=== PATIENT | female | born 1985 | race Two or more races ===

== ENCOUNTER → 2020-03-01 08:49 | Outpatient (BNVA) | payer MEDICAID, SELFPAY | PROVIDERS: PCP Internal Medicine; Visit Provider Nurse Practitioner | DX: Z76.89 Persons encountering health services in other specified circumstances (principal) ==

== ENCOUNTER → 2020-06-19 13:08 | Outpatient (BNVA) | payer MEDICAID, SELFPAY | PROVIDERS: PCP Internal Medicine; Visit Provider Nurse Practitioner ==

== ENCOUNTER 2020-08-27 12:19 | Emergency (ER) | payer MEDICAID, SELFPAY ==
--- NOTE | ~2020-08-27 | XR_ITS ---
EXAMINATION: XR HAND, RIGHT CLINICAL INFORMATION: Right hand injury COMPARISON: None TECHNIQUE: PA, lateral, and oblique views of the right hand. FINDINGS: Bone alignment is normal. No fracture or dislocation is seen. Joint spaces are normal. Soft tissues are normal. XR/XR hand RT 2V IMPRESSION: No fracture or dislocation seen.
[2020-08-27 12:34] VITALS: BP 125/74; PULSE 86; RESP 17; TEMP 35.9; O2SAT 98; BMI 38.6
--- NOTE | 2020-08-27 12:59 | ED_ITS ---
HPI - Extremity Problem General Chief complaint: Extremity Injury, Upper <SINCERE Irene Last Filed: 08/27/20 20:00> Stated complaint: right hand pain <SINCERE Irene Last Filed: 08/27/20 20:00> Time Seen by Provider: 08/27/20 12:58 <SINCERE Irene Last Filed: 08/27/20 20:00> Source: patient and educational interpreter <SINCERE Irene Last Filed: 08/27/20 20:00> Mode of arrival: ambulatory <SINCERE Irene Last Filed: 08/27/20 20:00> Limitations: language barrier <SINCERE Irene Last Filed: 08/27/20 20:00> History of Present Illness HPI Narrative: 34-year-old female here with right hand pain after a injury 1 week ago. Patient tells me she lost her balance falling causing a flexion injury to the right hand. Since then she has had persistent pain in the right hand and wrist. She is right-hand dominant. No numbness, tingling, coldness to the ham. No fevers, chills or redness <SINCERE Irene Last Filed: 08/27/20 20:00> MD Complaint: extremity pain and extremity swelling <SINCERE Irene Last Filed: 08/27/20 20:00> Related Data Home medications: Previous Rx's Medication Instructions Recorded levofloxacin 500 mg tablet 500 mg PO DAILY 14 Days #14 tab 03/01/20 metronidazole 500 mg tablet 500 mg PO TID 14 Days #42 tab 03/01/20 dicyclomine 20 mg tablet 20 mg PO QID 30 Days #120 tab 05/30/20 <SINCERE Irene Last Filed: 08/27/20 20:00> Allergies/Adverse reactions: Allergies Allergy/AdvReac Type Severity Reaction Status Date / Time SEAFOOD Allergy Unknown Rash Uncoded 03/01/20 08:51 <SINCERE Ierne Last Filed: 08/27/20 20:00> Review of Systems Review of Systems: Yes all other systems are reviewed and are negative <Salma Goldman NP - Last Filed: 08/27/20 20:00> Constitutional: Constitutional: Reports no additional constitutional complaints, Denies body ache(s), Denies chills, Denies fever(s), Denies headache(s) and Denies weakness <Salma Goldman NP - Last Filed: 08/27/20 20:00> Eyes: Eyes: Reports no additional eye complaints and Denies change in vision <Salma Goldman NP - Last Filed: 08/27/20 20:00> ENT: Reports system reviewed and no additional complaints, except as documented, Denies dizziness, Denies headache(s), Denies nasal congestion, Denies nasal discharge and Denies neck pain <Salma Goldman NP - Last Filed: 08/27/20 20:00> Cardiovascular: Cardiovascular: Reports no additional cardiovascular complaints, Denies chest pain, Denies leg edema and Denies dyspnea <Salma Goldman NP - Last Filed: 08/27/20 20:00> Respiratory: Respiratory: Reports no additional respiratory complaints, Denies cough and Denies dyspnea <Salma Goldman NP - Last Filed: 08/27/20 20:00> Gastrointestinal: Gastrointestinal: Reports no additional gastrointestinal complaints, Denies abdominal pain, Denies diarrhea, Denies nausea and Denies vomiting <Salma Goldman NP - Last Filed: 08/27/20 20:00> Genitourinary: Genitourinary: Reports no additional female genitourinary complaints and Denies urinary incontinence <Salma Goldman NP - Last Filed: 08/27/20 20:00> Musculoskeletal: Musculoskeletal: Reports no additional musculoskeletal complaints, Denies back pain, Reports arthralgias, Denies joint swelling, Reports limited range of motion, Denies neck pain, Denies numbness and Denies tingling <Salma Goldman NP - Last Filed: 08/27/20 20:00> Integumentary/Breasts: Skin/Breast: Reports system reviewed and no additional complaints, except as docu and Denies rash <Salma Goldman NP - Last Filed: 08/27/20 20:00> Neurologic: Reports system reviewed and no additional complaints, except as documented, Denies Abnormal speech present, Denies dizziness, Denies heada noelle(s), Denies numbness, Denies tingling and Denies weakness <Salma Goldman NP - Last Filed: 08/27/20 20:00> [facility] Past Medical History Attestation statement: The following information was validated with the patient. <Salma Goldman NP - Last Filed: 08/27/20 20:00> Source: old records reviewed and nursing notes reviewed <Salma Goldman NP - Last Filed: 08/27/20 20:00> Surgical History: Surgical History Hx of section <Salma Goldman NP - Last Filed: 08/27/20 20:00> Family History Family History: Family History Father No problems noted. Mother Absolute anemia <Salma Goldman NP - Last Filed: 08/27/20 20:00> Social History Social History: Social History Household Members: Spouse Alcohol intake: current Alcohol intake frequency: does not drink <Salma Goldman NP - Last Filed: 08/27/20 20:00> Physical Exam Vital Signs: Vital Signs: Last Vital Signs Temp 96.6 F L 08/27/20 12:34 Pulse 86 08/27/20 12:34 Resp 17 08/27/20 12:34 BP 125/74 08/27/20 12:34 Pulse Ox 98 08/27/20 12:34 Body Mass Index 38.6 <Salma Goldman NP - Last Filed: 08/27/20 20:00> Vital Signs: Last Vital Signs Temp 96.6 F L 08/27/20 12:34 Pulse 86 08/27/20 12:34 Resp 17 08/27/20 12:34 BP 125/74 08/27/20 12:34 Pulse Ox 98 08/27/20 12:34 Body Mass Index 38.6 <Markie Meidna MD - Last Filed: 10/04/20 14:58> Const: General: cooperative, healthy appearing, comfortable and no acute distress <Salma Goldman NP - Last Filed: 08/27/20 20:00> Orientation/consciousness: patient oriented x3 <Salma Goldman NP - Last Filed: 08/27/20 20:00> Limitations: no limitations <Salma Goldman NP - Last Filed: 08/27/20 20:00> HENMT: Head: Yes normal to inspection <Salma Goldman NP - Last Filed: 08/27/20 20:00> Ears: hearing grossly normal bilaterally <Salma Goldman NP - Last Filed: 08/27/20 20:00> General nose exam: Normal external nose present <SINCERE Irene Last Filed: 08/27/20 20:00> Face and sinus: Yes normal facial exam <Salma Goldman NP - Last Filed: 08/27/20 20:00> Mouth: Normal oral and palatal mucosa present <Salma Goldman NP - Last Filed: 08/27/20 20:00> Throat: Yes posterior oropharynx normal <Salma Goldman NP - Last Filed: 08/27/20 20:00> Eyes: General: appearance normal, both eyes and all related structures <Salma Goldman NP - Last Filed: 08/27/20 20:00> Pupils: Equal, round and reactive pupils present <Salma Goldman NP - Last Filed: 08/27/20 20:00> Neck: Neck: Yes normal visual inspection <Salma Goldman NP - Last Filed: 08/27/20 20:00> Chest: Chest palpation & inspection: normal inspection of the chest <Salma Goldman NP - Last Filed: 08/27/20 20:00> Resp: Effort & Inspection: normal respiratory effort <SINCERE Irene Last Filed: 08/27/20 20:00> Auscultation: clear to auscultation bilaterally <SINCERE Irene Last Filed: 08/27/20 20:00> Cardio: Rate: regular rate <Salma Goldman NP - Last Filed: 08/27/20 20:00> Rhythm: regular rhythm <Salma Goldman NP - Last Filed: 08/27/20 20:00> Peripheral pulses: Peripheral pulses 2+ throughout <Salma Goldman NP - Last Filed: 08/27/20 20:00> GI: Inspection: Yes normal to inspection <Salma Goldman NP - Last Filed: 08/27/20 20:00> Palpation (GI): Soft to palpation and nontender <Salma Goldman NP - Last Filed: 08/27/20 20:00> Auscultation: normal bowel sounds <Salma Goldman NP - Last Filed: 08/27/20 20:00> Back/Spine/Pelvis: Thoracic/Lumbar Spine: thoracic and lumbar spine normal to inspection <Salma Goldman NP - Last Filed: 08/27/20 20:00> Skin: General skin exam: no rashes or lesions noted <Salma Goldman NP - Last Filed: 08/27/20 20:00> Neuro: General: patient oriented x3, no focal motor deficits and normal sensation to monofilament <Salma Goldman NP - Last Filed: 08/27/20 20:00> Cranial nerves: Yes Equal, round and reactive pupils present <Salma Goldman NP - Last Filed: 08/27/20 20:00> Cognition (Neuro): normal cognition <Salma Goldman NP - Last Filed: 08/27/20 20:00> Speech: No Abnormal speech present <Salma Goldman NP - Last Filed: 08/27/20 20:00> Gait exam (Neuro): Normal gait present <Salma Goldman NP - Last Filed: 08/27/20 20:00> Motor exam (neuro): 5/5 motor strength present throughout <Salma Goldman NP - Last Filed: 08/27/20 20:00> Extrem: Other: Pain over the distal dorsal aspect of the right hand at the proximal 1st and 2nd digit. There is snuffbox tenderness. No obvious deformity. Neurovascular intact distally <Salma Goldman NP - Last Filed: 08/27/20 20:00> General: Yes normal to inspection <Salma Goldman NP - Last Filed: 08/27/20 20:00> Course Course Course Narrative: 34-year-old female here with right hand and wrist pain status post injury. Will need x-rays 1400-x-ray show no bony abnormality. The patient is 7 days out from her injury so I would expect if she had a scaphoid fracture this would show up on her x-ray at this point. Will place on wrist splint. Recommended RICE. Reviewed worrisome signs and symptoms of when to return to the emergency department. Comfortable discharge home. <Salma Goldman NP - Last Filed: 08/27/20 20:00> I have reviewed the chart <Markie Medina MD - Last Filed: 10/04/20 14:58> Procedures Procedure Narrative Procedure Narrative: wrist velcro splint <Salma Goldman NP - Last Filed: 08/27/20 20:00> MDM - Extremity (Nontraumatic) MDM Narrative Medical decision making narrative: Sprain versus strain versus fracture <Salma Goldman NP - Last Filed: 08/27/20 20:00> Medical Records Attestation: I reviewed the patient's medical records. <Salma Goldman NP - Last Filed: 08/27/20 20:00> Lab Data Attestation: I reviewed the patient's lab results. <Salma Goldman NP - Last Filed: 08/27/20 20:00> Imaging Data hand right x-ray: Attestation: I personally reviewed and interpreted this imaging study as follows: <Salma Goldman NP - Last Filed: 08/27/20 20:00> Radiologist's impression: EXAMINATION: XR HAND, RIGHT CLINICAL INFORMATION: Right hand injury COMPARISON: None TECHNIQUE: PA, lateral, and oblique views of the right hand. FINDINGS: Bone alignment is normal. No fracture or dislocation is seen. Joint spaces are normal. Soft tissues are normal. XR/XR hand RT 2V IMPRESSION: No fracture or dislocation seen. <Salma Goldman NP - Last Filed: 08/27/20 20:00> Discharge Plan Discharge Clinical Impression: Sprain and strain of wrist <Salma Goldman NP - Last Filed: 08/27/20 20:00> Patient Disposition: Home, Self-Care <Salma Goldman NP - Last Filed: 08/27/20 20:00> Instructions: Wrist Sprain (ED) <Salma Goldman NP - Last Filed: 08/27/20 20:00> Additional Instructions: Use the splint for comfort Follow-up with her primary care doctor in 5-7 days if you have persistent pain Ice, elevation, limit use of the hand <Salma Goldman NP - Last Filed: 08/27/20 20:00> Prescriptions: No Action dicyclomine 20 mg tablet 20 mg PO QID 30 Days Qty: 120 RF: 1 levofloxacin 500 mg tablet 500 mg PO DAILY 14 Days Qty: 14 RF: 0 metronidazole [Flagyl] 500 mg tablet 500 mg PO TID 14 Days Qty: 42 RF: 0 <Salma Goldman NP - Last Filed: 08/27/20 20:00> Referrals: [facility] [Primary Care Provider] - 2 days <Salma Goldman NP - Last Filed: 08/27/20 20:00> Interventions: ED Discharge Assessment Last Done: 08/27/20 14:17 <Salma Goldman NP - Last Filed: 08/27/20 20:00> Discharge Date/Time: 08/27/20 14:17 <Salma Goldman NP - Last Filed: 08/27/20 20:00> Print Language: Uzbek <Salma Goldman NP - Last Filed: 08/27/20 20:00>
== END 2020-08-27 14:17 | disposition home or self-care (01) ==
PROVIDERS: Emergency Provider Emergency Medicine
DX: S63.501A Unspecified sprain of right wrist, initial encounter (principal); S66.912A Strain of unspecified muscle, fascia and tendon at wrist and hand level, left hand, initial encounter; W19.XXXA Unspecified fall, initial encounter; Y93.9 Activity, unspecified; Y92.9 Unspecified place or not applicable; Y99.9 Unspecified external cause status
CPT/HCPCS: 29125; 73120; 99284

== ENCOUNTER 2020-10-19 14:52 | Outpatient (REF) | payer MEDICAID, SELFPAY ==
[2020-10-19 17:17] LABS: MANUAL DIFF FLAG NO
[2020-10-19 17:19] LABS: Basophils Percent Auto 0.1 % (0-2); Eosinophils Absolute Auto 0.3 X10*3/uL (0.0-0.4); Eosinophils Percent Auto 2.9 % (0-4); Hematocrit 33.6 % (37-47); Hemoglobin 10.1 g/dl (12.0-16.0); Imm Gran Abs Auto 0.04 X10*3/uL (0.00-0.03); Imm Gran Pct Auto 0.5 % (0.0-0.4); Lymphocytes Percent Auto 22.2 % (20-40); Mean Corpuscular HGB Conc 30.1 g/dl (31.0-35.0); Mean Platelet Volume 10.7 fL (9.4-12.3); Monocytes Absolute Auto 0.7 X10*3/uL (0.1-1.2); Monocytes Percent Auto 7.9 % (2-11); Neutrophils Absolute Auto 5.9 X10*3/uL (2.0-8.3); Neutrophils Percent Auto 66.4 % (45-73); Platelet Count 314 X10*3/uL (160-400); Red Cell Distribution Width 18.8 % (11.0-16.0); White Blood Count 8.9 X10*3/uL (4.8-10.8)
[2020-10-19 17:41] LABS: Anion Gap 11 (12-20); C Reactive Protein 1.05 mg/dL (< or = 0.50); Carbon Dioxide 29 mmol/L (22-29); Chloride 103 mmol/L (96-108); Potassium 3.6 mmol/L (3.3-5.1); Sodium 139 mmol/L (135-145)
== END 2020-10-19 14:53 | disposition home or self-care (01) ==
LOC: HO.XRAY 14:52
PROVIDERS: Visit Provider Nurse Practitioner
DX: K64.9 Unspecified hemorrhoids (principal); K52.9 Noninfective gastroenteritis and colitis, unspecified; R31.9 Hematuria, unspecified; R82.998 Other abnormal findings in urine; M54.9 Dorsalgia, unspecified
CPT/HCPCS: 36415; 80051; 85025; 86140; 99212

== ENCOUNTER → 2021-09-25 10:43 | Outpatient (BNVA) | payer MEDICAID, SELFPAY | PROVIDERS: PCP Internal Medicine; Visit Provider Obstetrics & Gynecology | DX: Z01.419 Encounter for gynecological examination (general) (routine) without abnormal findings (principal) | CPT/HCPCS: 99202 ==

== ENCOUNTER 2021-10-06 13:53 | Emergency (ER) | payer MEDICAID, SELFPAY ==
[2021-10-06 14:23] VITALS: BP 118/58; BP 128/83; PULSE 86; PULSE 96; RESP 18; TEMP 36.2; O2SAT 97; O2SAT 98; BMI 41.5
[2021-10-06 15:38] VITALS: BP 138/60; PULSE 61; RESP 16; TEMP 36.8; O2SAT 98
--- NOTE | 2021-10-06 15:38 | ED.PSYCH ---
HPI - Psych General Chief Complaint: Psychiatric Symptoms Stated Complaint: SI Time Seen by Provider: 10/06/21 15:32 Source: patient Mode of arrival: ambulatory Limitations: no limitations History of Present Illness HPI Narrative: 35-year-old female with pmh of anixety and depresson presents to ED for anxiety attack. Patient states she had a panic attack today due to argument with family and mother. Patient states that family issues. Patient states she became so overwhelmed with emotion and anger she started having anxiety attack came to the ED. states her mom and herself have a bad history and relationship. Patient denies any suicidal or homicidal ideation. Patient denies any auditory visual hallucinations. presently patient asymptomatic. Patient does not have any physical complaints. patient denies any chest pain, shortness of breath, pleurisy, leg swelling, calf pain, coughing up blood, recent long travel, recent surgery, history or blood clots, or control pills Related Data Home Medications Medication Instructions Recorded Confirmed albuterol sulfate 90 mcg/actuation 1 inh inhalation Q4-6H PRN 10/19/20 breath activated powder inhaler,sensor amitriptyline 10 mg tablet 10 mg PO BEDTIME 09/25/21 ferrous sulfate 324 mg (65 mg 324 mg PO BID 09/25/21 iron) tablet,delayed release lorazepam 0.5 mg tablet 0.5 mg PO DAILY anxiety 09/25/21 quetiapine 100 mg tablet 100 - 200 mg PO BEDTIME 09/25/21 venlafaxine 75 mg capsule,extended 75 mg PO QAM 09/25/21 release 24 hr Previous Rx's Medication Instructions Recorded dicyclomine 20 mg tablet 20 mg PO QID 30 days #120 tabs 05/30/20 hydrocortisone 2.5 % topical cream 1 appl MO BID PRN hemorrhoids #30 10/19/20 with perineal applicator grams (Proctosol HC) Allergies Allergy/AdvReac Type Severity Reaction Status Date / Time SEAFOOD Allergy Unknown Rash Uncoded 10/06/21 14:22 Review of Systems Review of Systems: anxiety, panic attack. Yes all other systems are reviewed and are negative PMFSH Past Medical History Surgical History Hx of section Family History Family History Father No problems noted. Mother Absolute anemia Social History Social History Household Members: Spouse and Children Housing: Apartment Alcohol intake: current Alcohol intake frequency: does not drink Patient Tobacco Use Status: Never used Tobacco Advance Directives: No Advance Directives Information Provided: Yes Sexual orientation: Straight/Heterosexual Gender identity: Female Physical Exam Vital Signs: Vital Signs: Last Vital Signs Temp 98.2 F 10/06/21 15:38 Pulse 61 10/06/21 15:38 Resp 16 10/06/21 15:38 BP 138/60 10/06/21 15:38 Pulse Ox 98 10/06/21 15:38 O2 Del Method 10/06/21 15:38 BMI result Body Mass Index 41.5 Const: General: cooperative, healthy appearing, comfortable, no acute distress, well developed, alert and awake Orientation/consciousness: patient oriented x3 HEENT: Head: Yes normal to inspection, Yes No palpable skull fracture present, Yes normocephalic, Yes atraumatic and No abrasion Eyes: General: appearance normal, both eyes and all related structures Neck: Neck: Yes normal visual inspection, Yes full ROM, Yes no lymphadenopathy, Yes no meningeal signs, Yes trachea midline, Yes supple, No anterior neck swelling and No tender Chest: Chest palpation & inspection: normal inspection of the chest and normal palpation of entire chest wall Resp: Effort & Inspection: normal respiratory effort and able to speak in complete sentences Auscultation: clear to auscultation bilaterally Cardio: Jugular venous distension: no JVD Heart sounds: S1 normal heart sound present and S2 normal heart sound present GI: Inspection: Yes normal to inspection and No abdominal wall ecchymosis Palpation (GI): Soft to palpation, not firm, nontender, no guarding and not rigid : General: No CVA tenderness and Yes no CVA tenderness Back/Spine/Pelvis: Back: no CVA tenderness, No CVA tenderness and No back tenderness Skin: General skin exam: no rashes or lesions noted and elasticity normal Neuro: General: patient oriented x3, gait normal, no meningeal signs and CN's II-XI intact bilaterally Cranial nerves: Yes CN's II-XII intact bilaterally Extrem: General: Yes normal to inspection and Yes full ROM Psych: Appearance: grossly normal, well kempt and not disheveled Course Course Course Narrative: patient presently is not suicidal or homicidal. do not believe patient needs psych in patient will contact [facility]. Reevaluation(s) Reevaluation #1: care team consulted Aliya evaluated patient and agree with assessment the patient can be discharged. Patient states tomorrow she will follow-up with her therapist and psychiatrist. Patient is not suicidal/homicidal or having auditory/visual hallucinations. Time: 16:52 MDM - Psych MDM Narrative Medical decision making narrative: anxiety Discharge Plan Discharge Clinical Impression: Anxiety Patient Disposition: Home, Self-Care Instructions: Anxiety (ED) Prescriptions: No Action dicyclomine 20 mg tablet 20 mg PO QID 30 Days Qty: 120 1RF albuterol sulfate 90 mcg/actuation aero powdr breath act w/sensor 1 inh inhalation Q4-6H PRN hydrocortisone [Proctosol HC] 2.5 % cream with perineal applicator 1 appl MO BID PRN (Reason: hemorrhoids) Qty: 30 6RF amitriptyline 10 mg tablet 10 mg PO BEDTIME lorazepam 0.5 mg tablet 0.5 mg PO DAILY quetiapine 100 mg tablet 100 - 200 mg PO BEDTIME venlafaxine 75 mg capsule,extended release 24hr 75 mg PO QAM ferrous sulfate 324 mg (65 mg iron) tablet,delayed release (DR/EC) 324 mg PO BID Stand Alone Forms: Work/School Release Print Language: Kiswahili
--- NOTE | 2021-10-06 15:42 | PC.NURSE ---
patient a&ox3, with cyber software engineer this nurse and provider at bedside, pt denies si/hi, per provider pt does not need a change director as she is of no harm to herself or anybody else.
--- NOTE | 2021-10-06 16:14 | MHC.CARE ---
CARE team consult requested to assess pt's level of risk for harm to self or others. Pt arrived by ambulance after having a panic attack s/p a verbal altercation with family at her home. Per report- the pt called EMS due to how emotional she was feeling at that time. In conversation with her nurse and ED provider she has denied SI/HI/AVH, reported that she has outpatient providers, and intends to contact her providers in the morning to discuss her worsening anxiety and depression. This gag writer reviewed pt's medical record and visit history. Pt is not previously known to the hospital's behavioral health or psychiatry departments and has had no historical visits for complaints related to mental health or substance use disorders. Pt is currently calm and cooperative, alert and oriented, and does not appear to be in any distress at this time. She does not require any further evaluation at this time and is requesting to return home.
== END 2021-10-06 17:11 | disposition home or self-care (01) ==
PROVIDERS: Emergency Provider Emergency Medicine
DX: F33.1 Major depressive disorder, recurrent, moderate (principal); F41.1 Generalized anxiety disorder; F43.0 Acute stress reaction; Z79.899 Other long term (current) drug therapy
CPT/HCPCS: 99284

== ENCOUNTER 2022-01-13 08:54 | Outpatient (REF) | payer MEDICAID, SELFPAY ==
--- NOTE | 2022-01-13 | PFT_ITS ---
FINDINGS: Forced vital capacity 91%, FEV1 96%, [id number]% 100% and MVV 89%. Post bronchodilator therapy, there is no significant change. Total lung capacity 88%. Residual volume 71%. Diffusion capacity 95% CONCLUSION: Normal pulmonary function test. No evidence of obstructive or restrictive pulmonary disorder. MD BRIAN Delaney/EVON / [id number]
== END 2022-01-13 08:55 | disposition home or self-care (01) ==
LOC: HO.RESP 08:54
PROVIDERS: PCP Internal Medicine; Visit Provider Internal Medicine
DX: R06.02 Shortness of breath (principal)
CPT/HCPCS: 94060; 94727; 94729

== ENCOUNTER 2022-02-02 12:12 | Emergency (ER) | payer MEDICAID, SELFPAY ==
--- NOTE | ~2022-02-02 | CT_ITS ---
EXAMINATION: CT ABDOMEN AND PELVIS WITH CONTRAST CLINICAL INFORMATION: Suprapubic and left lower quadrant tenderness, rectal bleeding COMPARISON: None TECHNIQUE: Multidetector volumetric images were obtained from the superior aspect of the liver through the pubic symphysis following administration 85 mL of Omnipaque 350 intravenous contrast. Sagittal and coronal reformatted images were obtained on the technologist's workstation. Oral contrast: No This CT examination was performed using dose optimization techniques as appropriate, variously including the following: *Automated exposure control *Adjustment of mA and/or kV according to patient size (this includes techniques or standardized protocols for targeted exams where dose is matched to indication/reason for exam; i.e. extremities or head) *Use of iterative reconstruction technique DLP: 755 mGy-cm FINDINGS: LUNG BASES: The visualized lung bases are unremarkable. LIVER, GALLBLADDER, AND BILIARY TREE: The liver is normal in size, shape, and attenuation. No focal hepatic lesion or biliary ductal dilatation is present. The gallbladder is unremarkable with no evidence of radiopaque gallstones, gallbladder wall thickening, or obvious pericholecystic inflammatory changes. PANCREAS: Unremarkable. SPLEEN: Unremarkable. ADRENAL GLANDS: Unremarkable. KIDNEYS AND URETERS: The kidneys are normal in size, shape, and attenuation. No hydronephrosis, hydroureter, or calculi seen. No perinephric stranding. BLADDER: Unremarkable. GASTROINTESTINAL TRACT: There is circumferential thickening of sigmoid colon and rectum consistent with a distal colitis. Appendix not clearly seen. There is no diverticulitis. Mesentery is unremarkable. Small bowel loops are nondilated. ABDOMINAL WALL: There is moderate size 2.5 cm fat-containing umbilical hernia. There is subcutaneous 1.3 cm lymph node adjacent to the lower abdominal wall scar, most likely scar for section on the right LYMPH NODES: Small inguinal lymph nodes seen bilaterally VASCULAR: Unremarkable. PELVIC VISCERA: Uterus is irregular with possible uterine fibroids and most likely scar following section. Right ovary enlarged with 3.3 x 2.6 cm cyst. Left adnexa is unremarkable. OSSEOUS STRUCTURES: Unremarkable. CT/CT abdomen pelvis w IV con IMPRESSION: 1. Distal colitis. 2. Right ovarian cyst. 3. Fat-containing umbilical hernia. 4. Subcutaneous lymph node adjacent to the scar Fleischner guidelines were followed.
[2022-02-02 12:15] VITALS: BP 141/83; PULSE 97; RESP 18; TEMP 36.7; O2SAT 96; BMI 33.3
[2022-02-02 12:26] LABS: Hematocrit 35.2 % (37.0-47.0); Hemoglobin 10.8 g/dl (12.0-16.0); Mean Corpuscular HGB Conc 30.7 g/dl (31.0-35.0); Mean Corpuscular Hemoglobin 22.3 pg (27.0-33.0); Mean Corpuscular Volume 72.6 fL (80.0-98.0); Mean Platelet Volume 11.1 fL (9.4-12.3); Platelet Count 272 X10*3/uL (160-400); Red Blood Count 4.85 X10*6/uL (4.20-5.50); Red Cell Distribution Width 16.2 % (11.0-16.0); White Blood Count 8.2 X10*3/uL (4.8-10.8)
[2022-02-02 12:50] LABS: Alanine Aminotransferase 10 U/L (0-31); Albumin Level 4.1 g/dL (3.5-5.0); Alkaline Phosphatase 91 U/L (39-117); Anion Gap 16 (12-20); Aspartate Amino Transferase 9 U/L (5-31); Bilirubin Direct < 0.2 mg/dL (0.0-0.5); Bilirubin Total 0.2 mg/dL (0.0-1.0); Blood Urea Nitrogen 10 mg/dL (9-16); Calcium 9.5 mg/dL (8.4-10.2); Carbon Dioxide 24 mmol/L (22-29); Chloride 102 mmol/L (96-108); Creatinine Clr Calc Pharmacy 130.4; Estimated Glomerular Filt Rate > 60; Glucose Random 71 mg/dL (60-115); Lipase 6 U/L (8-78); Potassium 3.9 mmol/L (3.3-5.1); Sodium 138 mmol/L (135-145); Total Protein 7.9 g/dL (6.5-8.0)
--- NOTE | 2022-02-02 14:46 | ED.ABDPAIN ---
HPI - Abdominal Pain General Chief Complaint: Abdominal Pain Stated Complaint: abd pain blood in stool Time Seen by Provider: 02/02/22 14:41 Source: patient Mode of arrival: ambulatory Limitations: no limitations and language barrier (Marshallese-speaking medical insurance biller utilized) History of Present Illness HPI narrative: Patient is a 36-year-old female who presents emergency department for evaluation of lower abdominal pain and rectal bleeding. She states that for 4 days she has been experiencing nausea without vomiting, midline and left lower quadrant abdominal pain. She was seen by her doctor recently for constipation, advised to increase daily fiber intake, and she began noticing bright red blood with bowel movement. Denies rectal bleeding outside of periods of straining for bowel movement. Reports a history of hemorrhoids but has not had any issues with them in quite some time. States she has been followed by GI in the past, but states she never followed up to have a colonoscopy performed as she was previously advised. She denies fevers, chills, chest pain, shortness of breath, dizziness, lightheadedness, dysuria, urinary frequency/urgency/hesitancy, possibility of , pelvic pain, vaginal discharge. Related Data Home Medications Medication Instructions Recorded Confirmed albuterol sulfate 90 mcg/actuation 1 inh inhalation Q4-6H PRN 10/19/20 breath activated powder inhaler,sensor amitriptyline 10 mg tablet 10 mg PO BEDTIME 09/25/21 ferrous sulfate 324 mg (65 mg 324 mg PO BID 09/25/21 iron) tablet,delayed release lorazepam 0.5 mg tablet 0.5 mg PO DAILY anxiety 09/25/21 quetiapine 100 mg tablet 100 - 200 mg PO BEDTIME 09/25/21 venlafaxine 75 mg capsule,extended 75 mg PO QAM 09/25/21 release 24 hr Previous Rx's Medication Instructions Recorded dicyclomine 20 mg tablet 20 mg PO QID 30 days #120 tabs 05/30/20 hydrocortisone 2.5 % topical cream 1 appl [place] BID PRN hemorrhoids #30 10/19/20 with perineal applicator grams (Proctosol HC) ciprofloxacin HCl 500 mg tablet 500 mg PO BID #20 tabs 02/02/22 metronidazole 500 mg tablet 500 mg PO BID #20 tabs 02/02/22 Allergies Allergy/AdvReac Type Severity Reaction Status Date / Time SEAFOOD Allergy Unknown Rash Uncoded 10/06/21 14:22 Review of Systems Review of Systems Constitutional : No Weight loss, No Fever, No Chills ENT/Mouth :? No sore throat, No Rhinorrhea Eyes: No Swelling, No Redness Cardiovascular : No Chest Pain, No SOB, No Edema Respiratory : No Cough, No Sputum, No Wheezing Gastrointestinal : Positive Nausea, no Vomiting, no Diarrhea, positive abdominal pain, positive Hematochezia, No Melena Genitourinary : No Dysuria, No Urinary Frequency, No Hematuria, No Urgency? Musculoskeletal : No joint pain, No Myalgias, No Joint Swelling Skin : No Skin Lesions, No rash Neuro : No Weakness, No Numbness, No Dizziness, No Headache Psych : No Anxiety/Panic, No Depression Yes all other systems are reviewed and are negative [facility] Past Medical History Attestation statement: The following information was validated with the patient. Source: old records reviewed Surgical History Hx of section Family History Family History Father No problems noted. Mother Absolute anemia Social History Social History Household Members: Spouse and Children Housing: Apartment Alcohol intake: current Alcohol intake frequency: holidays/special occasions only Patient Tobacco Use Status: Never used Tobacco Smoked in Last 30 Days: No Advance Directives: No Advance Directives Information Provided: Yes Sexual orientation: Straight/Heterosexual Gender identity: Female Physical Exam ED Vital Signs: Vital Signs - 24 hr 02/02/22 12:15 02/02/22 15:15 Temperature 98.1 F 98.7 F Pulse Rate 97 69 Respiratory Rate 18 18 Blood Pressure 141/83 H 111/64 Pulse Oximetry 96 98 Oxygen Delivery Method Room Air Room Air BMI result Body Mass Index 33.3 Appearance: Alert.?Oriented to person, place and time. No acute distress.?Normal affect. Eyes: Pupils equal, round and reactive to light.? ENT: Pharynx normal.?? Neck: Normal inspection.? Neck supple.?? CVS: Heart sounds normal. Normal heart rate and rhythm.? Pulses normal.?? Respiratory: No respiratory distress.? Lung sounds clear to auscultation bilaterally?? Abdomen: Soft with suprapubic and left lower quadrant tenderness upon palpation. Normoactive bowel sounds. No pulsatile mass. Negative Rovsing sign, negative obturator's sign, negative psoas sign, no rebound tenderness.?? Rectal: Performed with ED sleep technician, rory Falcon; no fissures, no hemorrhoids, no lesions or rashes. No hematochezia, no melena. Skin: Skin warm and dry.? Normal skin color.? Normal skin turgor.?? Extremities: No lower extremity edema.? Neuro: Moves all extremities spontaneously. Sensation intact bilaterally. No focal neuro deficits. Ambulates with normal steady gait. Course Course Course Narrative: Patient is a 36-year-old female with a past medical history of colitis, rectal bleeding, hemorrhoids previously followed by GI but has not been evaluated over the past year who presents to the emergency department today for abdominal pain and hematochezia. She is overall well-appearing. Vital signs stable. No apparent distress. Rectal examination without hematochezia, no melena, no hemorrhoids or fissures upon examination. Abdominal exam notable for suprapubic and left lower quadrant tenderness upon palpation. Will obtain CBC to evaluate for leukocytosis/ anemia, CMP and lipase to evaluate for abnormal electrolytes /abnormal renal function/ abnormal hepatic/biliary function, CT the abdomen and pelvis to evaluate for colitis, diverticulitis, obstruction and will obtain urine / Urinalysis. Patient received 1 L normal saline IV, ondansetron 4 mg IV for nausea, ketorolac 30 mg IV for pain. Reevaluation(s) Reevaluation #1: CBC reveals a microcytic anemia consistent with baseline, CMP is unremarkable. Urine test is negative. Urinalysis with microscopic hematuria, no evidence of urinary tract infection. Occult stool is positive. CT reveals circumferential thickening of the sigmoid colon and rectum consistent with a distal colitis, no diverticulitis. Discussed these findings with patient, Given she is able to tolerate oral intake, will trial course of oral ciprofloxacin and metronidazole, for 10 days, discussed bland diet, outpatient follow-up with Gastroenterology. This is likely the cause for occult stool or hematochezia. Patient verbalized understanding. Reviewed worsening signs and symptoms to return back to the emergency department for. All questions were answered. Patient discharged home in stable condition. Medications Administered Discontinued Medications Generic Name Dose Route Start Last Admin Trade Name Freq PRN Reason Stop Dose Admin Sodium Chloride 1,000 mls @ 999 mls/hr 02/02/22 15:15 02/02/22 15:35 Ns IV 02/02/22 16:15 999 mls/hr .Q1H1M SHAYNE Administration Iohexol 100 ml 02/02/22 15:50 02/02/22 15:52 Iohexol 350 Mg/Ml 100 Ml Infus..Btl IV 02/02/22 15:51 85 ml ONCE ONE Administration Ketorolac Tromethamine 30 mg 02/02/22 15:14 02/02/22 15:35 Ketorolac Tromethamine 30 Mg/Ml Vial IVPUSH 02/02/22 15:15 30 mg ONCE ONE Administration Ondansetron HCl 4 mg 02/02/22 15:14 02/02/22 15:35 Ondansetron Hcl 4 Mg/2 Ml Vial IVPUSH 02/02/22 15:15 4 mg ONCE ONE Administration MDM - Abdominal Pain Medical Records Attestation: I reviewed the patient's medical records. Lab Data Attestation: I reviewed the patient's lab results. Result diagrams: 02/02/22 12:21 02/02/22 12:21 Labs: Lab Results 02/02/22 02/02/22 02/02/22 Range/Units 12:21 12:21 15:12 WBC 8.2 (4.8-10.8) X10*3/uL RBC 4.85 (4.20-5.50) X10*6/uL Hgb 10.8 L (12.0-16.0) g/dl Hct 35.2 L (37.0-47.0) % MCV 72.6 L (80.0-98.0) fL MCH 22.3 L (27.0-33.0) pg MCHC 30.7 L (31.0-35.0) g/dl RDW 16.2 H (11.0-16.0) % Plt Count 272 (160-400) X10*3/uL MPV 11.1 (9.4-12.3) fL Absolute Nucleated RBC 0.000 (0.0-0.012) X10*3/uL Nucleated RBC % (auto) 0.0 (0.0-0.2) /100WBC Sodium 138 (135-145) mmol/L Potassium 3.9 (3.3-5.1) mmol/L Chloride 102 (96-108) mmol/L Carbon Dioxide 24 (22-29) mmol/L Anion Gap 16 (12-20) BUN 10 (9-16) mg/dL Creatinine 0.67 (0.5-1.4) mg/dL Estim Creat Clear Calc 130.4 Estimated GFR > 60 Random Glucose 71 (60-115) mg/dL Calcium 9.5 (8.4-10.2) mg/dL Total Bilirubin 0.2 (0.0-1.0) mg/dL Direct Bilirubin < 0.2 (0.0-0.5) mg/dL AST 9 (5-31) U/L ALT 10 (0-31) U/L Alkaline Phosphatase 91 (39-117) U/L Total Protein 7.9 (6.5-8.0) g/dL Albumin 4.1 (3.5-5.0) g/dL Lipase 6 L (8-78) U/L Urine Color Urine Appearance Urine pH (5.0-9.0) Ur Specific [place] (1.005-1.025) Urine Protein (Neg-Trace) mg/dL Urine Glucose (UA) (Negative) mg/dL Urine Ketones (Negative) mg/dL Urine Blood (Negative) Urine Nitrite (Negative) Ur Leukocyte Esterase (Negative) Urine RBC (0-2) /HPF Urine WBC (0-5) /HPF Ur Squamous Epith Cells (0-2) /HPF Urine Bacteria (None Seen) Hyaline Casts (0-2) /LPF Urine Test NEGATIVE (NEGATIVE) Stool Occult Blood (NEGATIVE) 02/02/22 02/02/22 Range/Units 15:12 15:13 WBC (4.8-10.8) X10*3/uL RBC (4.20-5.50) X10*6/uL Hgb (12.0-16.0) g/dl Hct (37.0-47.0) % MCV (80.0-98.0) fL MCH (27.0-33.0) pg MCHC (31.0-35.0) g/dl RDW (11.0-16.0) % Plt Count (160-400) X10*3/uL MPV (9.4-12.3) fL Absolute Nucleated RBC (0.0-0.012) X10*3/uL Nucleated RBC % (auto) (0.0-0.2) /100WBC Sodium (135-145) mmol/L Potassium (3.3-5.1) mmol/L Chloride (96-108) mmol/L Carbon Dioxide (22-29) mmol/L Anion Gap (12-20) BUN (9-16) mg/dL Creatinine (0.5-1.4) mg/dL Estim Creat Clear Calc Estimated GFR Random Glucose (60-115) mg/dL Calcium (8.4-10.2) mg/dL Total Bilirubin (0.0-1.0) mg/dL Direct Bilirubin (0.0-0.5) mg/dL AST (5-31) U/L ALT (0-31) U/L Alkaline Phosphatase (39-117) U/L Total Protein (6.5-8.0) g/dL Albumin (3.5-5.0) g/dL Lipase (8-78) U/L Urine Color Yellow Urine Appearance Clear Urine pH 6.0 (5.0-9.0) Ur Specific [place] 1.025 (1.005-1.025) Urine Protein Negative (Neg-Trace) mg/dL Urine Glucose (UA) Negative (Negative) mg/dL Urine Ketones Negative (Negative) mg/dL Urine Blood Small (1+) H (Negative) Urine Nitrite Negative (Negative) Ur Leukocyte Esterase Negative (Negative) Urine RBC 3-5 H (0-2) /HPF Urine WBC 0-5 (0-5) /HPF Ur Squamous Epith Cells 3-5 (0-2) /HPF Urine Bacteria None Seen (None Seen) Hyaline Casts 0-2 (0-2) /LPF Urine Test (NEGATIVE) Stool Occult Blood POSITIVE (NEGATIVE) Imaging Data CT scan - abdomen: Radiologist's impression: CT/CT abdomen pelvis w IV con IMPRESSION: 1.? Distal colitis. 2.? Right ovarian cyst. 3.? Fat-containing umbilical hernia. 4. Subcutaneous lymph node adjacent to the scar Fleischner guidelines were followed. Discharge Plan Discharge Clinical Impression: Colitis Patient Disposition: Home, Self-Care Instructions: Colitis (ED) Additional Instructions: As we discussed, your CT scan reveals colitis, which you have had in the past as well, this is likely the reason that you are also noticing rectal bleeding. You have been given to antibiotics, prescriptions were sent to your pharmacy please complete this entire course. Consider a bland diet including crackers, bananas, rice, soup, toast, boiled vegetables with slow progression to plain chicken or turkey, avoid any dairy products or foods high in fat or grease as these may make your symptoms worse. Please contact your primary care provider to arrange for follow-up within the next 3 days, additionally you should follow-up with Gastroenterology, as it was recommended in the past that you have a colonoscopy performed. Return to emergency department with any new or worsening symptoms or concerns. Lorenzo comentamos, daniel tomograf?a computarizada revela colitis, que tambi?n pereira tenido en el pasado, esta es probablemente la mitchell?n por la que tambi?n est? notando sangrado rectal. Le pepe dado antibi?ticos, las recetas se enviaron a daniel farmacia, complete todo audelia curso. Considere eloy dieta blanda que incluya galletas saladas, pl?tanos, arroz, sopa, tostadas, verduras hervidas con progresi?n lenta a cecily o pavo, evite cualquier producto l?cteo o alimentos con alto contenido de grasa o grasa, ya que pueden empeorar alexis s?ntomas. Comun?quese con daniel proveedor de atenci?n primaria para programar un seguimiento dentro de los pr?ximos 3 d?as; adem?s, debe realizar un seguimiento con Gastroenterolog?a, ya que en el pasado se recomend? que se realizara eloy colonoscopia. Regrese al departamento de emergencias con cualquier s?ntoma o inquietud nueva o que empeore. Prescriptions: New ciprofloxacin HCl 500 mg tablet 500 mg PO BID Qty: 20 0RF metronidazole 500 mg tablet 500 mg PO BID Qty: 20 0RF No Action dicyclomine 20 mg tablet 20 mg PO QID 30 Days Qty: 120 1RF albuterol sulfate 90 mcg/actuation aero powdr breath act w/sensor 1 inh inhalation Q4-6H PRN hydrocortisone [Proctosol HC] 2.5 % cream with perineal applicator 1 appl [place] BID PRN (Reason: hemorrhoids) Qty: 30 6RF amitriptyline 10 mg tablet 10 mg PO BEDTIME lorazepam 0.5 mg tablet 0.5 mg PO DAILY quetiapine 100 mg tablet 100 - 200 mg PO BEDTIME venlafaxine 75 mg capsule,extended release 24hr 75 mg PO QAM ferrous sulfate 324 mg (65 mg iron) tablet,delayed release (DR/EC) 324 mg PO BID Referrals: Malika Underwood ANP-C [Nurse Practitioner] - Radha Cherry MD [Primary Care Provider] - Print Language: Marshallese
[2022-02-02 15:15] VITALS: BP 111/64; PULSE 69; RESP 18; TEMP 37.1; O2SAT 98
[2022-02-02 15:25] LABS: Appearance Urine Clear; Color Urine Yellow; Glucose Urine UA Negative (Negative); Leukocyte Esterase Urine Negative (Negative); Nitrite Urine Negative (Negative); Specific Gravity - Urine 1.025 (1.005-1.025); UMIC TRIGGER UACC YES; Urine Blood Small (1+) (Negative); Urine Ketones Negative (Negative); Urine Protein Negative (Neg-Trace)
[2022-02-02 15:25] LABS: OBS Int Ctl Valid YES; OBS1 POSITIVE (NEGATIVE)
[2022-02-02 15:27] LABS: UPreg QC Valid YES; Urine Pregnancy NEGATIVE (NEGATIVE)
[2022-02-02] MEDS: ondansetron HCL 4 MG/2 ML VIAL IVPUSH (15:35)
[2022-02-02] MEDS: Ketorolac Tromethamine 30 MG/ML VIAL IVPUSH (15:35)
[2022-02-02] MEDS: 0.9 % Sodium Chloride 1,000 ML 999 ML IV (15:35)
[2022-02-02 15:39] LABS: Bacteria Urine None Seen (None Seen); Hyaline Casts Urine 0-2 /LPF (0-2); WBC Urine 0-5 /HPF (0-5)
--- NOTE | 2022-02-02 15:44 | PC.NURSE ---
patient a/ox4 . janpreethila . heart rate regular at 68 beats per minute . breathing even and unlabored . lungs clear throughout . abdomen soft . positive bowel sounds throughout .rebound tenderness noted throughout lower abdomen pelvic region , patient reports pain level 10 out of 10 . skin pink warm and dry . Iv place in right A.C . Medicated with toradal ,zofran and Iv fluids started as ordered . Patient transported to [facility] for images . patient aware of plan of care .
[2022-02-02] MEDS: iohexoL 350 MG/ML 100 ML INFUS..BTL IV (15:52)
[2022-02-02 16:00] VITALS: BP 118/68; PULSE 74; RESP 16; TEMP 36.9; O2SAT 98
== END 2022-02-02 17:29 | disposition home or self-care (01) ==
PROVIDERS: Nurse Practitioner Family; Emergency Provider Emergency Medicine; PCP Internal Medicine
DX: K52.9 Noninfective gastroenteritis and colitis, unspecified (principal); R10.32 Left lower quadrant pain; Z79.899 Other long term (current) drug therapy
CPT/HCPCS: 36415; 74177; 80048; 80076; 81001; 81025; 82272; 83690; 85027; 96374; 96375; 99284; J1885; J2405; Q9967

== ENCOUNTER → 2022-02-25 13:28 | Outpatient (BNVA) | payer MEDICAID, SELFPAY | PROVIDERS: PCP Internal Medicine; Visit Provider Nurse Practitioner | DX: K57.32 Diverticulitis of large intestine without perforation or abscess without bleeding (principal) | CPT/HCPCS: 99212 ==

== ENCOUNTER 2022-04-11 10:46 | Outpatient (REF) | payer MEDICAID, SELFPAY ==
--- NOTE | ~2022-04-11 | US_ITS ---
EXAMINATION: US PELVIS CLINICAL INFORMATION: Pelvic and perineal pain. COMPARISON: None. TECHNIQUE: Ultrasound of the pelvis is performed using both transabdominal and transvaginal transducers along with Doppler. Transvaginal imaging is performed due to inadequate visualization transabdominally. FINDINGS: UTERUS: The uterus is anteverted and measures 10.8 x 3.5 x 4.5 cm for a volume of 89 mL. The double wall endometrial thickness is 0.6 mm. The uterus is smooth in contour and has normal myometrial echogenicity. 2 uterine fibroids are present on the right one closer to the fundus measuring 1.5 x 1.3 x 1.4 cm and one in the lower uterine segment measuring 1.2 x 0.9 x 1.0 cm. ADNEXA: Both ovaries are visualized. There is normal color flow to the adnexa. There is no ovarian torsion. There is no pelvic ascites or fluid collection. Right ovary measures 6.2 x 4.4 x 6.0 cm for a volume of 86 mL which includes a 4.8 x 3.8 x 3.7 cm simple ovarian cyst. Left ovary measures 2.5 x 1.4 x 3.3 cm for a volume of 6.1 mL. No free fluid present in the cul-de-sac. US/US pelvic complete IMPRESSION: 1. Two small uterine fibroids. 2. Benign simple right ovarian cyst needs no further follow up.
== END 2022-04-11 10:47 | disposition home or self-care (01) ==
LOC: HO.US 10:46
PROVIDERS: PCP Internal Medicine; Visit Provider Internal Medicine
DX: R10.2 Pelvic and perineal pain (principal)
CPT/HCPCS: 76856

== ENCOUNTER 2022-04-23 10:41 | Outpatient (REF) | payer MEDICAID, SELFPAY ==
[2022-04-23 13:38] LABS: Alanine Aminotransferase 8 U/L (0-31); Albumin Level 4.2 g/dL (3.5-5.0); Alkaline Phosphatase 98 U/L (39-117); Anion Gap 13 (12-20); Aspartate Amino Transferase 8 U/L (5-31); Bilirubin Total 0.2 mg/dL (0.0-1.0); Blood Urea Nitrogen 6 mg/dL (9-16); Calcium 9.5 mg/dL (8.4-10.2); Carbon Dioxide 27 mmol/L (22-29); Chloride 103 mmol/L (96-108); Estimated Glomerular Filt Rate > 60; Glucose Random 96 mg/dL (60-115); Potassium 3.8 mmol/L (3.3-5.1); Sodium 139 mmol/L (135-145)
== END 2022-04-23 10:42 | disposition home or self-care (01) ==
LOC: HO.LAB 10:41
PROVIDERS: PCP Internal Medicine; Visit Provider Nurse Practitioner
DX: R19.7 Diarrhea, unspecified (principal); K62.5 Hemorrhage of anus and rectum; K57.32 Diverticulitis of large intestine without perforation or abscess without bleeding; K64.9 Unspecified hemorrhoids
CPT/HCPCS: 36415; 80053; 86003; 86140; 99212

== ENCOUNTER 2022-12-17 14:50 | Emergency (ER) | payer MEDICAID, SELFPAY ==
--- NOTE | ~2022-12-17 | XR_ITS ---
EXAMINATION: XR CHEST CLINICAL INFORMATION: Cough. COMPARISON: 09/06/2016. TECHNIQUE: 2 views of the chest were obtained. FINDINGS: The cardiomediastinal silhouette is within normal limits and stable. There is no focal lung consolidation or pleural effusion. The bony structures and soft tissues are unremarkable. XR/XR chest 2V IMPRESSION: No active cardiopulmonary disease.
--- NOTE | 2022-12-17 15:08 | ED_ITS ---
HPI - General Adult General Chief complaint: General Medical Stated complaint: Sore Throat Time Seen by Provider: 12/17/22 15:52 Source: patient Mode of arrival: ambulatory Limitations: no limitations History of Present Illness HPI narrative: Patient is a 37 year old assigned female at with a history of colitis presenting to the emergency department today with a sore throat and cough. Patient states that over the last 2 weeks she has had a cough and a sore throat. Patient denies any dizziness, lightheadedness, abdominal pain, nausea, vomiting, fever, chills, blurry vision, double vision, loss of vision, chest pain, difficulty breathing, shortness of breath, back pain, night sweats, pain with urination, increased urinary frequency, increased urinary urgency, blood in her urine or stool, syncope or a near syncopal episode, recent trauma or falls, bowel incontinence, bladder incontinence, bowel retention, bladder retention, or any other complaints at this time. Onset (ago): week(s) (2) Severity: mild Severity scale (1-10): 3 Relieving factors: none Exacerbating factors: none Associated symptoms: cough Treatments prior to arrival: none Related Data Home Medications Medication Instructions Recorded Confirmed albuterol sulfate 90 mcg/actuation 1 inh inhalation Q4-6H PRN 10/19/20 breath activated powder inhaler,sensor amitriptyline 10 mg tablet 10 mg PO BEDTIME 09/25/21 ferrous sulfate 324 mg (65 mg 324 mg PO BID 09/25/21 iron) tablet,delayed release lorazepam 0.5 mg tablet 0.5 mg PO DAILY anxiety 09/25/21 quetiapine 100 mg tablet 100 - 200 mg PO BEDTIME 09/25/21 fluticasone propionate 110 1 puff inhalation BID 04/23/22 mcg/actuation HFA aerosol inhaler (Flovent HFA) omeprazole 20 mg capsule,delayed 20 mg PO DAILY 04/23/22 release risperidone 0.25 mg tablet 0.25 mg PO DAILY 04/23/22 sumatriptan succinate 50 mg tablet 0 mg PO 04/23/22 venlafaxine 150 mg 150 mg PO QAM 04/23/22 capsule,extended release 24 hr Previous Rx's Medication Instructions Recorded hydrocortisone 2.5 % topical cream 1 appl DC BID PRN hemorrhoids #30 10/19/20 with perineal applicator grams (Proctosol HC) peg 3350-electrolytes 236 240 ml PO Q10M 1 day #4,000 mL 02/25/22 gram-22.74 gram-6.74 gram-5.86 gram solution (Golytely) peg 3350-electrolytes 236 240 ml PO Q10M 1 day #4,000 mL 04/23/22 gram-22.74 gram-6.74 gram-5.86 gram solution (Golytely) dicyclomine 20 mg tablet 20 mg PO QID 30 days #120 tabs 06/09/22 Allergies Allergy/AdvReac Type Severity Reaction Status Date / Time SEAFOOD Allergy Unknown Rash Uncoded 12/17/22 15:09 Review of Systems Constitutional: Constitutional: Reports no additional constitutional complaints, Denies chills, Denies fever(s) and Denies night sweats Eyes: Eyes: Reports no additional eye complaints, Denies blurry vision, Denies change in vision, Denies diplopia, Denies eye discharge, Denies loss of vision and Denies eye pain ENT: Denies dizziness and Reports sore throat Cardiovascular: Cardiovascular: Reports no additional cardiovascular complaints, Denies chest pain, Denies lightheadedness, Denies Loss of Consciousness and Denies dyspnea Respiratory: Respiratory: Reports no additional respiratory complaints, Reports cough and Denies dyspnea Gastrointestinal: Gastrointestinal: Reports no additional gastrointestinal complaints, Denies abdominal pain, Denies melena, Denies hematochezia, Denies change in bowel habits and Denies change in stool character Genitourinary: Genitourinary: Denies hematuria, Denies urinary frequency, Denies dysuria, Denies urinary incontinence, Denies urinary hesitancy and Denies urinary urgency Musculoskeletal: Musculoskeletal: Reports no additional musculoskeletal complaints, Denies numbness and Denies tingling Neurologic: Denies dizziness, Denies loss of vision, Denies numbness and Denies tingling Psychiatric: Psychiatric: Reports no additional psychiatric complaints Endocrine: Endocrine: Reports no additional endocrine complaints Hematologic/Lymphatic: Hematologic/Lymphatic: Reports no additional hematologic/lymphatic complaints Allergic/Immunologic: Allergic/Immunologic: Reports no additional allergic/immunologic complaints PMFSH Past Medical History Attestation statement: The following information was validated with the patient. Source: old records reviewed and nursing notes reviewed Surgical History Hx of section Family History Family History Father No problems noted. Mother Absolute anemia Social History Social History Household Members: Spouse and Children Housing: Apartment Alcohol intake: current Alcohol intake frequency: holidays/special occasions only Patient Tobacco Use Status: Never used Tobacco Advance Directives: No Advance Directives Information Provided: No Sexual orientation: Straight/Heterosexual Gender identity: Female Physical Exam ED Vital Signs: Vital Signs - 24 hr 12/17/22 15:09 Temperature 97.8 F Pulse Rate 98 Respiratory Rate 16 Blood Pressure 124/85 Pulse Oximetry 96 Oxygen Delivery Method Room Air BMI result Body Mass Index 41.6 Const General: cooperative, no acute distress, alert and awake Nutritional Appearance: well nourished Orientation/consciousness: patient oriented x3 Limitations: no limitations HENMT Head: Yes normal to inspection and Yes atraumatic Ears: hearing grossly normal bilaterally and external ears normal General nose exam: Normal external nose present, no nasal discharge noted and no epistaxis Face and sinus: Yes normal facial exam, No abrasion and No laceration Mouth: Normal oral and palatal mucosa present, no drooling and no muffled voice Eyes General: appearance normal, both eyes and all related structures Periorbital: periorbital findings normal Eyelids: Yes eyelids normal Conjunctivae: conjunctivae normal Pupils: Equal, round and reactive pupils present EOM: EOMs intact bilaterally Neck Neck: Yes normal visual inspection, Yes full ROM and Yes no lymphadenopathy Chest Chest palpation & inspection: normal inspection of the chest Resp Effort & Inspection: normal respiratory effort and able to speak in complete sentences Auscultation: clear to auscultation bilaterally GI Inspection: Yes normal to inspection Neuro General: patient oriented x3 and moves all extremities Cranial nerves: Yes Equal, round and reactive pupils present Cognition (Neuro): normal cognition Motor exam (neuro): 5/5 motor strength present throughout Sensory Exam: Normal double simultaneous stimulation for sensation Coordination: [id number] test normal Extrem General: Yes normal to inspection, Yes full ROM and Yes capillary refill normal Psych Appearance: grossly normal Mental Status: mental status grossly normal Affect: normal affect Attitude: cooperative Thought process: Normal thought process present Thought content: Normal thought content present Insight: Good insight present (Psych) Course Course Course Narrative: RME:?37 yo F presents with sore throat and cough x2 weeks. Able to swallow with discomfort. Fever at home, now resolved. No N/V or abd pain. Muffled voice. Lungs CTA b/l. Erythema to posterior pharynx. B/l tonsillar erythema and exudates. Uvula midline. Speaking in complete sentences. Controlling secretions. flu/covid/rsv/ strep and CXR ordered. Full HPI, ROS and PE to be performed by the primary ED provider. Medications Administered Discontinued Medications Generic Name Dose Route Start Last Admin Trade Name Frecris PRN Reason Stop Dose Admin Dexamethasone Sodium Phosphate 10 mg 12/17/22 17:08 12/17/22 17:28 Dexamethasone Sod Phosphate 10 Mg/Ml Vial PO 12/17/22 17:09 10 mg ONCE ONE Administration Medical Decision Making Medical Decision Making [facility] Narrative: Patient is a 37 year old assigned female at with a history of colitis presenting to the emergency department today with a sore throat and a cough. Patient's physical exam was unremarkable. Patient's RSV/Influenza/COVID and strep swabs were negative. Patient's chest x-ray showed no acute process. I explained my physical exam findings as well as all test results to the patient. I answered all questions asked by the patient. Patient received PO Decadron which she stated helped her symptoms significantly. I stressed the importance of the patient taking her medication as prescribed. I stressed the importance of the patient following up with her primary care provider. I stressed the importance of the patient returning to the emergency department immediately if her symptoms were to worsen or if she were to develop any dizziness, shortness of breath, difficulty breathing, chest pain, blurry vision, loss of vision, nausea, vomiting, abdominal pain, fever, chills, back pain, or any other complaints. Patient verbalized agreement and understanding with this treatment plan and discharge. Differential Diagnosis Differential Diagnoses: The differential diagnosis associated with the presentation includes Strep pharyngitis COVID-19 Influenza RSV Pharyngitis URI Lab Data [facility] Lab Attestation statement: I reviewed the patient's lab results. My interpretation of these studies and their corresponding values is that they are grossly normal. Labs: Lab Results 12/17/22 Range/Units 15:57 Influenza Type A (PCR) NEGATIVE (Negative) Influenza Type B (PCR) NEGATIVE (Negative) RSV RNA Qual (PCR) NEGATIVE (Negative) SARS-CoV-2 RNA (RT-PCR) NEGATIVE (Negative) S. pyogenes GrpA SHE Negative (Negative) Independent Interpretation I performed an independent interpretation of an: Plain X-Ray Interpretation: My interpretation is in agreement with the radiologist's impression of this imaging study. EXAMINATION: XR CHEST CLINICAL INFORMATION: Cough. COMPARISON: 09/06/2016. TECHNIQUE: 2 views of the chest were obtained. FINDINGS: The cardiomediastinal silhouette is within normal limits and stable. There is no focal lung consolidation or pleural effusion. The bony structures and soft tissues are unremarkable. XR/XR chest 2V IMPRESSION: No active cardiopulmonary disease. Dictated By: Vasiliy Estrada Signed By: Electronically signed by Vasiliy Estrada 12/17/22 1346 Radiology Impression Discussion of test interpretation with radiology: I have reviewed the radiologist's reading. Discharge Plan Discharge Clinical Impression: Pharyngitis Patient Disposition: Home, Self-Care Instructions: Pharyngitis (ED) Additional Instructions: Follow up with your primary care provider. Return to the emergency department immediately if your symptoms worsen or if you develop any dizziness, shortness of breath, difficulty breathing, chest pain, blurry vision, loss of vision, nausea, vomiting, abdominal pain, fever, chills, back pain, or any other complaints. Prescriptions: No Action dicyclomine 20 mg tablet 20 mg PO QID 30 Days Qty: 120 3RF albuterol sulfate 90 mcg/actuation aero powdr breath act w/sensor 1 inh inhalation Q4-6H PRN hydrocortisone [Proctosol HC] 2.5 % cream with perineal applicator 1 appl DC BID PRN (Reason: hemorrhoids) Qty: 30 6RF peg 3350-electrolytes [Golytely] 236-22.74-6.74 -5.86 gram recon soln 240 ml PO Q10M 1 Days Qty: 4000 0RF Rx Instructions: until fecal effluent is clear; do not exceed a total volume of 2,000 mL risperidone 0.25 mg tablet 0.25 mg PO DAILY sumatriptan succinate 50 mg tablet 0 mg PO omeprazole 20 mg capsule,delayed release(DR/EC) 20 mg PO DAILY fluticasone propionate [Flovent HFA] 110 mcg/actuation HFA aerosol inhaler 1 puff inhalation BID venlafaxine 150 mg capsule,extended release 24hr 150 mg PO QAM peg 3350-electrolytes [Golytely] 236-22.74-6.74 -5.86 gram recon soln 240 ml PO Q10M 1 Days Qty: 4000 0RF Rx Instructions: until fecal effluent is clear; do not exceed a total volume of 2,000 mL amitriptyline 10 mg tablet 10 mg PO BEDTIME lorazepam 0.5 mg tablet 0.5 mg PO DAILY quetiapine 100 mg tablet 100 - 200 mg PO BEDTIME ferrous sulfate 324 mg (65 mg iron) tablet,delayed release (DR/EC) 324 mg PO BID Referrals: Radha Cherry MD [Primary Care Provider] - Stand Alone Forms: Work/School Release Interventions: ED Discharge Assessment Last Done: 12/17/22 17:31 Discharge Date/Time: 12/17/22 17:31 Print Language: Persian
[2022-12-17 15:09] VITALS: BP 124/85; PULSE 98; RESP 16; TEMP 36.6; O2SAT 96; BMI 41.6
[2022-12-17 16:27] LABS: IDNOW Serial# 08D9AD1C; Strep A Nucleic Acid Negative (Negative)
[2022-12-17 16:53] LABS: Influenza A PCR NEGATIVE (Negative); Influenza B PCR NEGATIVE (Negative); Resp Syncy Virus RNA Qual PCR NEGATIVE (Negative); SARS COV2 PCR INHOUSE NEGATIVE (Negative)
[2022-12-17] MEDS: dexAMETHasone sod phosphate 10 MG/ML VIAL PO (17:28)
== END 2022-12-17 17:31 | disposition home or self-care (01) ==
PROVIDERS: Physician Assistant Medical; Emergency Provider Emergency Medicine; PCP Internal Medicine
DX: J02.8 Acute pharyngitis due to other specified organisms (principal); R05.9 Cough, unspecified; Z20.822 Contact with and (suspected) exposure to COVID-19; Z20.828 Contact with and (suspected) exposure to other viral communicable diseases
CPT/HCPCS: 0241U; 71046; 87651; 99282; 99283; J1100

== ENCOUNTER 2024-07-07 09:40 | Emergency (ER) | payer MEDICAID, SELFPAY ==
--- NOTE | ~2024-07-07 | XR_ITS ---
EXAMINATION: XR LUMBOSACRAL SPINE CLINICAL INFORMATION: FALL COMPARISON: None available. TECHNIQUE: Three views of the lumbosacral spine. FINDINGS: There is no cortical disruption or malalignment. No lytic or blastic lesions. XR/XR lumbar spine 2-3V IMPRESSION: No acute fracture or listhesis. Negative exam. Electronically signed by: Anjum Peng MD 07/07/2024 10:20 AM EDT
[2024-07-07 09:59] VITALS: BP 125/69; PULSE 78; RESP 16; TEMP 36.2; O2SAT 98; BMI 43.1
--- NOTE | 2024-07-07 10:43 | ED_ITS ---
HPI - General Adult General Chief complaint: Back Pain/Injury Stated complaint: back and wrist pain Time Seen by Provider: 07/07/24 10:39 Source: patient, RN notes reviewed and old records reviewed Mode of arrival: ambulatory Limitations: no limitations History of Present Illness ED Provider: Greyson HPI narrative: Patient is a 38-year-old female presenting to the emergency department with complaint of left lower back pain as well as right hand pain after accidentally falling out of bed 2 days ago. Patient reports that she recently got a new bed which is smaller than her previous bed. She denies head strike or loss of consciousness. Denies radiation of pain to lower extremities. Denies any new weakness, numbness, tingling to extremities. Denies saddle anesthesia or bowel or bladder incontinence. Has use Tylenol and ibuprofen with little relief. MD complaint: back pain Onset (ago): day(s) Related Data Home Medications ?Medication ?Instructions ?Recorded ?Confirmed albuterol sulfate 90 mcg/actuation 1 inh inhalation Q4-6H PRN 10/19/20 breath activated powder inhaler,sensor amitriptyline 10 mg tablet 10 mg PO BEDTIME 09/25/21 ferrous sulfate 324 mg (65 mg 324 mg PO BID 09/25/21 iron) tablet,delayed release lorazepam 0.5 mg tablet 0.5 mg PO DAILY anxiety 09/25/21 quetiapine 100 mg tablet 100 - 200 mg PO BEDTIME 09/25/21 fluticasone propionate 110 1 puff inhalation BID 04/23/22 mcg/actuation HFA aerosol inhaler (Flovent HFA) omeprazole 20 mg capsule,delayed 20 mg PO DAILY 04/23/22 release risperidone 0.25 mg tablet 0.25 mg PO DAILY 04/23/22 sumatriptan succinate 50 mg tablet 0 mg PO 04/23/22 venlafaxine 150 mg 150 mg PO QAM 04/23/22 capsule,extended release 24 hr Previous Rx's ?Medication ?Instructions ?Recorded hydrocortisone 2.5 % topical cream 1 appl DC BID PRN hemorrhoids #30 10/19/20 with perineal applicator grams (Proctosol HC) peg 3350-electrolytes 236 240 ml PO Q10M 1 day #4,000 mL 02/25/22 gram-22.74 gram-6.74 gram-5.86 gram solution (Golytely) peg 3350-electrolytes 236 240 ml PO Q10M 1 day #4,000 mL 04/23/22 gram-22.74 gram-6.74 gram-5.86 gram solution (Golytely) dicyclomine 20 mg tablet 20 mg PO QID 30 days #120 tabs 06/09/22 cyclobenzaprine 10 mg tablet 10 mg PO TID PRN muscle spasm #14 07/07/24 tabs lidocaine 5 % topical patch 1 patch topical DAILY #15 ea 07/07/24 naproxen 500 mg tablet 500 mg PO BID #30 tabs 07/07/24 Allergies Allergy/AdvReac Type Severity Reaction Status Date / Time SEAFOOD Allergy Unknown Rash Uncoded 07/07/24 10:00 Review of Systems Review of Systems: As per hPI Yes all other systems are reviewed and are negative Constitutional: Constitutional: Reports as per HPI PMFSH Past Medical History Surgical History Hx of section Family History Family History Father No problems noted. Mother Absolute anemia Social History Social History Household Members: Spouse and Children Housing: Apartment Alcohol intake: current Alcohol intake frequency: holidays/special occasions only Patient Tobacco Use Status: Never used Tobacco Sexual orientation: Straight/Heterosexual Gender identity: Female Physical Exam ED Vital Signs: Vital Signs - 24 hr 07/07/24 09:59 Temperature 97.2 F Pulse Rate 78 Respiratory Rate 16 Blood Pressure 125/69 Pulse Oximetry 98 Oxygen Delivery Method Room Air BMI result Body Mass Index 43.1 Vital signs have been reviewed and appear to be correct. Blood pressure normal. Heart rate normal. Respiratory rate normal. Temperature normal. Oxygen saturation normal. Const General: cooperative and no acute distress Orientation/consciousness: oriented to person, oriented to place, oriented to time and patient oriented x3 Limitations: no limitations HENMT Head: Yes normocephalic and Yes atraumatic Ears: external ears normal General nose exam: Normal external nose present Face and sinus: Yes face symmetric Mouth: oropharynx normal and moist mucous membranes Throat: Yes uvula midline Eyes Pupils: Equal, round and reactive pupils present Neck Neck: Yes normal visual inspection and Yes supple Resp Effort & Inspection: normal respiratory effort and able to speak in complete sentences Auscultation: clear to auscultation bilaterally Cardio Rate: regular rate Rhythm: regular rhythm Heart sounds: S1 normal heart sound present and S2 normal heart sound present GI Palpation (GI): Soft to palpation and nontender Auscultation: normoactive bowel sounds General: Yes no CVA tenderness Back/Spine/Pelvis Back: no CVA tenderness Thoracic/Lumbar Spine: thoracic and lumbar spine normal to inspection, thoraco- lumbar ROM normal, straight leg raise negative bilaterally, paraspinal muscle tenderness on the left in the lower lumbar, No thoracic spinal tenderness and No lumbar spinal tenderness Sacroiliac joints: on the left tender to palpation Skin General skin exam: elasticity normal and turgor normal Neuro General: oriented to person, oriented to place, oriented to time, patient oriented x3, gait normal, tone normal, moves all extremities, Normal light touch and pain sensation, no focal motor deficits, CN's II-XI intact bilaterally and deep tendon reflexes 2+ bilaterally Cranial nerves: Yes Equal, round and reactive pupils present Cognition (Neuro): normal cognition Motor exam (neuro): 5/5 motor strength present throughout, Normal motor muscle tone present throughout and Motor abnormalities not present Extrem General: Yes full ROM, Yes no pedal edema and Yes no calf tenderness Right upper extremity: wrist Details: normal to inspection, normal ROM and radial pulse present; no tenderness and no swelling and Extremity exam: right hand Details: normal to inspection, normal capillary refill, neuromotor exam normal, neurosensory exam normal, vascular exam Details: radial pulse present and normal capillary refill and normal ROM of fingers; no tenderness and no ecchymosis Psych Mental Status: mental status grossly normal Affect: normal affect Thought process: Normal thought process present Medical Decision Making Medical Decision Making MDM Narrative: Patient is a 38-year-old female presenting to the emergency department with complaint of left lower back pain as well as right hand pain after accidentally falling out of bed 2 days ago. On exam patient is awake, A+Ox3, VS WNL, afebrile, normal neurological exam without focal deficits, physical exam findings as above. Given reported symptoms and physical exam findings, initial differential includes but is not limited to right hand contusion, strain, lumbar strain, degenerative disc disease, disc herniation, spinal stenosis, spondylosis. Less likely vertebral fracture. Do not suspect malignancy/mass, SEA, cauda equina/cord compression. X-ray notable for no acute fracture or subluxation. My interpretation is in agreement with the radiologist's interpretation. No bony tenderness to right hand or wrist, full range of motion, neurovascularly intact, do not suspect fracture. Will discharge patient home with naproxen, lidocaine patches, Flexeril. Discussed with patient that if symptoms do not improve she may need to follow up with PCP for physical therapy referral. Return precautions discussed at bedside. Patient verbalized understanding of and agreement with plan. Differential Diagnosis Differential Diagnoses: The differential diagnosis associated with the presentation includes As per [facility] Admission/Observation Consideration of admission/observation: Escalation of care including admission/observation considered Patient would have been admitted to the hospital had their work up had any findings where hospital admission was appropriate and their clinical presentation warranted hospital admission. Independent Interpretation I performed an independent interpretation of an: Plain X-Ray Interpretation: No acute fracture or subluxation to lumbar spine Radiology Impression Discussion of test interpretation with radiology: I have reviewed the radiologist's reading. Radiologist Impression: XR LUMBOSACRAL SPINE CLINICAL INFORMATION: FALL COMPARISON: None available. TECHNIQUE: Three views of the lumbosacral spine. FINDINGS: There is no cortical disruption or malalignment. No lytic or blastic lesions. XR/XR lumbar spine 2-3V IMPRESSION: No acute fracture or listhesis. Negative exam. External Record Review External record reviewed: Inpatient record, Office record and Outpatient record Prescription Management I considered prescription management with: Pain Medication and Other Discharge Plan Discharge Clinical Impression: Low back pain Patient Disposition: Home, Self-Care Instructions: Acute Low Back Pain (ED) Additional Instructions: You were evaluated in the emergency department today for back pain. Your evaluation did not show signs of medical conditions requiring emergent intervention at this time. You have been prescribed a muscle relaxer called Flexeril (cyclobenzaprine) which you may take every 8 hours as needed for spasms. Do not drive, drink alcohol, or operate heavy machinery while taking this as it can cause drowsiness. You have been prescribed 5% topical lidocaine patches which you can wear for up to 12 hours in a 24 hour period. Do not apply heat directly over the patches. You have been prescribed naproxen for pain and to decrease inflammation. Take all medications as prescribed. Please schedule an appointment for follow-up with your primary care physician this week for further evaluation of your symptoms. Return to the emergency department if you experience worsening back pain, difficulty walking, fevers, numbness, tingling, incontinence, groin numbness or tingling, or any other concerning symptoms. Prescriptions: New naproxen 500 mg tablet 500 mg PO BID Qty: 30 0RF cyclobenzaprine 10 mg tablet 10 mg PO TID PRN (Reason: muscle spasm) Qty: 14 0RF lidocaine 5 % adhesive patch,medicated 1 patch topical DAILY Qty: 15 0RF Rx Instructions: leave on most painful area for up to 12 hrs No Action dicyclomine 20 mg tablet 20 mg PO QID 30 Days Qty: 120 3RF albuterol sulfate 90 mcg/actuation aero powdr breath act w/sensor 1 inh inhalation Q4-6H PRN hydrocortisone [Proctosol HC] 2.5 % cream with perineal applicator 1 appl DC BID PRN (Reason: hemorrhoids) Qty: 30 6RF peg 3350-electrolytes [Golytely] 236-22.74-6.74 -5.86 gram recon soln 240 ml PO Q10M 1 Days Qty: 4000 0RF Rx Instructions: until fecal effluent is clear; do not exceed a total volume of 2,000 mL risperidone 0.25 mg tablet 0.25 mg PO DAILY sumatriptan succinate 50 mg tablet 0 mg PO omeprazole 20 mg capsule,delayed release(DR/EC) 20 mg PO DAILY fluticasone propionate [Flovent HFA] 110 mcg/actuation HFA aerosol inhaler 1 puff inhalation BID venlafaxine 150 mg capsule,extended release 24hr 150 mg PO QAM peg 3350-electrolytes [Golytely] 236-22.74-6.74 -5.86 gram recon soln 240 ml PO Q10M 1 Days Qty: 4000 0RF Rx Instructions: until fecal effluent is clear; do not exceed a total volume of 2,000 mL amitriptyline 10 mg tablet 10 mg PO BEDTIME lorazepam 0.5 mg tablet 0.5 mg PO DAILY quetiapine 100 mg tablet 100 - 200 mg PO BEDTIME ferrous sulfate 324 mg (65 mg iron) tablet,delayed release (DR/EC) 324 mg PO BID Stand Alone Forms: Work/School Release Print Language: Kuwaiti
--- OUTSIDE RECORDS SUMMARY | 2024-07-07 13:07 | XMS_ITS | Encounter Summary ---
Author Organization [facility] Address [address] [place] [address] 7[address] [place] [address] Care Team Providers Care Seam Stay Stitcher Name Role Phone Radha Cherry MD Primary Care Provider + Encounter Details Date Type Department Care Team (Late st Contact Info) Description 07/07/2024 Orders Only [facility] External Provider, [facility] Social History Tobacco Use Types Packs/Day Years Used Date Smoking Tobacco: Never Smokeless Tobacco: Never Alcohol Use Standard Drinks/Week Comments Never 0 (1 standard drink = 0.6 oz pur e alcohol) Comments Unknown Sex and Gender Information Value Date Recorded Sex Assigned at Female 01/20/2022 10:20 AM EDT Legal Sex Female 10:20 AM EDT Gender Identity Female 01/20/2022 10:20 AM EDT Sexual Orientation Choose not to disclose 2021 10:20 AM EDT documented as of this encounter Plan of Treatment Not on file documented as of this encounter Procedures Procedure Name Priority Date/Time Associated Diagnosis Comments XR LUMBAR SPINE 2-3 VIEWS Routine 07/07/2024 10:00 AM EDT documented in this encounter Results * XR Lumbar Spine 2-3 Views (07/07/2024 10:00 AM EDT) Anatomical Region Laterality Modality Spine, L-spine Radiographic Court ging 07/07/2024 10:0 0 AM EDT Narrative 07/07/2024 10:23 AM EDT ? [facility] ?[address] ?[place] [address] ?XRay Report ? Signed ? Patient: Blank,Peri ?MR#: [id number] ?? 030 ? : 1985 ?Acct:[id number] ? Age/Sex: 38 / F ?ADM Date: 07/07/24 ? Loc: HO.ED ? Attending Dr: ? Ordering Physician: Generic ED Physician ?? Date of Service: 07/07/24 ?? Procedure(s): XR lumbar spine 2-3V ?? Accession Number(s): [id number] ? cc: Radha Cherry MD; Generic ED Physician ? EXAMINATION: ?? XR LUMBOSACRAL SPINE ? CLINICAL INFORMATION: ?? FALL ? COMPARISON: ?? None available. ? TECHNIQUE: ?? Three views of the lumbosacral spine. ? FINDINGS: ?? There is no cortical disruption or malalignment. ?? No lytic or blastic lesions. ? XR/XR lumbar spine 2-3V ?? IMPRESSION: ?? No acute fracture or listhesis. Negative exam. ? Electronically signed by: ??Anjum Peng MD ??07/07/2024 10:20 AM ?? EDT RP ? Dictated By: ?Anjum Tinsley MD ? Signed By: ?<Electronically signed by Anjum Chao MD in OV> ? 07/07/24 1020 ? DD/ 1000 ? TD/TT: 07/07/24 1010 ? Medical Cash Poster: ? Procedure Note Rigo Woodall - 07/07/[address] [address] XRay Report Signed Patient: Peri BlankMR#: [id number] 030 : 1985Acct:[id number] Age/Sex: 38 / FADM Date: 07/07/24 Loc: HO.ED Attending Dr: Ordering Physician: Generic ED Physician Date of Service: 07/07/24 Procedure(s): XR lumbar spine 2-3V Accession Number(s): [id number] cc: Radha Cherry MD; Generic ED Physician EXAMINATION: XR LUMBOSACRAL SPINE CLINICAL INFORMATION: FALL COMPARISON: None available. TECHNIQUE: Three views of the lumbosacral spine. FINDINGS: There is no cortical disruption or malalignment. No lytic or blastic lesions. XR/XR lumbar spine 2-3V IMPRESSION: No acute fracture or listhesis. Negative exam. Electronically signed by: Anjum Peng MD 07/07/2024 10:20 AM EDT RP Dictated By: Anjum Tinsley MD Signed By: <Electronically signed by Anjum Chao MDin OV> 07/07/24 1020 DD/ 1000 TD/TT: 07/07/24 1010 Medical Cash Poster: [facility] External Provider IMG XR PROCEDURES Final Result documented in this encounter Visit Diagnoses Not on filedocumented in this encounter Care Teams Seam Stay Stitcher Relationship Specialty Start Date End Date Radha Cherry MD [address] [place] [id number] PCP - General Family Medicine 07/23/18 documented as of this encounter
--- OUTSIDE RECORDS SUMMARY | 2024-07-07 13:07 | XMS_ITS | Clinical Summary ---
Author Organization [employer] Address [address] [facility] 7t [place] [address] Care Team Providers Care Veterinary Microbiologist Name Role Phone Radha Cherry MD Primary Care Provider + Allergies Active Allergy Reactions Criticality Noted Date Comments Fish Allergy 02/11/2022 Medications amitriptyline (Elavil) 10 MG tablet Take 1 tablet by mouth in the morning. 2 Active aspirin-acetamin ophen-caffeine (Excedrin Migraine) 250-250-65 MG tablet Take 1 tablet by mouth. 2 Active fluconazole (Diflucan) 150 MG tablet Take 1 tablet by mouth in the morning. 2 Active hydrocortisone 2.5 % cream Apply topically every 12 (twelve) hours. 0 Active hydrOXYzine HCl (Atarax) 25 MG tablet Take 1 tablet by mouth in the morning, at noon, and at bedtime. Active LORazepam (Ativan) 0.5 MG tablet Take 1 tablet by mouth at bedtime. Active naproxen (Naprosyn) 500 MG tablet Take 1 tablet by mouth every 12 (twelve) hours. 9 Active omeprazole (PriLOSEC) [address] capsule Take 1 capsule by mouth in the morning. 2 Active QUEtiapine (SEROquel) 100 MG tablet take 1-2 tablet by oral route qhs Active triamcinolone (Kenalog) 0.5 % cream Apply topically at bed time. 0 Active SUMAtriptan (Imitrex) 50 MG tabletIndication s:Chronic migraine without aura without status migrainosus, not intractable TAKE 1 TABLET BY MOUTH NEEDED for migraine. MAY REPEAT AFTER 2 HOUR NEEDED . not to exceed 200mg IN 24 HOUR 10 tablet 5 3 Active ferrous sulfate 325 (65 Fe) MG EC tabletIndication s:Iron deficiency anemia due to chronic blood loss TAKE 1 TABLET BY MOUTH ONCE DAILY WITH BREAKFAST 90 tablet 3 Active albuterol (Ventolin HFA) 108 (90 Base) MCG/ACT inhalerIndicatio ns:Uncomplicated asthma, unspecified asthma severity, unspecified whether persistent INHALE TWO PUFFS BY MOUTH EVERY 4 TO 6 HOURS NEEDED 18 g 3 3 Active Mometasone Furoate (Asmanex HFA) 100 MCG/ACT aerosol INHALE 1 PUFF BY MOUTH two (2) times a day 13 g 3 3 Active Active Problems Problem Noted Date Diagnosed Date Intramural leiomyoma of uterus 06/06/2022 Assessment & Plan (06/06/2022 1:59 PM EDT): Start ibuprofen 600mg BID the day prior to menstrual bleeding x4-5 days and FU with me in 4 month Continue to FU with MANAGER GOVERNMENT. Colitis 02/11/2022 Dysuria 02/11/2022 Incontinence of feces with fecal urgency 022 Cyst of ovary 07/13/2018 Rectal hemorrhage 07/13/2018 Gastroesophageal reflux disease without esophagi tis 02/02/2017 Iron deficiency anemia 02/02/2017 Assessment & Plan (06/06/2022 1:58 PM EDT): secondary to uterine fibroids start using iron supplementation once per day as opposed to PRN increase fluid intake during menstruation FU with me in 3-4 months Nausea 02/02/2017 Vitamin D deficiency 02/02/2017 Anemia 01/20/2017 Asthma 01/20/2017 Eczema of external auditory canal 01/20/2017 Mood disorder 01/20/2017 Pain in female pelvis 01/20/2017 Encounters Date Type Department Care Team Description 07/07/2024 Orders Only [facility] External Provider, [facility] 06/22/2024 Population Health Risk Score [facility] ([facility]) Department [address] [place] [id number] Provider, Population Health Generic 06/16/2024 Telephone [facility] [address] [place] [address] Radha Cherry MD No Show 06/07/2024 Patient Outreach [facility] [address] [place] [address] Radha Cherry MD Pre-visit Planning ((Unable to reach for PVP screening and or LVM)) from Last 3 Months Immunizations Name Administration Dates Next Due Influenza injectable quadriv alent IIV4 with preservative 12/17/2015 Influenza injectable quadrivalent preservative f ree 01/06/2022 Moderna Covid-19 Vaccine 12+ 08/27/2020,07/27/19 21 Pfizer Covid-19 Vaccine 12+ Bivalent 01/06/2022 Social History Tobacco Use Types Packs/Day Years Used Date Smoking Tobacco: Never Smokeless Tobacco: Never Tobacco Cessation:Counseling Given: Not Answered Alcohol Use Standard Drinks/Week Comments Never 0 (1 standard drink = 0.6 oz pur e alcohol) Comments Unknown Sex and Gender Information Value Date Recorded Sex Assigned at Female 01/20/2022 10:20 AM EDT Legal Sex Female 10:20 AM EDT Gender Identity Female 01/20/2022 10:20 AM EDT Sexual Orientation Choose not to disclose 2021 10:20 AM EDT Last Filed Vital Signs Vital Sign Reading Time Taken Comments Blood Pressure 110/78 03/05/2022 11:21 AM EST Pulse 78 03/05/2022 11:21 AM EST Temperature 36.2 ??C (97.2 ??F) 03/05/2022 11:[address] Respiratory Rate 16 03/05/2022 11:21 AM EST Oxygen Saturation - - Inhaled Oxygen Concentration - - Weight 95 kg (209 lb 6.4 oz) 03/05/2022 11:21 AM EST Height 151.8 cm (4' 11.75 ) 01/20/2022 10:22 AM EDT Body Mass Index 41.24 01/20/2022 10:22 AM EDT Plan of Treatment Health Maintenance Due Date Last Done Comments Depression Screening 1986 HIV Screening 1986 SDOH Screening 1986 Alcohol/Substance Use Screening 1998 Family Planning (PISQ) 2001 Hepatitis C Screening 2004 Hepatitis B Vaccines (1 of 3 - 19+ 3-dose series) 2005 Pneumococcal Vaccine: Pediatrics (0 to 5 Years) and At-Risk Patients (6 to 49) Years) (1 of 2 - PCV) 2005 Tobacco Screening 03/05/2023 03/05/2022 COVID-19 Vaccine (4 - 2023-2 5 season) 2023 01/06/2022, 08/27/2020, 07/26/2020 Influenza Vaccine (#1) 2023 , 12/17/2015 DTaP/Tdap/Td Vaccines (3 - T d or Tdap) 06/15/2024 06/15/2014, 06/08/2008 Cervical Cancer Screening 03/11/2025 HPV/Cotest 03/11/2025 Pap Smear 03/11/2025 03/11/2022, 03/05/2022 Zoster Vaccines (1 of 2) 2036 RSV Patients and Patients Aged 60 years or older (1 - 1-dose 75+ series) 2061 HIB Vaccines Aged Out No longer eligi ble based on patient's age to complete this topic HPV Vaccines Aged Out No longer eligi ble based on patient's age to complete this topic Hepatitis A Vaccines Aged Out No long er eligible based on patient's age to complete this topic IPV Vaccines Aged Out No longer eligi ble based on patient's age to complete this topic Meningococcal Vaccine Aged Out No olga mikala eligible based on patient's age to complete this topic RSV under 20 months Aged Out No longe r eligible based on patient's age to complete this topic Rotavirus Vaccines Aged Out No longer eligible based on patient's age to complete this topic Procedures Procedure Name Priority Date/Time Associated Diagnosis Comments XR LUMBAR SPINE 2-3 VIEWS Routine 07/07/2024 10:00 AM EDT PAP SMEAR Routine 03/11/2022 12:00 AM EST from Last 3 Months or Most Recently Relevant to Health Maintenance Results * XR Lumbar Spine 2-3 Views (07/07/2024 10:00 AM EDT) Anatomical Region Laterality Modality Spine, L-spine Radiographic Court ging 07/07/2024 10:0 0 AM EDT Narrative 07/07/2024 10:23 AM EDT ? [facility] ?[address] ?[place] [address] ?XRay Report ? Signed ? Patient: Blank,Peri ?MR#: [id number] ?? 030 ? : 1985 ?Acct:[id number] ? Age/Sex: 38 / F ?ADM Date: 07/07/24 ? Loc: HO.ED ? Attending Dr: ? Ordering Physician: Generic ED Physician ?? Date of Service: 07/07/24 ?? Procedure(s): XR lumbar spine 2-3V ?? Accession Number(s): [id number] ? cc: Radha Cherry MD; Generic ED [...] DD/ 1000 ? TD/TT: 07/07/24 1010 ? Assistant Media Planner: ? Procedure Note Rigo Woodall - 07/07/[address] [address] XRay Report Signed Patient: Peri BlankMR#: [id number] 030 : 1985Acct:[id number] Age/Sex: 38 / FADM Date: 07/07/24 Loc: HO.ED Attending Dr: Ordering Physician: Robyn ED Physician Date of Service: 07/07/24 Procedure(s): XR lumbar spine 2-3V Accession Number(s): [id number] cc: Radha Cherry MD; [facility] ED Physician EXAMINATION: XR LUMBOSACRAL SPINE CLINICAL [...] 07/07/24 1020 DD/ 1000 TD/TT: 07/07/24 1010 Assistant Media Planner: [facility] External Provider IMG XR PROCEDURES Final Result * Pap Smear (03/11/2022 12:00 AM EST) Swab Radha Cherry MD LAB CYTOLOGY ORDERABLES Final Result [facility] [address], [place] [address] from Last 3 Months or Most Recently Relevant to Health Maintenance Insurance [facility] C3 Care Teams Veterinary Microbiologist Relationship Specialty Start Date End Date Radha Cherry MD [address] [place] [phone] PCP - General Family Medicine 07/23/18
--- OUTSIDE RECORDS SUMMARY | 2024-07-07 13:07 | XMS_ITS | Clinical Summary ---
Author Organization [facility] Address [address] [place] [address] Care Team Providers Care Solderer Production Line Name Role Phone Unavailable Primary Care Provider Unavailabl e Source Comments PLEASE NOTE, if this patient is a minor, it may be UNLAWFUL to discuss sensitive information that is contained in these records (such as FAMILY PLANNING, MENTAL HEALTH or SUBSTANCE ABUSE) with the minor patient's parent or other person without the patient's specific authorization.[facility] Encounters Date Type Department Care Team Description 05/20/2024 1:00 PM EST Office Visit [facility] [address] [place] [address] Jairon Manzano RDH Caries of enamel (incipient) (Primary Dx); Caries from Last 3 Months Social History Tobacco Use Types Packs/Day Years Used Date Smoking Tobacco: Never Assessed Comments Unknown Sex and Gender Information Value Date Recorded Sex Assigned at Not on file Legal Sex Female 11:36 AM PDT Gender Identity Not on file Sexual Orientation Not on file Plan of Treatment Upcoming Encounters Date Type Department Care Team (Late st Contact Info) Description 08/01/2024 3:00 PM EDT Office Visit [facility] [address] [place] [address] John Reyes DDS [address] [place] [address] Health Maintenance Due Date Last Done Comments Anxiety Screening 1986 HPV Screening 1986 Hepatitis C Screening 1986 Pap + HPV 1986 Tobacco Screening 1986 HIV Screening 2001 Relationship Safety Screening/Counseling 2001 Hypertension Screening (#1) 2004 Imm-Hepatitis B (1 of 3 - 19 + 3-dose series) 2005 Cervical Cancer Screening 10/30/2007 Pap Smear 10/30/2007 Dco-LAHDS-33 ( season) 2023 01/06/2022, 08/27/2020, 07/26/2020 Imm-Influenza (#1) 2023 01/06/2022, 12/17/2015 Alcohol and Drug Screen 03/23/2024 Depression Annual Screen 03/23/2024 Imm-DTaP/Tdap/Td (3 - Td or Tdap) 06/15/2024 015, 06/08/2008 Dental BW 05/22/2025 05/20/2024 Dental Examination 05/22/2025 05/20/2024 Dental Perio Charting 05/22/2025 05/20/2024 Dental Prophy 05/22/2025 05/20/2024 Diabetes Screening 08/24/2026 08/25/2023 Dental FMX/Pano 05/22/2029 05/20/2024 Cervical Ablation/Cold-Knife Conization Discontinued Cervical Cryotherapy Discontinued Colposcopy Discontinued Endometrial Biopsy Discontinued Excision/Leep Discontinued HPV Genotyping Discontinued Vaginal Pap Discontinued Vulvoscopy Discontinued Procedures Procedure Name Priority Date/Time Associated Diagnosis Comments DENTAL CASE MANAGEMENT - MOTIVATIONAL INTV Routine 05/20/2024 1:00 PM EST Caries of enamel (incipient) Caries PROPHYLAXIS - ADULT Routine 05/20/2024 1 :00 PM EST Caries of enamel (incipient) Caries INTRAORAL - COMP SERIES OF RADIOGRAPHIC IMAGES Routine 05/20/2024 1:00 PM EST Caries of enamel (incipient) Caries COMP ORAL EVALUATION - NEW/ESTABLISHED PATIENT Routine 05/20/2024 1:00 PM EST Caries of enamel (incipient) Caries CARIES RISK ASSESSMENT & DOC FINDING HIGH RISK Routine 05/20/2024 1:00 PM EST Caries of enamel (incipient) Caries NUTRITIONAL COUNSELING CONTROL OF DENTAL DISEASE Routine 05/20/2024 1:00 PM EST Caries of enamel (incipient) Caries ORAL HYGIENE INSTRUCTIONS Routine 2024 1:00 PM EST Caries of enamel (incipient) Caries ORAL CANCER SCREENING Routine 05/20/2024 1:00 PM EST Caries of enamel (incipient) Caries CASE PRESENTATION SUBS DTL & EXTENSIVE TX PLN Routine 05/20/2024 1:00 PM EST Caries of enamel (incipient) Caries 30,31 MANDIBULAR PARTIAL DENTURE - RESIN BASE Routine 05/20/2024 12:00 AM EST 3,4,5,7,8,9,12,13,14,15 MAXILLARY PARTIAL DENTURE - RESIN BASE Routine 05/20/2024 12:00 AM EST 29 B COMPOSITE - WISDOM (NON BILLABLE) Routine 05/20/2024 12:00 AM EST 28 B COMPOSITE - WISDOM (NON BILLABLE) Routine 05/20/2024 12:00 AM EST 6 F COMPOSITE - WISDOM (NON BILLABLE) Routine 05/20/2024 12:00 AM EST 2 MOL AMALGAM - WISDOM (NON BILLABLE) Routine 05/20/2024 12:00 AM EST 19 CROWN - PORCELAIN FUSED PREDOMINANTLY BASE METAL Routine 05/20/2024 12:00 AM EST 10 CROWN - PORCELAIN FUSED PREDOMINANTLY BASE METAL Routine 05/20/2024 12:00 AM EST 19 ROOT CANAL - WISDOM (NO BILLABLE) Routine 05/20/2024 12:00 AM EST 10 ROOT CANAL - WISDOM (NO BILLABLE) Routine 05/20/2024 12:00 AM EST from Last 3 Months Insurance [place]
--- OUTSIDE RECORDS SUMMARY | 2024-07-07 13:07 | XMS_ITS | Clinical Summary ---
Author Organization [facility] Address [address] [place] [address] Care Team Providers Care Laboratory Helper Name Role Phone Unavailable Primary Care Provider Unavailabl e Allergies Active Allergy Reactions Criticality Noted Date Comments Fish Allergy Unknown/Patient and Family Unable to Define Medium 02/11/2022 Medications * This document contains information received from the source organization and may not represent a complete record from that organization. ferrous sulfate 325 (65 FE) MG EC tablet Take 1 tablet (325 mg total) by mouth every morning with breakfast. 08/29/2022 Active albuterol (PROVENTIL HFA; VENTOLIN HFA) 108 (90 Base) MCG/ACT inhaler Inhale 2 puffs Every 4 (four) to 6 (six) hours as needed. 03/09/2023 Active nicotine (NICODERM CQ) 14 MG/24HR patchIndication s:Mood disorder Place 1 patch on the skin daily. 14 patch 09/01/2023 Active sertraline (ZOLOFT) 100 MG tabletIndicatio ns:Mood disorder Take 1 tablet (100 mg total) by mouth daily. 30 tablet 09/01/2023 Active traZODone (DESYREL) 50 MG tabletIndicatio ns:Mood disorder Take 1 tablet (50 mg total) by mouth nightly as needed for sleep (insomnia). 30 tablet 08/31/2023 Active Active Problems Problem Noted Date Diagnosed Date Alteration in patient safety due to identified s uicide risk 08/26/2023 Overview (08/26/2023): Leena Safety Plan Creation Date: 08/26/23 ?? Step 1: Warning signs: Warning Signs aislar?? dormir?? mucho Mi coraz??n se acelerar??, me enojar?? o comenzar?? a estar muy ansiosa. ?? Step 2: Internal coping strategies - Things I can do to take my mind off my problems without contacting another person: Strategies Escuchar m??bebe Jose Rafael algo que me erin re??r o juega con mi tel??fono. Caminar por el parque o la comunidad local ?? Step 3: People and social settings that provide distraction: Name Contact Information P??ngase en contacto con mi terapeuta asignada Llamar a mis amigos o familiares ?? Places Ir a mi restaurante favorito Ir a unPlaya local o un parque local ?? Step 4: People whom I can ask for help during a crisis: Name Contact Information Sandeep Lei (Novio) Alleman ([place] crisis respite) [phone] [facility] Peer Support Line ?? Step 5: Professionals or agencies I can contact during a crisis: Clinician/Agency Name Phone Emergency Contact L??ania directa de crisis 211 L??ania directa de suicidio 988 Ar de emergencias local ?? Suicide Prevention Lifeline Phone: Call or Text 988 Crisis Text Line: Text HOME to 662674 ?? Step 6: Making the environment safer (plan for lethal means safety): Did not identify any lethal methods ?? Optional: What is most important to me and worth living for?: Necesito vivir para m?? y para mi alf. ?? Leena Safety Plan. Mitra Falcon and Reg Bey. Used with permission of the authors. Alcohol intoxication 08/25/2023 Intramural leiomyoma of uterus 06/06/2022 0 08/26/2023 Overview (08/26/2023): Last Assessment & Plan: Start ibuprofen 600mg BID the day prior to menstrual bleeding x4-5 days and FU with me in 4 month Continue to FU with ELECTRIC DRILL OPERATOR. Iron deficiency anemia 02/02/2017 Overview (08/26/2023): Last Assessment & Plan: secondary to uterine fibroids start using iron supplementation once per day as opposed to PRN increase fluid intake during menstruation FU with me in 3-4 months Mood disorder 01/20/2017 08/26/2023 Social History Tobacco Use Types Packs/Day Years Used Date Smoking Tobacco: Never Assessed AUDIT-C Answer Date Recorded Q1: How often do you have a drink containing alc ohol? 2-4 times a month 08/25/2023 Q2: How many drinks containi ng alcohol do you have on a typical day when you are drinking? 5 or 6 08/25/2023 Q3: How often do you have si x or more drinks on one occasion? Never 08/25/2023 PHQ-2 Answer Date Recorded PHQ-2 Total Score 0 08/31/2023 Comments Unknown Sex and Gender Information Value Date Recorded Sex Assigned at Female 08/25/2023 12:30 AM EDT Legal Sex Female 12:14 AM EDT Gender Identity Female 08/25/2023 12:30 AM EDT Sexual Orientation Heterosexual (straight) 08/24 12:30 AM EDT Last Filed Vital Signs Vital Sign Reading Time Taken Comments Blood Pressure 101/65 08/31/2023 6:00 AM EDT Pulse 70 08/31/2023 6:00 AM EDT Temperature 36.4 ??C (97.6 ??F) 08/31/2023 6:00 AM ED T Respiratory Rate 16 08/31/2023 6:00 AM EDT Oxygen Saturation 97% 08/31/2023 6:00 AM EDT Inhaled Oxygen Concentration - - Weight 83.4 kg (183 lb 14.4 oz) 08/25/2023 6:22 PM EDT Height 154.9 cm (5' 1 ) 08/25/2023 6:22 PM EDT Body Mass Index 34.75 08/25/2023 6:22 PM EDT Plan of Treatment Health Maintenance Due Date Last Done Comments Hepatitis C Virus Screening 1986 HIV Screening 10/30/1999 DTaP/Tdap/Td Vaccines (1 - Tdap) 2005 Hepatitis B Vaccines (1 of 3 - 19+ 3-dose series) 2005 Pap Smear (Ages 21-65) 10/30/2007 Influenza Vaccine 10/22/2023 01/06/2022, 12/17/2015 COVID-19 Vaccine (2023-2 5 season) 2023 01/06/2022, 08/27/2020, 07/26/2020 HPV Vaccines Aged Out No longer eligi ble based on patient's age to complete this topic Pneumococcal Vaccine: Pediatric (0-5 Years) and At-Risk Patients (6 to 49 Years) Aged Out No longer eligible b ased on patient's age to complete this topic Insurance [facility] Advance Directives * Full Code (Latest Code Status on File) Date Activated Date Inactivated Comments 08/25/2023 6:48 PM
[2024-07-07 13:15] VITALS: BP 125/69; PULSE 78; RESP 16; TEMP 36.2; O2SAT 98
== END 2024-07-07 11:15 | disposition home or self-care (01) ==
PROVIDERS: Emergency Provider Emergency Medicine; PCP Internal Medicine
DX: M54.50 Low back pain, unspecified (principal)
CPT/HCPCS: 72100; 99282; 99283

== ENCOUNTER → 2024-07-07 10:00 | Outpatient (BNV) | payer MEDICAID, SELFPAY | PROVIDERS: Emergency Provider Emergency Medicine; PCP Internal Medicine; Visit Provider Radiology Diagnostic Radiology | DX: M54.50 Low back pain, unspecified (principal); W19.XXXA Unspecified fall, initial encounter | CPT/HCPCS: 72100 ==

== ENCOUNTER 2024-07-08 12:36 | Outpatient (REF) | payer MEDICAID, SELFPAY ==
--- OUTSIDE RECORDS SUMMARY | 2024-07-08 14:06 | XMS_ITS ---
Author Name [facility] Organization Unknown Results Test Name/Text Value Interpretation Date Range Source Benzodiaz Ur Ql Scn>200 ng/mL Normal [id number] - [facility] Amphetamines Ur Ql Normal [id number] - [facility] Opiates Ur Ql Scn>300 ng/mL Normal [id number] - [facility] PCP Ur Ql Scn>25 ng/mL Normal [id number] - [facility] BZE Ur Ql Normal [id number] - [facility] Cannabinoids Ur Ql Scn>50 ng/mL Normal [id number] - [facility] fentaNYL+Norfentanyl Ur Ql Scn Normal [id number] - [facility] Folate SerPl-mCnc 17.7ng/mL Normal [id number] 7.2 - [facility] HDLc SerPl 2.6Ratio Normal [id number] 0 - 5 [facility] LDLc SerPl Calc-mCnc 89mg/dL Normal [id number] - 130 [facility] HDLc SerPl-mCnc 67mg/dL Normal [id number] 39 - H [facility] Trigl SerPl-mCnc 93mg/dL Normal [id number] - 150 [facility] Cholest SerPl-mCnc 175mg/dL Normal [id number] - 200 [facility] Vit B12 SerPl-mCnc 301pg/mL Normal [id number] 243 - 89 4 [facility] Globulin Ser Calc-mCnc 3.3g/dL Normal [id number] 1.5 - 3.9 [facility] ALT SerPl-cCnc 13U/L Normal [id number] 10 - 50 HH CCT AST SerPl-cCnc 18U/L Normal [id number] 10 - 50 HH CCT GFR/BSA.pred SerPlBld PUP-CHK-OsLDoz 90 Normal [id number] 59 - [facility] Albumin SerPl-mCnc 4.1g/dL Normal [id number] 3.5 - 5 [facility] Albumin/Glob SerPl 1.2Ratio Normal 1 - 3 [facility] Creat SerPl-mCnc 0.5mg/dL Normal 0.4 - 1.1 [facility] Bilirub SerPl-mCnc 0.2mg/dL Normal 0.2 - 1 [facility] Anion Gap Bld-sCnc 11 Normal 7 - 17 [facility] Sodium SerPl-sCnc 134mmol/L Below low normal 13 6 - 145 [facility] Potassium SerPl-sCnc 3.3mmol/L Below low normal 3.4 - 5.3 [facility] Chloride SerPl-sCnc 99mmol/L Normal 98 - 10 7 [facility] Glucose SerPl-mCnc 136mg/dL Above high normal 65 - 99 [facility] Prot SerPl-mCnc 7.4g/dL Normal 6.3 - 8.3 H [facility] BUN/Creat SerPl 12Ratio Normal 10 - 25 H [facility]CT Calcium SerPl-mCnc 9mg/dL Normal 8.7 - 10 .5 [facility] CO2 SerPl-sCnc 24mmol/L Normal 22 - 33 HH CCT BUN SerPl-mCnc 6mg/dL Below low normal 8 - 2 1 [facility] ALP SerPl-cCnc 80U/L Normal 32 - 122 HH CCT TSH SerPl DL<=0.005 mIU/L-aCnc 2.15mIU/L Normal 0.27 - 4.2 [facility] Est. average glucose Bld gHb Est-mCnc 103mg/dL Normal [facility] Hgb A1c MFr Bld 5.2% Normal - 5.7 H [facility] Imm Granulocytes/leuk NFr Bld Auto 0.3% Normal [facility] Lymphocytes/leuk NFr Bld Auto 22.5% Normal [facility] PMV Bld Auto 10.8fL Normal [id number] 7.5 - 12.[address] Monocytes num Bld Auto 0.57Thou/uL Normal [id number] 0. 2 - 1.5 [facility] Hct VFr Bld Auto 34.4% Below low normal [id number] 35 - 47 [facility] Neutrophils num Bld Auto 5.3Thou/uL Normal [id number] 2 - 7.5 [facility] Neutrophils/leuk NFr Bld Auto 68.1% Normal [id number] [facility] Basophils/leuk NFr Bld Auto 0.3% Normal [id number] [facility] Basophils num Bld Auto 0.02Thou/uL Normal [id number] 0 - 0.2 [facility] Monocytes/leuk NFr Bld Auto 7.3% Normal [id number] [facility] Eosinophil num Bld Auto 0.12Thou/uL Normal [id number] 0 - 0.7 [facility] MCH RBC Qn Auto 23.3pg Below low normal [id number] 26 - 34 [facility] Eosinophil/leuk NFr Bld Auto 1.5% Normal [id number] [facility] Imm Granulocytes num Bld Auto 0.02Thou/uL Normal [id number] 0 - 0.1 [facility] RDW RBC Auto-Rto 17.2% Above high normal [id number] 11 .5 - 14.5 [facility] Platelet num Bld Auto 273Thou/uL Normal [id number] 150 - 450 [facility] MCHC RBC Auto-mCnc 30.5g/dL Normal [id number] 30 - 36 [facility] MCV RBC Auto 76fL Below low normal [id number] 80 - 10 0 [facility] WBC num Bld Auto 7.8Thou/uL Normal [id number] 4 - 11 [facility] RBC num Bld Auto 4.5Mil/uL Normal [id number] 4 - 5.4 [facility] Hgb Bld-mCnc 10.5g/dL Below low normal [id number] 11.7 - 15.7 [facility] Lymphocytes num Bld Auto 1.75Thou/uL Normal [id number] 1.5 - 4.5 [facility] Encounters Encounter Type Encounter Reason Primary Diagnosis Location Date Observation Bipolar disorder, unspecified Bipolar disorder, unspecified [employer] 08/25/2023 Care Team Organization Name Specialty Phone Email Start Date End Da molina [employer] 08/25/2023 06/08/2024 [employer] 08/25/2023
--- OUTSIDE RECORDS SUMMARY | 2024-07-08 14:06 | XMS_ITS | Clinical Summary ---
Author Organization [facility] Address [address] [place] [address] Care Team Providers Care Security Police Name Role Phone Unavailable Primary Care Provider [...] crisis: Name Contact Information Sandeep Lei (Novio) Donald ([facility] crisis respite) [phone] [facility] Peer Support Line ?? Step 5: Professionals or agencies I can contact during a crisis: Clinician/Agency Name Phone Emergency Contact L??ania directa de crisis 211 L??ania directa de suicidio 988 Ar de emergencias local ?? Suicide Prevention Lifeline Phone: Call or Text 988 Crisis Text Line: Text HOME to [phone] ?? Step 6: Making the environment safer [...] in 4 month Continue to FU with INSURANCE POLICY CLERK. Iron deficiency anemia 02/02/2017 Overview (08/26/2023): Last [...] patient's age to complete this topic Insurance [facility] Advance Directives * Full Code (Latest Code Status on File) Date Activated Date Inactivated Comments 08/25/2023 6:48 PM
--- OUTSIDE RECORDS SUMMARY | 2024-07-08 14:06 | XMS_ITS | Clinical Summary ---
Author Organization [facility] Address [address] [place] [address] Care Team Providers Care Foiling Machine Adjuster Name Role Phone Unavailable Primary Care Provider [...] Description 05/20/2024 1:00 PM EST Office Visit [facility] [address] [place] [address] Jairon Manzano RDH Caries of enamel (incipient) [...] Description 08/01/2024 3:00 PM EDT Office Visit [facility] [address] [place] [address] John Reyes DDS [address] [place] [address] Health Maintenance Due Date Last Done Comments Anxiety Screening 1986 HPV Screening 1986 Hepatitis C Screening 1986 Pap + HPV 1986 Tobacco Screening 1986 HIV Screening 2001 Relationship Safety Screening/Counseling 2001 Hypertension Screening (#1) 2004 Imm-Hepatitis B (1 of 3 - 19 + 3-dose series) 2005 Cervical Cancer Screening 10/30/2007 Pap Smear 10/30/2007 [id number] ( season) 2023 01/06/2022, 08/27/2020, 07/26/2020 Imm-Influenza [...] AM EST from Last 3 Months Insurance [place] MED[place] DENT[place]
--- OUTSIDE RECORDS SUMMARY | 2024-07-08 14:06 | XMS_ITS | Clinical Summary ---
Author Organization [employer] Address [address] [place] [address] Care Team Providers Care Animal Trapper Name Role Phone Radha Cherry MD Primary [...] in 4 month Continue to FU with MEDICAL SURGICAL TECH. Colitis 02/11/2022 Dysuria 02/11/2022 Incontinence of feces [...] Department Care Team Description 07/07/2024 Orders Only [facility] External Provider, [facility] 06/22/2024 Population Health Risk Score Community Care [facility] Department [address] [place] [id number] Provider, Population Health Generic 06/16/2024 Telephone [facility] [address] [place] [address] Radha Cherry MD No Show 06/07/2024 Patient Outreach [facility] [address] [place] [address] Radha Cherry MD Pre-visit Planning ((Unable to [...] EDT Narrative 07/07/2024 10:23 AM EDT ? [facility] ?[address] ?[place] [address] ?XRay Report ? Signed ? Patient: Blank,Peri ?MR#: [id number] ?? 030 ? : 1985 ?Acct:[id number] ? Age/Sex: 38 / F ?ADM Date: 07/07/24 ? Loc: HO.ED ? Attending Dr: ? Ordering Physician: Generic ED Physician ?? Date of Service: 07/07/24 ?? Procedure(s): XR lumbar spine 2-3V ?? Accession Number(s): [id number] ? cc: Radha Cherry MD; Generic ED [...] DD/ 1000 ? TD/TT: 07/07/24 1010 ? Railroad Car Loader: ? Procedure Note Rigo Woodall - 07/07/[address] [address] XRay Report Signed Patient: Peri BlankMR#: [id number] 030 : 1985Acct:[id number] Age/Sex: 38 / FADM Date: 07/07/24 Loc: HO.ED Attending Dr: Ordering Physician: Robyn ED Physician Date of Service: 07/07/24 Procedure(s): XR lumbar spine 2-3V Accession Number(s): [id number] cc: Radha Cherry MD; [facility] ED Physician EXAMINATION: XR LUMBOSACRAL SPINE CLINICAL [...] 07/07/24 1020 DD/ 1000 TD/TT: 07/07/24 1010 Railroad Car Loader: [facility] External Provider IMG XR PROCEDURES Final Result * Pap Smear (03/11/2022 12:00 AM EST) Swab Radha Cherry MD LAB CYTOLOGY ORDERABLES Final Result [facility] [address], [place] [address] from Last 3 Months or Most Recently Relevant to Health Maintenance Insurance [facility] C[facility] Care Teams Animal Trapper Relationship Specialty Start Date End Date Radha Cherry MD [address] [place] [id number] PCP - General Family Medicine 07/23/18
--- OUTSIDE RECORDS SUMMARY | 2024-07-08 14:06 | XMS_ITS | Encounter Summary ---
Author Organization [facility] Address [address] [place] [address] [address] [place] [address] Care Team Providers Care Clerk Operator Name Role Phone Radha Cherry MD Primary Care Provider + Encounter Details Date Type Department Care Team (Late st Contact Info) Description 07/07/2024 Orders Only [facility] External Provider, [facility] Social History Tobacco Use Types Packs/Day [...] EDT Narrative 07/07/2024 10:23 AM EDT ? [facility] ?[address] ?[place] [address] ?XRay Report ? Signed ? Patient: Blank,Peri ?MR#: [id number] ?? 030 ? : 1985 ?Acct:[id number] ? Age/Sex: 38 / F ?ADM Date: 07/07/24 ? Loc: HO.ED ? Attending Dr: ? Ordering Physician: Generic ED Physician ?? Date of Service: 07/07/24 ?? Procedure(s): XR lumbar spine 2-3V ?? Accession Number(s): [id number] ? cc: Radha Cherry MD; Generic ED [...] DD/ 1000 ? TD/TT: 07/07/24 1010 ? Mobile Marketing Specialist: ? Procedure Note Rigo Woodall - 07/07/[address] [address] XRay Report Signed Patient: Peri BlankMR#: [id number] 030 : 1985Acct:[id number] Age/Sex: 38 / FADM Date: 07/07/24 Loc: HO.ED Attending Dr: Ordering Physician: Generic ED Physician Date of Service: 07/07/24 Procedure(s): XR lumbar spine 2-3V Accession Number(s): [id number] cc: Radha Cherry MD; Generic ED Physician [...] 07/07/24 1020 DD/ 1000 TD/TT: 07/07/24 1010 Mobile Marketing Specialist: [facility] External Provider IMG XR PROCEDURES Final Result documented in this encounter Visit Diagnoses Not on filedocumented in this encounter Care Teams Clerk Operator Relationship Specialty Start Date End Date Radha Cherry MD [address] [place] [id number] PCP - General Family Medicine 07/23/18 documented as of this encounter
[2024-07-08 14:44] LABS: Alanine Aminotransferase 13 U/L (0-31); Albumin Level 4.1 g/dL (3.5-5.0); Anion Gap 12 (12-20); Aspartate Amino Transferase 17 U/L (5-31); Bilirubin Total 0.2 mg/dL (0.0-1.0); Blood Urea Nitrogen 3 mg/dL (9-16); Calcium 9.7 mg/dL (8.4-10.2); Carbon Dioxide 24 mmol/L (22-29); Chloride 104 mmol/L (96-108); Estimated Glomerular Filt Rate > 60; Glucose Random 98 mg/dL (60-115); Potassium 3.4 mmol/L (3.3-5.1); Sodium 137 mmol/L (135-145); Total Protein 7.8 g/dL (6.5-8.0)
[2024-07-08 19:12] LABS: Alkaline Phosphatase 78 U/L (39-117)
== END 2024-07-08 12:37 | disposition home or self-care (01) ==
LOC: HO.LAB 12:36
PROVIDERS: PCP Internal Medicine; Visit Provider Nurse Practitioner
DX: R19.7 Diarrhea, unspecified (principal); R79.82 Elevated C-reactive protein (CRP); R10.9 Unspecified abdominal pain; K21.9 Gastro-esophageal reflux disease without esophagitis
CPT/HCPCS: 36415; 80053; 86140; 99212

== ENCOUNTER 2024-07-08 12:36 | Outpatient (AMB) | payer MEDICAID, SELFPAY ==
--- NOTE | 2024-07-08 12:50 | A.OFFVIS_ITS ---
Vital Signs 07/08/24 12:52 Height 5 ft 1 in Weight 207 lb 3.752 oz BMI 39.2 BP 128/75 Blood Pressure Location Lt brachial Position Sitting Pulse 93 Intake Visit Reasons: Diverticulitis Intake Note: Peri presents in the office as a new patient for diverticulitis. CC: She states that she has some pains in her stomach and when she eats she has to go right to the bathroom with diarrhea. States they are very watery stools. Allergies SEAFOOD Allergy (Unknown, Uncoded 07/08/24 12:52) Rash HPI HPI Diverticulitis: Details: Assessment & Plan (1) Diverticulitis large intestine: Code(s): K57.32 - Diverticulitis of large intestine without perforation or abscess without bleeding Plan: KENYAN #Susan Live She is tearful when I enter the room, she says she is depressed r/t breaking up with her long term care social worker partner and he took out children with him. Apparently, he has custody. She says that she has good legal support and a therapist but still very difficult to deal with such rejection. She denies any suicidal or homicidal ideation. Her TICS pain has largely resolved but with some continues cramping that is well effected by bentyl. She has chronic lifelong diarrhea, this is worse when eating red meat. She had an elevated CRP in the past, I will repeat this and get rast, fecal calprotectin, and a pancreatic elastase. Obviously were going to try to rule out food allergies, malabsorption syndrome and inflammatory bowel disease. She has low abd cramping worse at night/suprapbic low abd. She has bentyl. We discussed getting a colonoscopy since she has had so many episodes of diverticulitis and she is agreeable. This may also be helpful in diagnosing her chronic diarrhea. There are no prior problems with anesthesia or sedation. She denies any cardiac or respiratory problems. There are no infectious disease problems. There is no known family history of colon cancer or polyps. ROV 4 weeks. (2) Diarrhea: Code(s): R19.7 - Diarrhea, unspecified (3) Hemorrhoids: Code(s): K64.9 - Unspecified hemorrhoids (4) Rectal bleeding: Code(s): K62.5 - Hemorrhage of anus and rectum (5) Diarrhea: Code(s): R19.7 - Diarrhea, unspecified Orders: Orders Comprehensive Met. Panel Today K62.5 - Hemorrhage of anus and rectum, R19.7 - Diarrhea, unspecified C Reactive Protein Today K62.5 - Hemorrhage of anus and rectum, R19.7 - Diarrhea, unspecified Calprotectin, Fecal Today R19.7 - Diarrhea, unspecified Pancreatic Elastase-1 Today R19.7 - Diarrhea, unspecified Rast Allergen Today R19.7 - Diarrhea, unspecified Medications: New peg 3350-electrolytes 236-22.74-6.74 -5.86 gram (Golytely) until fecal effluent is clear; do not exceed a total volume of 2,000 mL 240 mL PO Q10M 1 day 4,000 mL 0RF Z12.11 - Encounter for screening for malignant neoplasm of colon LABS: Laboratory Tests 04/23/22 12:48 Estimated GFR > 60 Total Bilirubin 0.2 AST 8 ALT 8 Alkaline Phosphatase 98 C-Reactive Protein 1.60 H RAST panel shows a significant shrimp allergy Pancreatic a last taste was not obtained COLONOSCOPY This is not been scheduled no order in computer BIOPSY TODAY'S VISIT KENYAN #[id number], Anjum THIS PATIENT WAS LAST seen 04/23/2022 She says she is having suprapubic cramping. It happens after eating almost always after eating. She has frequent diarrhea. THis is basically the same as when I last saw her. I review the labs we did at that time, and I guidance counselor her about her shrimp allergy. Since she never did the stool julieta, and she had the elevated CRP I will re order this. She admits that she did not come in because her anxiety/panic/depression had a severe flair. She was doing better in the past on her bentyl, so we will restart this along with her omeprazole 20mg qd. ROV next avail [facility] Surgical History Hx of section Family History Father No problems noted. Mother Absolute anemia Social History Household Members: Spouse and Children Housing: Apartment Alcohol intake: current Alcohol intake frequency: holidays/special occasions only Patient Tobacco Use Status: Never used Tobacco Sexual orientation: Straight/Heterosexual Gender identity: Female Female Reproductive History Menstrual Age of Menarche: 11 Review of Systems Const Denies fatigue, Denies fever(s), Denies night sweats, Denies poor appetite and Denies weight loss ENT Reports Normal hearing present, Denies dental pain, Denies dysphagia, Denies hearing loss, Denies mouth pain, Denies odynophagia, Denies throat swelling, Denies tongue swelling and Reports other (Dentition adequate) Card Reports no additional complaints Resp Reports no additional complaints GI Details: Reports abdominal pain, Denies melena, Denies bloating, Denies hematochezia, Denies constipation, Reports GI cramping, Denies dysphagia, Denies excessive flatus, Denies early satiety, Reports heartburn, Reports diarrhea, Denies nausea, Denies odynophagia, Denies vomiting and Denies hematemesis Skin/Breast Denies pruritus, Denies lesions, Denies rash and Denies jaundice Neuro Reports Normal hearing present and Denies Abnormal speech present Psych Reports anxiety, Reports depression and Reports panic attacks Endo Denies fatigue Aller/Immun Denies throat swelling and Denies tongue swelling Physical Exam Vital Signs: Last Vital Signs Pulse 93 07/08/24 12:52 BP 128/75 07/08/24 12:52 BMI result Body Mass Index 39.2 Const General: cooperative, no acute distress, well developed and well groomed Nutritional Appearance: well nourished and obese Orientation/consciousness: oriented to person, oriented to place and oriented to time Limitations: language barrier HEENT Head: Yes normocephalic and Yes atraumatic Eyes General: appearance normal, both eyes and all related structures Pupils: Equal, round and reactive pupils present Neck Neck: Yes normal visual inspection and Yes no lymphadenopathy Thyroid: Thyroid normal Resp Effort & Inspection: normal respiratory effort and able to speak in complete sentences Auscultation: clear to auscultation bilaterally Cardio Rate: regular rate Rhythm: regular rhythm Heart sounds: Normal, physiologic split S2 sound present Peripheral pulses: radial pulses present and posterior tibial pulses present GI Inspection: No distended, Yes Abdominal panniculus present and Yes obesity Palpation (GI): Soft to palpation, nontender, no guarding, not rigid and No hepatosplenomegaly present Percussion: Yes normal to percussion Auscultation: normal bowel sounds Rectal Exam - Female: deferred Skin General skin exam: no rashes or lesions noted, turgor normal, skin not dry, no jaundice, No spider nevi and no striae Rashes: no rashes Nails: normal Neuro General: oriented to person, oriented to place and oriented to time Cranial nerves: Yes Equal, round and reactive pupils present and Yes Normal hearing present Speech: No Abnormal speech present Extrem General: Yes normal to inspection, No clubbing, No cyanosis and No edema Psych Appearance: grossly normal and well kempt Mental Status: mental status grossly normal Speech and movement: Normal speech and movement present Affect: normal affect Attitude: cooperative Thought process: Normal thought process present and not confabulating Thought content: Normal thought content present Insight: Limited insight present (Psych) Judgement: Limited judgement present (Psych) Assessment & Plan Assessment & Plan (1) Diarrhea: Code(s): R19.7 - Diarrhea, unspecified Category: Medical (2) Elevated C-reactive protein (CRP): Code(s): R79.82 - Elevated C-reactive protein (CRP) Category: Medical (3) Abdominal cramping: Code(s): R10.9 - Unspecified abdominal pain Category: Medical (4) GERD (gastroesophageal reflux disease): Code(s): K21.9 - Gastro-esophageal reflux disease without esophagitis Category: Medical Plan KENYAN #[id number], Anjum THIS PATIENT WAS LAST seen 04/23/2022 She says she is having suprapubic cramping. It happens after eating almost always after eating. She has frequent diarrhea. This is basically the same as when I last saw her. I review the labs we did at that time, and I guidance counselor her about her shrimp allergy. Since she never did the stool julieta, and she had the elevated CRP I will re order this. She admits that she did not come in because her anxiety/panic/depression had a severe flair. She was doing better in the past on her bentyl, so we will restart this along with her omeprazole 20mg qd. ROV next avail Orders: Orders EGD/[place] Combo - GI Use Only Today K21.9 - Gastro-esophageal reflux disease without esophagitis, R19.7 - Diarrhea, unspecified, R79.82 - Elevated C-reactive protein (CRP) Calprotectin, Fecal Today R10.9 - Unspecified abdominal pain, R19.7 - Diarrhea, unspecified, R79.82 - Elevated C-reactive protein (CRP) C Reactive Protein Today R10.9 - Unspecified abdominal pain, R19.7 - Diarrhea, unspecified, R79.82 - Elevated C-reactive protein (CRP) Comprehensive Met. Panel Today R10.9 - Unspecified abdominal pain, R19.7 - Diarrhea, unspecified, R79.82 - Elevated C-reactive protein (CRP) Medications: New omeprazole 20 mg PO DAILY 30 caps 6RF K21.9 - Gastro-esophageal reflux disease without esophagitis bisacodyl (Dulcolax (bisacodyl)) 10 mg (2 x 5 mg) PO BEDTIME 4 tabs 0RF 2 days peg 3350-electrolytes 236-22.74-6.74 -5.86 gram (Golytely) until fecal effluent is clear; do not exceed a total volume of 2,000 mL 240 mL PO Q10M 4,000 mL 0RF 1 day Z12.11 - Encounter for screening for malignant neoplasm of colon Refilled dicyclomine 20 mg PO QID 120 tabs 3RF 30 days R10.9 - Unspecified abdominal pain, R19.7 - Diarrhea, unspecified, R79.82 - Elevated C-reactive protein (CRP) Coding Level of Care Code Est Pt Level 4 (99160) Diagnoses Diarrhea R19.7 Elevated C-reactive protein (CRP) R79.82 Abdominal cramping R10.9 GERD (gastroesophageal reflux disease) K21.9 Time Spent (min) 34
[2024-07-08 12:52] VITALS: BP 128/75; PULSE 93; BMI 39.2
--- OUTSIDE RECORDS SUMMARY | 2024-07-08 13:14 | XMS_ITS | Clinical Summary ---
Author Organization [facility] Address [address] [place] [address] Care Team Providers Care Patent Lawyer Name Role Phone Unavailable Primary Care Provider [...] Description 05/20/2024 1:00 PM EST Office Visit [facility] [address] [place] [address] Jairon Manzano RDH Caries of enamel (incipient) [...] Description 08/01/2024 3:00 PM EDT Office Visit [facility] [address] [place] [address] John Reyes DDS [address] [place] [address] Health Maintenance Due Date Last Done Comments Anxiety Screening 1986 HPV Screening 1986 Hepatitis C Screening 1986 Pap + HPV 1986 Tobacco Screening 1986 HIV Screening 2001 Relationship Safety Screening/Counseling 2001 Hypertension Screening (#1) 2004 Imm-Hepatitis B (1 of 3 - 19 + 3-dose series) 2005 Cervical Cancer Screening 10/30/2007 Pap Smear 10/30/2007 [id number] ( season) 2023 01/06/2022, 08/27/2020, 07/26/2020 Imm-Influenza [...] AM EST from Last 3 Months Insurance [place] MED[place] DENTAL
--- OUTSIDE RECORDS SUMMARY | 2024-07-08 13:14 | XMS_ITS | Encounter Summary ---
Author Organization [employer] [facility] Address [address] [place] [address] 7[address] [place] [address] Care Team Providers Care Professor Of Art Name Role Phone Radha Cherry MD Primary Care Provider + Encounter Details Date Type Department Care Team (Late st Contact Info) Description 07/07/2024 Orders Only [facility] External Provider, [facility] Social History Tobacco Use Types Packs/Day [...] Anatomical Region Laterality Modality Spine, L-spine Radiographic Cuort ging 07/07/2024 10:0 0 AM EDT Narrative 07/07/2024 10:23 AM EDT ? [facility] ?[address] ?[place] [address] ?XRay Report ? Signed ? Patient: Blank,Peri ?MR#: [id number] ?? 030 ? : 1985 ?Acct:[id number] ? Age/Sex: 38 / F ?ADM Date: 07/07/24 ? Loc: HO.ED ? Attending Dr: ? Ordering Physician: Generic ED Physician ?? Date of Service: 07/07/24 ?? Procedure(s): XR lumbar spine 2-3V ?? Accession Number(s): [id number] ? cc: Radha Cherry MD; Generic ED [...] ?? EDT RP ? Dictated By: ?Anjum iTnsley MD ? Signed By: ?<Electronically signed by Anjum Chao MD in OV> ? 07/07/24 1020 ? DD/ 1000 ? TD/TT: 07/07/24 1010 ? Baby Formula Mixer: ? Procedure Note Rigo Woodall - 07/07/[address] [address] XRay Report Signed Patient: Peri BlankMR#: [id number] 030 : 1985Acct:[id number] Age/Sex: 38 / FADM Date: 07/07/24 Loc: HO.ED Attending Dr: Ordering Physician: Generic ED Physician Date of Service: 07/07/24 Procedure(s): XR lumbar spine 2-3V Accession Number(s): [id number] cc: Radha Cherry MD; Generic ED Physician EXAMINATION: XR LUMBOSACRAL SPINE CLINICAL INFORMATION: FALL COMPARISON: None available. TECHNIQUE: Three views of the lumbosacral spine. FINDINGS: There is no cortical disruption or malalignment. No lytic or blastic lesions. XR/XR lumbar spine 2-3V IMPRESSION: No acute fracture or listhesis. Negative exam. Electronically signed by: Anjum Peng MD 07/07/2024 10:20 AM EDT RP Dictated By: Ajnum Tinsley MD Signed By: <Electronically signed by Anjum Chao MDin OV> 07/07/24 1020 DD/ 1000 TD/TT: 07/07/24 1010 Baby Formula Mixer: [facility] External Provider IMG XR PROCEDURES Final Result documented in this encounter Visit Diagnoses Not on filedocumented in this encounter Care Teams Professor Of Art Relationship Specialty Start Date End Date Radha Cherry MD [address] [place] [address] PCP - General Family Medicine 07/23/18 documented as of this encounter
--- OUTSIDE RECORDS SUMMARY | 2024-07-08 13:14 | XMS_ITS | Clinical Summary ---
Author Organization [employer] Address [address] [facility] 7[address] [place] [address] Care Team Providers Care Hide Examiner Name Role Phone Radha Cherry MD Primary [...] in 4 month Continue to FU with CAR RENTAL SERVICE ATTENDANT. Colitis 02/11/2022 Dysuria 02/11/2022 Incontinence of feces [...] Department Care Team Description 07/07/2024 Orders Only [facility] External Provider, [facility] 06/22/2024 Population Health Risk Score Community Care [facility] (C[facility]) Department [address] [place] [address] Provider, Population Health Generic 06/16/2024 Telephone [facility] [address] [place] [address] Radha Cherry MD No Show 06/07/2024 Patient Outreach [facility] [address] [place] [address] Radha Cherry MD Pre-visit Planning ((Unable to [...] EDT Narrative 07/07/2024 10:23 AM EDT ? [facility] ?[address] ?[place] [address] ?XRay Report ? Signed ? Patient: Blank,Peri ?MR#: [id number] ?? 030 ? : 1985 ?Acct:[id number] ? Age/Sex: 38 / F ?ADM Date: 07/07/24 ? Loc: HO.ED ? Attending Dr: ? Ordering Physician: Generic ED Physician ?? Date of Service: 07/07/24 ?? Procedure(s): XR lumbar spine 2-3V ?? Accession Number(s): [id number] ? cc: Radha Cherry MD; Generic ED [...] DD/ 1000 ? TD/TT: 07/07/24 1010 ? Manager Renewable Energy: ? Procedure Note Rigo Woodall - 07/07/[address] [address] XRay Report Signed Patient: Peri BlankMR#: [id number] 030 : 1985Acct:[id number] Age/Sex: 38 / FADM Date: 07/07/24 Loc: HO.ED Attending Dr: Ordering Physician: Robyn ED Physician Date of Service: 07/07/24 Procedure(s): XR lumbar spine 2-3V Accession Number(s): [id number] cc: Radha Cherry MD; [facility] ED Physician EXAMINATION: XR LUMBOSACRAL SPINE CLINICAL [...] 07/07/24 1020 DD/ 1000 TD/TT: 07/07/24 1010 Manager Renewable Energy: [facility] External Provider IMG XR PROCEDURES Final Result * Pap Smear (03/11/2022 12:00 AM EST) Swab Radha Cherry MD LAB CYTOLOGY ORDERABLES Final Result [facility] [address], [place] [address] from Last 3 Months or Most Recently Relevant to Health Maintenance Insurance [facility] C3 Care Teams Hide Examiner Relationship Specialty Start Date End Date Radha Cherry MD [address] [place] [address] PCP - General Family Medicine 07/23/18
--- OUTSIDE RECORDS SUMMARY | 2024-07-08 13:14 | XMS_ITS | Clinical Summary ---
Author Organization [facility] Address [address] [place] [address] Care Team Providers Care Material Mixer Name Role Phone Unavailable Primary Care Provider [...] crisis: Name Contact Information Sandeep Lei (Novio) Foss ([facility] crisis respite) [phone] [facility] Peer Support Line ?? Step 5: Professionals or agencies I can contact during a crisis: Clinician/Agency Name Phone Emergency Contact L??ania directa de crisis 211 L??ania directa de suicidio 988 Ar de emergencias local ?? Suicide Prevention Lifeline Phone: Call or Text 988 Crisis Text Line: Text HOME to [phone] ?? Step 6: Making the environment safer (plan for lethal means safety): Did not identify any lethal methods ?? Optional: What is most important to me and worth living for?: Necesito vivir para m?? y para mi alf. ?? Leena Safety Plan. Mitra Falcon and [employer]. Used with permission of the authors. Alcohol intoxication 08/25/2023 Intramural leiomyoma of uterus 06/06/2022 0 08/26/2023 Overview (08/26/2023): Last Assessment & Plan: Start ibuprofen 600mg BID the day prior to menstrual bleeding x4-5 days and FU with me in 4 month Continue to FU with LEAVE MANAGER. Iron deficiency anemia 02/02/2017 Overview (08/26/2023): Last [...] patient's age to complete this topic Insurance [facility] Advance Directives * Full Code (Latest Code Status on File) Date Activated Date Inactivated Comments 08/25/2023 6:48 PM
== END 2024-07-08 13:37 | disposition home or self-care (01) ==
LOC: HO.HGI 12:37
PROVIDERS: PCP Internal Medicine; Visit Provider Nurse Practitioner
DX: R19.7 Diarrhea, unspecified (principal); R79.82 Elevated C-reactive protein (CRP); R10.9 Unspecified abdominal pain; K21.9 Gastro-esophageal reflux disease without esophagitis
CPT/HCPCS: 99214

== ENCOUNTER → 2024-09-17 20:45 | Outpatient (BNV) | payer MEDICAID, SELFPAY | PROVIDERS: Emergency Provider Emergency Medicine Emergency Medical Services; PCP Internal Medicine; Visit Provider Specialist | DX: M25.572 Pain in left ankle and joints of left foot (principal); R22.42 Localized swelling, mass and lump, left lower limb | CPT/HCPCS: 73562; 73590; 73600 ==

== ENCOUNTER 2024-09-17 21:11 | Emergency (ER) | payer MEDICAID, SELFPAY ==
--- NOTE | ~2024-09-17 | XR_ITS ---
CLINICAL HISTORY: pain swelling s p trauma 3 view left ankle Comparison: None provided Findings: No acute fractures. Ankle mortise intact. No significant arthritic change or erosions. No ankle effusion. Diffuse soft tissue prominence either swelling or body habitus. IMPRESSION: 1. No acute fracture or dislocation. This document has been electronically signed by: Paty Germain MD on 09/17/2024 22:44:05
--- NOTE | ~2024-09-17 | XR_ITS ---
CLINICAL HISTORY: pain 2 view left tibia-fibula Comparison: None provided Findings No fractures or dislocations. No joint effusion. No significant arthritic change. No radiopaque foreign body. IMPRESSION: 1. No Acute fracture or dislocation. This document has been electronically signed by: Paty Germain MD on 09/17/2024 23:42:45
--- NOTE | ~2024-09-17 | XR_ITS ---
CLINICAL HISTORY: pain 4 view left knee Comparison: None provided Findings: Bones intact. No dislocations. No significant arthritic change or erosions. No joint effusion. No radiopaque foreign body. IMPRESSION: 1. No acute findings. This document has been electronically signed by: Paty Germain MD on 09/18/2024 00:44:33
[2024-09-17 21:31] VITALS: BP 135/71; PULSE 92; RESP 20; O2SAT 97; BMI 38.9
[2024-09-17 22:01] VITALS: BP 111/71; PULSE 82; TEMP 36.9; O2SAT 97
--- NOTE | 2024-09-17 23:03 | ED_ITS ---
HPI - Extremity Problem General Chief complaint: Extremity Problem Stated complaint: left santiago injury Time Seen by Provider: 09/17/24 21:52 History of Present Illness HPI Narrative: Patient is 38-year-old female presents today with having pain to the left lower extremity. Patient reports tripping subsequently twisted her ankle complaining of pain to the knee the pain to the ankle there is no head injury there is no nausea no vomiting no systemic complaints the incident was purely mechanical. Related Data Home Medications ?Medication ?Instructions ?Recorded ?Confirmed albuterol sulfate 90 mcg/actuation 1 inh inhalation Q4 -6H PRN 10/19/20 breath activated powder inhaler,sensor amitriptyline 10 mg tablet 10 mg PO BEDTIME 09/25/21 ferrous sulfate 324 mg (65 mg 324 mg PO BID 09/25/21 iron) tablet,delayed release lorazepam 0.5 mg tablet 0.5 mg PO DAILY anxiety 09/11 fluticasone propionate 110 1 puff inhalation BID 04/23 mcg/actuation HFA aerosol inhaler (Flovent HFA) sumatriptan succinate 50 mg tablet 0 mg PO 04/23/22 venlafaxine 150 mg 150 mg PO QAM 04/23/22 capsule,extended release 24 hr risperidone 0.5 mg tablet 0.5 mg PO BID 07/08/24 Previous Rx's ?Medication ?Instructions ?Recorded hydrocortisone 2.5 % topical cream 1 appl SD BID PRN h emorrhoids #30 10/19/20 with perineal applicator grams (Proctosol HC) cyclobenzaprine 10 mg tablet 10 mg PO TID PRN muscle s pasm #14 07/07/24 tabs lidocaine 5 % topical patch 1 patch topical DAILY #15 ea 07/07/24 naproxen 500 mg tablet 500 mg PO BID #30 tabs 07/07 bisacodyl 5 mg tablet,delayed 10 mg (2 x 5 mg) PO BEDT NAYELY 2 days 07/08/24 release (Dulcolax (bisacodyl)) #4 tabs dicyclomine 20 mg tablet 20 mg PO QID 30 days #120 ta bs 07/08/24 omeprazole 20 mg capsule,delayed 20 mg PO DAILY #30 ca ps 07/08/24 release peg 3350-electrolytes 236 240 ml PO Q10M 1 day #4,000 mL 07/08/24 gram-22.74 gram-6.74 gram-5.86 gram solution (Golytely) Allergies Allergy/AdvReac Type Severity Reaction Status Date / Time SEAFOOD Allergy Unknown Rash Uncoded 09/17/24 21:32 Review of Systems Review of Systems: No chest pain or shortness breath no nausea Yes all other systems are reviewed and are negative [facility] Past Medical History Attestation statement: The following information was validated with the patient. Surgical History Hx of section Family History Family History Father No problems noted. Mother Absolute anemia Social History Social History Household Members: Spouse and Children Housing: Apartment Alcohol intake: current Alcohol intake frequency: holidays/special occasions only Patient Tobacco Use Status: Never used Tobacco Advance Directives: No Advance Directives Information Provided: No Sexual orientation: Straight/Heterosexual Gender identity: Female Physical Exam Vital Signs: Vital Signs: Last Vital Signs Temp 98.2 F 09/18/24 00:04 Pulse 77 09/18/24 00:04 Resp 20 09/17/24 21:31 BP 123/57 L 09/18/24 00:04 Pulse Ox 98 09/18/24 00:04 O2 Del Method Room Air 09/18/24 00:04 BMI result Body Mass Index 38.9 Appearance: Alert. Oriented X3. No acute distress. Eyes: Pupils equal, round and reactive to light. ENT: Pharynx normal. Neck: Normal inspection. Neck supple. No lymph nodes noted. No crepitus CVS: Normal heart rate and rhythm. Pulses normal. Normal S1 and S2 Respiratory: No respiratory distress. Breath sounds normal. No Wheezing. No rales Abdomen: Soft and nontender. No rigidity. No distention. good BS x4 Skin: Skin warm and dry. Normal skin color. Normal skin turgor. Extremities: No lower extremity edema. Neurovascular intact to all extremities. Pain to left knee area which is no palpation of the patella. There is no pain on palpation of medial and lateral collateral ligament there is pain on palpation of the proximal tib-fib. There is pain on palpation of the ankle. Both at the medial and lateral malleolus. There is no pain at the base of the 5th metatarsal. There is good distal pulses. There is good sensation. Neuro: Oriented X 3. No motor deficit. No sensory deficit. Moving all extermities. No slurred speech Medical Decision Making Medical Decision Making [facility] Narrative: Patient is status post twisting to the ankle. My interpretation patient's ankle x-ray, knee x-ray, tib-fib x-ray were all grossly negative. No acute fracture. Patient will be discharged home close follow-up outpatient basis likely had a bad sprain. In stable condition. Differential Diagnosis Differential Diagnoses: The differential diagnosis associated with the presentation includes Fracture, sprain Admission/Observation Consideration of admission/observation: Escalation of care including admission/observation considered No need to stay as patient is well-appearing able to ambulate Lab Data [facility] Lab Attestation statement: I reviewed the patient's lab results. Independent Interpretation I performed an independent interpretation of an: Plain X-Ray (X-ray of the knee x-ray of the tib-fib x-ray of the ankle were all negative) Radiology Impression Discussion of test interpretation with radiology: I have reviewed the radiologist's reading. Social Determinants Patient?s care significantly limited by Social Determinants of Health including: Problems related to primary support group Discharge Plan Discharge Clinical Impression: Ankle sprain Instructions: Ankle Sprain (DC) Prescriptions: No Action naproxen 500 mg tablet 500 mg PO BID Qty: 30 0RF cyclobenzaprine 10 mg tablet 10 mg PO TID PRN (Reason: muscle spasm) Qty: 14 0RF lidocaine 5 % adhesive patch,medicated 1 patch topical DAILY Qty: 15 0RF Rx Instructions: leave on most painful area for up to 12 hrs albuterol sulfate 90 mcg/actuation aero powdr breath act w/sensor 1 inh inhalation Q4-6H PRN hydrocortisone [Proctosol HC] 2.5 % cream with perineal applicator 1 appl SD BID PRN (Reason: hemorrhoids) Qty: 30 6RF sumatriptan succinate 50 mg tablet 0 mg PO fluticasone propionate [Flovent HFA] 110 mcg/actuation HFA aerosol inhaler 1 puff inhalation BID venlafaxine 150 mg capsule,extended release 24hr 150 mg PO QAM amitriptyline 10 mg tablet 10 mg PO BEDTIME lorazepam 0.5 mg tablet 0.5 mg PO DAILY ferrous sulfate 324 mg (65 mg iron) tablet,delayed release (DR/EC) 324 mg PO BID risperidone 0.5 mg tablet 0.5 mg PO BID omeprazole 20 mg capsule,delayed release(DR/EC) 20 mg PO DAILY Qty: 30 6RF dicyclomine 20 mg tablet 20 mg PO QID 30 Days Qty: 120 3RF peg 3350-electrolytes [Golytely] 236-22.74-6.74 -5.86 gram recon soln 240 ml PO Q10M 1 Days Qty: 4000 0RF Rx Instructions: until fecal effluent is clear; do not exceed a total volume of 2,000 mL bisacodyl [Dulcolax (bisacodyl)] 5 mg tablet,delayed release (DR/EC) 10 mg PO BEDTIME 2 Days Qty: 4 0RF Referrals: Radha Cherry MD [Primary Care Provider, Internal Medicine] - 2 days Print Language: Thai
[2024-09-18 00:04] VITALS: BP 123/57; PULSE 77; TEMP 36.8; O2SAT 98
[2024-09-18 01:01] VITALS: BP 123/57; PULSE 77; RESP 16; TEMP 36.8; O2SAT 98
== END 2024-09-18 01:02 | disposition home or self-care (01) ==
PROVIDERS: Emergency Provider Emergency Medicine Emergency Medical Services; PCP Internal Medicine
DX: S93.402A Sprain of unspecified ligament of left ankle, initial encounter (principal); M25.562 Pain in left knee; X58.XXXA Exposure to other specified factors, initial encounter; Y93.9 Activity, unspecified; Y92.9 Unspecified place or not applicable; Y99.8 Other external cause status
CPT/HCPCS: 73562; 73590; 73600; 99283; 99284

== ENCOUNTER 2024-12-15 18:28 | Emergency (ER) | payer MEDICAID, SELFPAY ==
--- NOTE | ~2024-12-15 | CT_ITS ---
CLINICAL HISTORY: RLQ Abd Pain Tenderness; R O Appy CT abdomen and pelvis with contrast Comparison: CT - CT ABDOMEN PELVIS WITH IV CONTRAST - 02/02/22 16:05 EST Findings: LIMITED CHEST: Lung bases are clear. LIVER: No focal liver lesion. Small hypoattenuating lesions, too small to characterize however may represent cysts. BILIARY: No gallbladder wall thickening, radiopaque stone, or ductal dilatation. PANCREAS: No mass or ductal dilatation. SPLEEN: No splenomegaly. KIDNEYS: No hydronephrosis or radiopaque stone. ADRENALS: No nodule. VASCULAR: No aneurysm. RETROPERITONEUM: No lymphadenopathy or mass. BOWEL/MESENTERY: No evidence of obstruction. No free fluid or air. Normal appendix. Nonspecific submucosal fat deposition of the rectosigmoid colon. ABDOMINAL WALL: No mass or significant abnormality. URINARY BLADDER: No focal wall thickening. PELVIC NODES: No pelvic lymphadenopathy. PELVIC ORGANS: There is a right adnexal 3.8 cm low-attenuation lesion likely ovarian origin. BONES: No acute fracture. OTHER: Negative. IMPRESSION: 1. Right adnexal low-attenuation lesion measuring 3.8 cm, likely ovarian in origin. Recommend pelvic ultrasound to exclude ovarian torsion. 2. Normal appendix. 3. Submucosal fat deposition in the rectosigmoid colon, nonspecific however may be seen in the setting of inflammatory bowel disease. This document has been electronically signed by: Linn Coreas MD on 12/16/2024 00:50:55
--- NOTE | ~2024-12-15 | US_ITS ---
CLINICAL HISTORY: suprapubic pain, hx of ovarian cysts US pelvis transabdominal and transvaginal with Doppler Comparison: US/RI/SR - US PELVIS - 04/11/22 10:57 EST Findings: Transabdominal scanning performed for overall anatomy. Transvaginal scanning performed for additional detail. Anteverted uterus is 12.4 cm length. No uterine fibroid visualized on this examination. Normal myometrium. Endometrium 9 mm thickness. Right ovary measures 4.4 x 3.8 x 4.7 cm. There is a 4.4 x 3.5 x 3.8 cm heterogeneous complex cyst of the right ovary. Left ovary is not visualized due to overlying bowel gas. Normal color Doppler with arterial/venous spectral tracing of the right ovary. No free fluid. IMPRESSION: 1. Left ovary is not visualized due to overlying bowel gas. No evidence of right ovarian torsion. 2. Right-sided complex cyst measuring up to 4.4 cm, O-RADS category 2. This may represent a hemorrhagic cyst or endometrioma. Consider follow-up ultrasound in 6 months. This document has been electronically signed by: Linn Coreas MD on 12/15/2024 20:27:16
--- NOTE | 2024-12-15 19:09 | ED_ITS ---
HPI - Abdominal Pain General Chief Complaint: Abdominal Pain Stated Complaint: right side ovarian cyst pain Time Seen by Provider: 12/15/24 22:27 Source: patient and family Mode of arrival: ambulatory Limitations: no limitations History of Present Illness ED Provider: Nathan RANDHAWA HPI narrative: The patient is a 39-year-old female presenting to the ED reporting for the past 3-4 years she has been experiencing painful menstruation which was correlated to a right-sided ovarian cyst. The patient reports pain is intermittently present when not menstruating, but tolerable, however increases with a menstruation and then against subsides. Patient reports however 5 days ago she finished her menstruation and pain persisted at the same level as it occurs while menstruating. The patient denies any irregular vaginal discharge, or persistent bleeding, denies dysuria, hematuria, fever/chills, nausea, vomiting, chest pain, shortness of breath, recent sick contacts, or recent trauma. The patient reports history of previous , denies other surgical abdominal history. The patient reports over the past few days she has also been experiencing watery brown diarrhea. Patient reports she also has experienced some spotting of rectal blood, reports history of hemorrhoids with a similar presentation previously. Related Data Home Medications ?Medication ?Instructions ?Recorded ?Confirmed albuterol sulfate 90 mcg/actuation 1 inh inhalation Q4 -6H PRN 10/19/20 breath activated powder inhaler,sensor amitriptyline 10 mg tablet 10 mg PO BEDTIME 09/25/21 ferrous sulfate 324 mg (65 mg 324 mg PO BID 09/25/21 iron) tablet,delayed release lorazepam 0.5 mg tablet 0.5 mg PO DAILY anxiety 09/11 fluticasone propionate 110 1 puff inhalation BID 04/23 mcg/actuation HFA aerosol inhaler (Flovent HFA) sumatriptan succinate 50 mg tablet 0 mg PO 04/23/22 venlafaxine 150 mg 150 mg PO QAM 04/23/22 capsule,extended release 24 hr risperidone 0.5 mg tablet 0.5 mg PO BID 07/08/24 Previous Rx's ?Medication ?Instructions ?Recorded hydrocortisone 2.5 % topical cream 1 appl NH BID PRN h emorrhoids #30 10/19/20 with perineal applicator grams (Proctosol HC) cyclobenzaprine 10 mg tablet 10 mg PO TID PRN muscle s pasm #14 07/07/24 tabs lidocaine 5 % topical patch 1 patch topical DAILY #15 ea 07/07/24 naproxen 500 mg tablet 500 mg PO BID #30 tabs 07/07 bisacodyl 5 mg tablet,delayed 10 mg (2 x 5 mg) PO BEDT NAYELY 2 days 07/08/24 release (Dulcolax (bisacodyl)) #4 tabs dicyclomine 20 mg tablet 20 mg PO QID 30 days #120 ta bs 07/08/24 omeprazole 20 mg capsule,delayed 20 mg PO DAILY #30 ca ps 07/08/24 release peg 3350-electrolytes 236 240 ml PO Q10M 1 day #4,000 mL 07/08/24 gram-22.74 gram-6.74 gram-5.86 gram solution (Golytely) Allergies Allergy/AdvReac Type Severity Reaction Status Date / Time SEAFOOD Allergy Unknown Rash Uncoded 12/15/24 19:14 Review of Systems Review of Systems Yes all other systems are reviewed and are negative PMFSH Past Medical History Surgical History Hx of section Family History Family History Father No problems noted. Mother Absolute anemia Social History Social History Household Members: Spouse and Children Housing: Apartment Alcohol intake: current Alcohol intake frequency: a few times a month Patient Tobacco Use Status: Never used Tobacco Smoked in Last 30 Days: No Use of substances other than those prescribed or required for medical reasons: Yes Substance Use Type: Crack/Cocaine Substance Use Frequency: Weekly Advance Directives: No Advance Directives Information Provided: No Do you have a plan to hurt others: No Plan Sexual orientation: Straight/Heterosexual Gender identity: Female Physical Exam ED Vital Signs: Vital Signs - 24 hr 12/15/24 19:13 12/15/24 22:32 Temperature 97.8 F 98.0 F Pulse Rate 78 69 Respiratory Rate 18 16 Blood Pressure 134/74 108/53 L Pulse Oximetry 99 100 Oxygen Delivery Method Room Air Room Air BMI result Body Mass Index 39.7 CONSTITUTIONAL: The patient appears non-toxic, well nourished and in no acute distress. Vital signs as documented. HEAD: Atraumatic, normocephalic. EYES: EOMs grossly intact, pupils equal, conjunctiva clear, no exudate. ENT: Nares patent, no discharge. Airway patent, no audible stridor, visible mucosa is pink and moist without noted lesions. NECK: Trachea is midline, no obvious masses or gross abnormalities. CHEST: Symmetric movement, normal appearance. LUNGS: LS present and CTAB, no w/r/r. Non-labored work of breathing. CARDIAC: Regular Rhythm, S1/S2 appreciated, no murmurs, rubs or gallops. ABDOMEN: Abdomen soft x4 quadrants, positive tenderness to palpation of the right lower quadrant and suprapubic region, negative rebound, negative Rovsing's, no palpable masses or organomegaly. : Deferred. EXTREMITIES: Normal tone, moves all extremities spontaneously without reported pain. No obvious acute injury or deformity noted. NEURO: Alert and oriented x3, CN II-XII appear grossly intact. Cerebellar Functioning grossly intact. No obvious sensory or motor deficits. Speech clear and appropriate. PSYCH: normal affect, appropriate eye contact, fluid speech, with appropriate response to questioning. No reported suicidality or homicidality. SKIN: Warm, dry, color appropriate, normal turgor. No rashes noted. Course Course Course Narrative: This is an RME: Additional HPI, ROS, PE not included below will be deferred to primary provider. RME assessment and note performed by: Fernanda Ng PA-C This is a 13-[id number]-rmv-female, with a hx of anemia, asthma, ovarian cysts, who presents to the ER with a complaint of lower abdominal pain. Endorsing diarrhea. Hx of ovarian cysts. No chance of . TTP overlying the suprapubic region Plan: Labs, UA, further ER eval needed. Medical Decision Making Medical Decision Making MDM Narrative: 11:22 PM 12/15/2024 ([place] RANDHAWA): The patient is a 39-year-old female presenting to the ED reporting for the past 3-4 years she has been experiencing painful menstruation which was correlated to a right-sided ovarian cyst. The patient reports pain is intermittently present when not menstruating, but tolerable, however increases with a menstruation and then against subsides. Patient reports however 5 days ago she finished her menstruation and pain persisted at the same level as it occurs while menstruating. The patient denies any irregular vaginal discharge, or persistent bleeding, denies dysuria, hematuria, fever/chills, nausea, vomiting, chest pain, shortness of breath, recent sick contacts, or recent trauma. The patient reports history of previous , denies other surgical abdominal history. The patient reports over the past few days she has also been experiencing watery brown diarrhea. Patient reports she also has experienced some spotting of rectal blood, reports history of hemorrhoids with a similar presentation previously. The patient in the ED is well-appearing, no acute distress. Vital signs are reassuring. The patient's exam reveals tenderness of the suprapubic region and right lower quadrant. The patient's laboratory evaluation shows no leukocytosis, significant anemia, electrolyte abnormality, or WES. Patient's LFTs are unremarkable, beta hCG is negative. Patient's urinalysis is not consistent with infection. The patient's EKG is nonischemic. The patient was sent from triage for a pelvic ultrasound which demonstrates a complex right-sided ovarian cyst, possibly hemorrhagic, with dimensions similar in size to right-sided ovarian cyst identified on ultrasound in March of 2022. Ultrasound today shows no evidence of ovarian torsion. Due to the patient's right lower quadrant tenderness, we will send the patient for CT abdomen to rule out appendicitis. Patient will be treated with Toradol for pain. 12:54 AM 12/16/2024 ([place] RANDHAWA): The patient's CT shows normal appendix, redemonstrates known right ovarian cyst. At this time the patient is symptoms are likely secondary to her ovarian cyst, with no evidence of torsion on ultrasound, patient will be discharged with supportive care and instructions to follow up with OBGYN for additional management. Admission/Observation Consideration of admission/observation: Escalation of care including admission/observation considered Lab Data MDM Lab Attestation statement: I reviewed the patient's lab results. 12/15/24 19:35 12/15/24 19:35 Labs: Lab Results 12/15/24 12/15/24 Range/Units 19:35 22:06 WBC 8.4 (4.8-10.8) X10*3/uL RBC 4.30 (4.20-5.50) X10*6/uL Hgb 10.3 L (12.0-16.0) g/dl Hct 34.0 L (37.0-47.0) % MCV 79.1 L (80.0-98.0) fL MCH 24.0 L (27.0-33.0) pg MCHC 30.3 L (31.0-35.0) g/dl RDW 17.4 H (11.0-16.0) % Plt Count 241 (160-400) X10*3/uL MPV 11.1 (9.4-12.3) fL Immature Gran % (Auto) 0.4 (0.0-0.4) % Neut % (Auto) 69.0 (45-73) % Lymph % (Auto) 21.1 (20-40) % Johnson % (Auto) 7.4 (2-11) % Eos % (Auto) 2.0 (0-4) % Baso % (Auto) 0.1 (0-2) % Lymph # (Auto) 1.8 (1.2-4.9) X10*3/uL Johnson # (Auto) 0.6 (0.1-1.2) X10*3/uL Eos # (Auto) 0.2 (0.0-0.4) X10*3/uL Baso # (Auto) 0.0 (0.0-0.2) X10*3/uL Abs Immat Gran (auto) 0.03 (0.00-0.03) X10*3/uL Absolute Neuts (auto) 5.8 (2.0-8.3) x10*3/uL Absolute Nucleated RBC 0.000 (0.0-0.012) X10*3/uL Nucleated RBC % (auto) 0.0 (0.0-0.2) /100WBC Sodium 138 (135-145) mmol/L Potassium 4.3 D (3.3-5.1) mmol/L Chloride 105 (96-108) mmol/L Carbon Dioxide 27 (22-29) mmol/L Anion Gap 10 L (12-20) BUN 11 (9-16) mg/dL Creatinine 0.65 (0.5-1.4) mg/dL Estim Creat Clear Calc 123.7 Estimated GFR > 60 Random Glucose 97 (60-115) mg/dL Calcium 8.6 D (8.4-10.2) mg/dL Magnesium 2.0 (1.6-2.6) mg/dL Total Bilirubin 0.1 (0.0-1.0) mg/dL Direct Bilirubin < 0.2 (0.0-0.5) mg/dL AST 20 (5-31) U/L ALT 19 (0-31) U/L Alkaline Phosphatase 103 (39-117) U/L Total Protein 7.4 (6.5-8.0) g/dL Albumin 4.0 (3.5-5.0) g/dL Beta HCG, Quant < 2 mIU/mL Urine Color Yellow Urine Appearance Clear Urine pH 7.5 (5.0-9.0) Ur Specific Frederic 1.015 (1.005-1.025) Urine Protein Negative (Neg-Trace) mg/dL Urine Glucose (UA) Negative (Negative) mg/dL Urine Ketones Negative (Negative) mg/dL Urine Blood Trace H (Negative) Urine Nitrite Negative (Negative) Ur Leukocyte Esterase Negative (Negative) Urine RBC 3-5 H (0-2) /HPF Urine WBC 0-5 (0-5) /HPF Ur Squamous Epith Cells 6-10 (0-2) /HPF Urine Bacteria None Seen (None Seen) Hyaline Casts 0-2 (0-2) /LPF Independent Interpretation I performed an independent interpretation of an: EKG (EKG shows sinus rhythm with rate of 61, no evidence of acute ischemia, no ST elevation, no ectopy. QTC 396. Compared to previous on 09/06/2016 there are no significant morphology changes.) Radiology Impression Discussion of test interpretation with radiology: I have reviewed the radiologist's reading. Radiologist Impression: CLINICAL HISTORY: suprapubic pain, hx of ovarian cysts US pelvis transabdominal and transvaginal with Doppler Comparison: US/NH/SR - US PELVIS - 04/11/22 10:57 EST Findings: Transabdominal scanning performed for overall anatomy. Transvaginal scanning performed for additional detail. Anteverted uterus is 12.4 cm length. No uterine fibroid visualized on this examination. Normal myometrium. Endometrium 9 mm thickness. Right ovary measures 4.4 x 3.8 x 4.7 cm. There is a 4.4 x 3.5 x 3.8 cm heterogeneous complex cyst of the right ovary. Left ovary is not visualized due to overlying bowel gas. Normal color Doppler with arterial/venous spectral tracing of the right ovary. No free fluid. IMPRESSION: 1. Left ovary is not visualized due to overlying bowel gas. No evidence of right ovarian torsion. 2. Right-sided complex cyst measuring up to 4.4 cm, O-RADS category 2. This may represent a hemorrhagic cyst or endometrioma. Consider follow-up ultrasound in 6 months. This document has been electronically signed by: Linn Coreas MD on 12/15/2024 20:27:16 CLINICAL HISTORY: RLQ Abd Pain Tenderness; R O Appy CT abdomen and pelvis with contrast Comparison: CT - CT ABDOMEN PELVIS WITH IV CONTRAST - 02/02/22 16:05 EST Findings: LIMITED CHEST: Lung bases are clear. LIVER: No focal liver lesion. Small hypoattenuating lesions, too small to characterize however may represent cysts. BILIARY: No gallbladder wall thickening, radiopaque stone, or ductal dilatation. PANCREAS: No mass or ductal dilatation. SPLEEN: No splenomegaly. KIDNEYS: No hydronephrosis or radiopaque stone. ADRENALS: No nodule. VASCULAR: No aneurysm. RETROPERITONEUM: No lymphadenopathy or mass. BOWEL/MESENTERY: No evidence of obstruction. No free fluid or air. Normal appendix. Nonspecific submucosal fat deposition of the rectosigmoid colon. ABDOMINAL WALL: No mass or significant abnormality. URINARY BLADDER: No focal wall thickening. PELVIC NODES: No pelvic lymphadenopathy. PELVIC ORGANS: There is a right adnexal 3.8 cm low-attenuation lesion likely ovarian origin. BONES: No acute fracture. OTHER: Negative. IMPRESSION: 1. Right adnexal low-attenuation lesion measuring 3.8 cm, likely ovarian in origin. Recommend pelvic ultrasound to exclude ovarian torsion. 2. Normal appendix. 3. Submucosal fat deposition in the rectosigmoid colon, nonspecific however may be seen in the setting of inflammatory bowel disease. This document has been electronically signed by: Linn Coreas MD on 12/16/2024 00:50:55 External Record Review External record reviewed: Outpatient record and Prior outpatient labs Prescription Management I considered prescription management with: Pain Medication and Antibiotic Medications Administered Discontinued Medications Generic Name Dose Route Start Last Admin Trade Name Freq PRN Reason Stop Dose Admin Iohexol 85 ml 12/15/24 23:55 12/15/24 23:57 Iohexol 350 Mg/Ml 100 Ml Infus..Btl IV 12/15/24 23:56 85 ml ONCE ONE Administration Ketorolac Tromethamine 15 mg 12/15/24 23:38 12/16/24 00:07 Ketorolac Tromethamine 15 Mg/Ml Vial IVPUSH 12/15/24 23:39 15 mg ONCE ONE Administration Discharge Plan Discharge Clinical Impression: Complex cyst of right ovary Patient Disposition: Home, Self-Care Instructions: Ovarian Cyst (ED) Additional Instructions: Dannie por elegir el [facility] M?dico [place] para cedeno atenci?n m?dica hoy. Afortunadamente, cedeno evaluaci?n de laboratorio, an?lisis de orina, tomograf?a computarizada y examen de hoy son tranquilizadores. No se observaron signos de apendicitis aguda. Cedeno ecograf?a p?lvica volvi? a demostrar cedeno quiste ov?rico derecho, sin evidencia de torsi?n ov?mar. En audelia momento, no hay indicaci?n de ingreso hospitalario ni de observaci?n continua en urgencias, y es seguro darle de katie. Es probable que cedeno dolor se deba a cedeno quiste ov?rico derecho. No hay indicaci?n para antibi?ticos. Es fundamental que acuda a eloy consulta de seguimiento con cedeno ginec?logo para eloy reevaluaci?n y tratamiento definitivo para cedeno doloroso quiste ov?rico. Debe lena dosis alternas (escalonadas) de ibuprofeno 600 mg y Tylenol 1000 mg cada 4 horas, seg?n sea necesario, para cualquier dolor adicional. Mant?ngase lucia hidratada y descanse lo suficiente. Por favor, consulte tambi?n con cedeno m?dico de cabecera para eloy reevaluaci?n, un tratamiento adicional de alexis s?ntomas y atenci?n preventiva continua. Si no tiene un m?dico de cabecera, llame a [facility] al [phone] para asignarle erickson nuevo. Mientras espera la asignaci?n de cedeno nuevo m?dico de cabecera, puede llamar a nuestra [facility]n [facility] al [phone] para necesidades que no clarita de emergencia. Por favor, regrese al servicio de urgencias si presenta un cambio grave o repentino en alexis s?ntomas, fiebre superior a 38 ?C que no mejora con Tylenol o ibuprofeno, v?mitos recurrentes o cualquier otro s?ntoma o inquietud nuevo o que empeore. Thank you for choosing [facility]'s Emergency Department for your care today. Thankfully your laboratory evaluation, urinalysis, CT, and exam today are all reassuring. There was no evidence of acute appendicitis. Your pelvic ultrasound redemonstrated your known right ovarian cyst with no evidence of ovarian torsion. At this time there is no indication for admission to the hospital or continued ED observation, and it is safe to discharge you home. Your pain is likely due to your right ovarian cyst. There is no indication for antibiotics. It is extremely important that you follow up with your OBGYN for re-evaluation and definitive care regarding your painful ovarian cyst. You should take alternating (staggered) doses of ibuprofen 600mg and Tylenol 1000mg every 4 hours as needed for any additional pain. Please stay well hydrated and get plenty of rest. Please also follow up with your primary care physician for re-evaluation, additional management of your symptoms, and continued preventative care. If you do not have a primary care physician, please call the [facility] at [phone] to establish a new primary care physician. While waiting to establish your new primary care physician, you can call our Walk-in Care [facility] at [phone] for non-emergency needs. Please return to the emergency department if you develop a severe or sudden change in your symptoms, a fever over 100.4 that does not improve with Tylenol or Ibuprofen, recurrent vomiting, or any other new or worsening symptoms or concerns. Prescriptions: No Action naproxen 500 mg tablet 500 mg PO BID Qty: 30 0RF cyclobenzaprine 10 mg tablet 10 mg PO TID PRN (Reason: muscle spasm) Qty: 14 0RF lidocaine 5 % adhesive patch,medicated 1 patch topical DAILY Qty: 15 0RF Rx Instructions: leave on most painful area for up to 12 hrs albuterol sulfate 90 mcg/actuation aero powdr breath act w/sensor 1 inh inhalation Q4-6H PRN hydrocortisone [Proctosol HC] 2.5 % cream with perineal applicator 1 appl NH BID PRN (Reason: hemorrhoids) Qty: 30 6RF sumatriptan succinate 50 mg tablet 0 mg PO fluticasone propionate [Flovent HFA] 110 mcg/actuation HFA aerosol inhaler 1 puff inhalation BID venlafaxine 150 mg capsule,extended release 24hr 150 mg PO QAM amitriptyline 10 mg tablet 10 mg PO BEDTIME lorazepam 0.5 mg tablet 0.5 mg PO DAILY ferrous sulfate 324 mg (65 mg iron) tablet,delayed release (DR/EC) 324 mg PO BID risperidone 0.5 mg tablet 0.5 mg PO BID omeprazole 20 mg capsule,delayed release(DR/EC) 20 mg PO DAILY Qty: 30 6RF dicyclomine 20 mg tablet 20 mg PO QID 30 Days Qty: 120 3RF peg 3350-electrolytes [Golytely] 236-22.74-6.74 -5.86 gram recon soln 240 ml PO Q10M 1 Days Qty: 4000 0RF Rx Instructions: until fecal effluent is clear; do not exceed a total volume of 2,000 mL bisacodyl [Dulcolax (bisacodyl)] 5 mg tablet,delayed release (DR/EC) 10 mg PO BEDTIME 2 Days Qty: 4 0RF Referrals: Radha Cherry MD [Primary Care Provider, Internal Medicine] Clinical Impression: Complex cyst of right ovary Print Language: Panamanian
[2024-12-15 19:13] VITALS: BP 134/74; PULSE 78; RESP 18; TEMP 36.6; O2SAT 99; BMI 39.7
--- NOTE | 2024-12-15 19:13 | ECG_ITS ---
Test Reason : dizziness Blood Pressure : */* mmHG Vent. Rate : 61 BPM Atrial Rate : 61 BPM P-R Int : 148 ms QRS Dur : 88 ms QT Int : 394 ms P-R-T Axes : 29 13 18 degrees QTcB Int : 396 ms Normal sinus rhythm with sinus arrhythmia Normal ECG When compared with ECG of 06-Sep-2016 07:15, No significant change was found Referred By: Fernanda Ng Electronically Signed By: Doni Montgomery
[2024-12-15 19:36] LABS: MANUAL DIFF FLAG NO
[2024-12-15 19:37] LABS: Hematocrit 34.0 % (37.0-47.0); Hemoglobin 10.3 g/dl (12.0-16.0); Imm Gran Abs Auto 0.03 X10*3/uL (0.00-0.03); Imm Gran Pct Auto 0.4 % (0.0-0.4); Lymphocytes Absolute Auto 1.8 X10*3/uL (1.2-4.9); Mean Corpuscular HGB Conc 30.3 g/dl (31.0-35.0); Mean Corpuscular Hemoglobin 24.0 pg (27.0-33.0); Mean Corpuscular Volume 79.1 fL (80.0-98.0); NRBC Abs Auto 0.000 X10*3/uL (0.0-0.012); NRBC Pct Auto 0.0 /100WBC (0.0-0.2); Platelet Count 241 X10*3/uL (160-400); Red Blood Count 4.30 X10*6/uL (4.20-5.50); White Blood Count 8.4 X10*3/uL (4.8-10.8)
[2024-12-15 20:00] LABS: Alanine Aminotransferase 19 U/L (0-31); Albumin Level 4.0 g/dL (3.5-5.0); Alkaline Phosphatase 103 U/L (39-117); Anion Gap 10 (12-20); Aspartate Amino Transferase 20 U/L (5-31); Blood Urea Nitrogen 11 mg/dL (9-16); Calcium 8.6 mg/dL (8.4-10.2); Carbon Dioxide 27 mmol/L (22-29); Chloride 105 mmol/L (96-108); Creatinine Clr Calc Pharmacy 123.7; Estimated Glomerular Filt Rate > 60; Magnesium 2.0 mg/dL (1.6-2.6); Potassium 4.3 mmol/L (3.3-5.1); Sodium 138 mmol/L (135-145); Total Protein 7.4 g/dL (6.5-8.0)
--- OUTSIDE RECORDS SUMMARY | 2024-12-15 21:28 | XMS_ITS | Encounter Summary ---
Author Organization [employer] Address [address] [facility] [address] [place] [address] Care Team Providers Care Correctional Supply Supervisor Name Role Phone Radha Cherry MD Primary Care Provider + Encounter Details Date Type Department Care Team (Late st Contact Info) Description 12/15/2024 Orders Only GENERIC EXTERNAL DATA DEPARTMENT Provider, Generic External Data Social History Tobacco Use Types Packs/Day Years [...] Procedure Name Priority Date/Time Associated Diagnosis Comments US PELVIS TRANSVAGINAL Routine 12/15/2024 8:27 PM EDT CBC WITH AUTO DIFFERENTIAL Routine 12/15/2024 7:35 PM EDT HCG, TOTAL, QN Routine 12/15/2024 7:35 PM EDT MAGNESIUM Routine 12/15/2024 7:35 PM EDT HEPATIC FUNCTION PANEL Routine 12/15/2024 7:35 PM EDT BASIC METABOLIC PANEL Routine 12/15/2024 7:35 PM EDT documented in this encounter Results * US Pelvis Transvaginal (12/15/2024 8:27 PM EDT) Anatomical Region Laterality Modality Pelvis Ultrasound 12/15/2024 8:27 PM EDT Narrative 12/15/2024 8:28 PM EDT [place] [address] Ultrasound Report Signed Patient: Peri Blank MR#: [id number] 030 : 1985 Acct:[id number] Age/Sex: 39 / F ADM Date: 12/15/24 Loc: HO.ED Attending Dr: Ordering Physician: Fernanda Ng Date of Service: 12/15/24 Procedure(s): US pelvic and transvaginal Accession Number(s): [id number] cc: Radha Cherry MD; Fernanda Ng Reason for Exam: suprapubic pain, hx of ovarian cysts CLINICAL HISTORY: suprapubic pain, hx of ovarian cysts US pelvis transabdominal and transvaginal with Doppler Comparison: US/WI/SR - US PELVIS - 04/11/22 10:57 EST Findings: Transabdominal scanning performed for overall anatomy. Transvaginal scanning performed for additional detail. Anteverted uterus is 12.4 cm length. No uterine fibroid visualized on this examination. Normal myometrium. Endometrium 9 mm thickness. Right ovary measures 4.4 x 3.8 x 4.7 cm. There is a 4.4 x 3.5 x 3.8 cm heterogeneous complex cyst of the right ovary. Left ovary is not visualized due to overlying bowel gas. Normal color Doppler with arterial/venous spectral tracing of the right ovary. No free fluid. IMPRESSION: 1. Left ovary is not visualized due to overlying bowel gas. No evidence of right ovarian torsion. 2. Right-sided complex cyst measuring up to 4.4 cm, O-RADS category 2. This may represent a hemorrhagic cyst or endometrioma. Consider follow-up ultrasound in 6 months. This document has been electronically signed by: Linn Coreas MD on 12/15/2024 20:27:16 Dictated By: Linn Coreas MD Signed By: <Electronically signed by Linn Coreas MD in [place]> 12/15/242027 DD/ 26 TD/TT: 12/15/242026 Human Resource Internship: Procedure Note Donotmuluinterpreter, Image - 12/15/2024 [place] [address] Ultrasound Report Signed Patient: Peri BlankMR#: [id number] 030 : 1985Acct:[id number] Age/Sex: 39 / FADM Date: 12/15/24 Loc: HO.ED Attending Dr: Ordering Physician: Fernanda Ng Date of Service: 12/15/24 Procedure(s): US pelvic and transvaginal Accession Number(s): [id number] cc: Radha Cherry MD; Fernanda Ng Reason for Exam: suprapubic pain, hx of ovarian cysts CLINICAL HISTORY: suprapubic pain, hx of ovarian cysts US pelvis transabdominal and transvaginal with Doppler Comparison: US/WI/SR - US PELVIS - 04/11/22 10:57 EST Findings: Transabdominal scanning performed for overall anatomy. Transvaginal scanning performed for additional detail. Anteverted uterus is 12.4 cm length. No uterine fibroid visualized on this examination. Normal myometrium. Endometrium 9 mm thickness. Right ovary measures 4.4 x 3.8 x 4.7 cm. There is a 4.4 x 3.5 x 3.8 cm heterogeneous complex cyst of the right ovary. Left ovary is not visualized due to overlying bowel gas. Normal color Doppler with arterial/venous spectral tracing of the right ovary. No free fluid. IMPRESSION: 1. Left ovary is not visualized due to overlying bowel gas. No evidence of right ovarian torsion. 2. Right-sided complex cyst measuring up to 4.4 cm, O-RADS category 2. This may represent a hemorrhagic cyst or endometrioma. Consider follow-up ultrasound in 6 months. This document has been electronically signed by: Linn Coreas MD on 12/15/2024 20:27:16 Dictated By: Linn Coreas MD Signed By: <Electronically signed by Linn Coreas MD in OV> 12/15/242027 DD/ 26 TD/TT: 12/15/242026 Human Resource Internship: us [facility] External Provider IMG US PROCEDURES Final Result * hCG, Total, Quantitative (12/15/2024 7:35 PM EDT) HCG Quantitative <2 mIU/mL [facility] Comment:Weeks post LMP Appro ximate hCG(Last Menstrual Period) Range (mIU/ml)3 - 4 weeks 9 - 1304 - 5 weeks 75 - 2,6005 - 6 weeks 850 - 20,8006 - 7 weeks 4000 - 100,2007 - 12 weeks 11,500 - 289,88618 - 16 weeks 18,300 - 137,70066 - 29 weeks (2nd trimester) 1,400 - 53,17704 - 41 weeks (3rd trimester) 940 - 60,000The [place] B- hCG assay is used for the early detection ofpregnancy; it cannot be used to diagnose any conditionunrelated to . If a B-hCG level is not supportedby the clinical evidence, results should be confirmed by analternative method (qualitative urine hCG, for example). 12/15/2024 7:35 PM EDT 12/15/2024 7:35 PM EDT Generic External Data Provider LAB BLOOD ORDERAB LES Final Result Performing Organization Address [facility] Co de Phone Number [facility] [address] [place] [phone] * Magnesium (12/15/2024 7:35 PM EDT) Magnesium 2.0 1.6 - 2.6 mg/dL [facility] 12/15/2024 7:35 PM EDT 12/15/2024 7:35 PM EDT Generic External Data Provider LAB BLOOD ORDERAB LES Final Result Performing Organization Address [facility]/ZIP Co de Phone Number [facility] [address] [place] [phone] * (ABNORMAL) Basic Metabolic Panel (12/15/2024 7:35 PM EDT) Sodium 138 135 - 145 mmol/L [facility] Potassium 4.3 3.3 - 5.1 mmol/L [facility] Chloride 105 96 - 108 mmol/L [facility] Carbon Dioxide 27 22 - 29 mmol/L [facility] Anion Gap 10(L) 12 - 20 [facility] Urea Nitrogen (BUN) 11 9 - 16 mg/dL [facility] Creatinine, Serum 0.65 0.5 - 1.4 mg/dL [facility] Creatinine Clr Calc Pharmacy 123.7 [facility] Comment:Provided height and weight: 154.94 cm,95.3 kg.eGFR (calculated from the MDRD study equation) and eCrCl(calculated from the Cockcroft-Gault equation) are based ondifferent parameters and may not yield comparable results.If eCrCl result is absurd, please check patient'sheight/weight. Estimated Glomerular Filt Rate >60 [facility] Comment:Chronic Kidney Disea se: Estimated GFR < 60 mL/min/1.75h4Ikxcqa Kidney Disease: Estimated GFR < 15 mL/min/1.73m2 Glucose 97 60 - 115 mg/dL [facility] Calcium 8.6 8.4 - 10.2 mg/dL [facility] 12/15/2024 7:35 PM EDT 12/15/2024 7:35 PM EDT us Generic External Data Provider LAB BLOOD ORDERAB LES Final Result [facility] [address] [place] [phone] * Hepatic Function Panel (12/15/2024 7:35 PM EDT) Bilirubin, Total 0.1 0.0 - 1.0 mg/dL [facility] Bilirubin, Direct <0.2 0.0 - 0.5 mg/dL [facility] Aspartate Amino Transferase 20 5 - 31 U/L [facility] Alanine Aminotransferase 19 0 - 31 U/L [facility] Total Protein 7.4 6.5 - 8.0 g/dL [facility] Albumin Level 4.0 3.5 - 5.0 g/dL [facility] Alkaline Phosphatase 103 39 - 117 U/L [facility] 12/15/2024 7:35 PM EDT 12/15/2024 7:35 PM EDT us Generic External Data Provider LAB BLOOD ORDERAB LES Final Result [facility] [address] [place] [phone] * (ABNORMAL) CBC auto differential (12/15/2024 7:35 PM EDT) White Blood Count 8.4 4.8 - 10.8 X10*3/uL [facility] Red Blood Count 4.30 4.20 - 5.50 X10*6/uL [facility] Hemoglobin 10.3(L) 12.0 - 16.0 g/dl [facility] Hematocrit 34.0(L) 37.0 - 47.0 % [facility] Mean Corpuscular Volume 79.1(L) 80.0 - 98.0 fL [facility] Mean Corpuscular Hemoglobin 24.0(L) 27.0 - 33.0 pg [facility] Mean Corpuscular HGB Conc 30.3(L) 31.0 - 35.0 g/dl [facility] Red Cell Distribution Width 17.4(H) 11.0 - 16.0 % [facility] Platelet Count 241 160 - 400 X10*3/uL [facility] Mean Platelet Volume 11.1 9.4 - 12.3 fL [facility] Neutrophils Percent Auto 69.0 45 - 73 % [facility] Imm Gran Pct Auto 0.4 0.0 - 0.4 % [facility] Lymphocytes Percent Auto 21.1 20 - 40 % [facility] Monocytes Percent Auto 7.4 2 - 11 % [facility] Eosinophils Percent Auto 2.0 0 - 4 % [facility] Basophils Percent Auto 0.1 0 - 2 % [facility] NRBC Pct Auto 0.0 0.0 - 0.2 /100WBC [facility] Neutrophils Absolute Auto 5.8 2.0 - 8.3 x10*3/uL [facility] Imm Gran Abs Auto 0.03 0.00 - 0.03 X10*3/uL [facility] Lymphocytes Absolute Auto 1.8 1.2 - 4.9 X10*3/uL [facility] Monocytes Absolute Auto 0.6 0.1 - 1.2 X10*3/uL [facility] Eosinophils Absolute Auto 0.2 0.0 - 0.4 X10*3/uL [facility] Basophils Absolute Auto 0.0 0.0 - 0.2 X10*3/uL [facility] NRBC Abs Auto 0.000 0.0 - 0.012 X10*3/uL [facility] 12/15/2024 7:35 PM EDT 12/15/2024 7:35 PM EDT us Generic External Data Provider LAB BLOOD ORDERAB LES Final Result Performing Organization Address City/State/[facility] Co de Phone Number [facility] [address] [place] [phone] documented in this encounter Visit Diagnoses Not on filedocumented in this encounter Care Teams Correctional Supply Supervisor Relationship Specialty Start Date End Date Radha Cherry MD [address] [place] [phone] PCP - General Family Medicine 07/23/18 documented as of this encounter
--- OUTSIDE RECORDS SUMMARY | 2024-12-15 21:28 | XMS_ITS | Clinical Summary ---
Author Organization [facility] Address [address] [place] [address] Care Team Providers Care Grease Man Name Role Phone Unavailable Primary Care Provider [...] (08/26/2023): Leena Safety Plan Creation Date: 08/26/23 Step 1: Warning signs: Warning Signs aislar dormir mucho Mi coraz n se acelerar , me enojar o comenzar a estar muy ansiosa. Step 2: Internal coping strategies - Things I can do to take my mind off my problems without contacting another person: Strategies Escuchar m bebe Jose Rafael algo que me erin re r o juega con mi tel fono. Caminar por el parque o la comunidad local Step 3: People and social settings that provide distraction: Name Contact Information P ericka en contacto con mi terapeuta asignada Llamar a mis amigos o familiares Places Ir a mi restaurante favorito Ir a unPlaya local o un parque local Step 4: People whom I can ask for help during a crisis: Name Contact Information Sandeep Hernandez (Novio)[facility] ([place] crisis respite) [phone] [facility] Step 5: Professionals or agencies I can contact during a crisis: Clinician/Agency Name Phone Emergency Contact L ania directa de crisis [address] L ania directa de suicidio [address] Ar de emergencias local Suicide Prevention Lifeline Phone: Call or Text 988 Crisis Text Line: Text HOME to 191934 Step 6: Making the environment safer (plan for lethal means safety): Did not identify any lethal methods Optional: What is most important to me and worth living for?: Necesito vivir para m y para mi alf. Leena Safety Plan. Mitra Falcon and Reg Bey. Used with permission of the authors. Alcohol intoxication 08/25/2023 Intramural leiomyoma of uterus 06/06/2022 0 08/26/2023 Overview (08/26/2023): Last Assessment & Plan: Start ibuprofen 600mg BID the day prior to menstrual bleeding x4-5 days and FU with me in 4 month Continue to FU with DAM WORKER. Iron deficiency anemia 02/02/2017 Overview (08/26/2023): Last [...] 70 08/31/2023 6:00 AM EDT Temperature 36.4 C (97.6 F) 08/31/2023 6:00 AM EDT Respiratory Rate 16 08/31/2023 6:00 AM EDT [...] series) 2005 Pap Smear (Ages 21-65) 10/30/2007 HPV Vaccines (1 - 3-dose SCD M series) 2013 Influenza Vaccine 10/21/2024 01/06/2022, 12/17/2015 COVID-19 Vaccine (4 - 2024-2 6 season) 2024 01/06/2022, 08/27/2020, 07/26/2020 Pneumococcal Vaccine: Pediatric (0-5 Years) and At-Risk Patients (6 to 49 Years) Aged Out No longer eligible b ased on patient's age to complete this topic Insurance [facility] Advance Directives * Full Code (Latest Code Status on File) Date Activated Date Inactivated Comments 08/25/2023 6:48 PM
--- OUTSIDE RECORDS SUMMARY | 2024-12-15 21:28 | XMS_ITS ---
[facility] Name [facility] Results Test Name/Text Value Interpretation Date Range Source fentaNYL+Norfentanyl Ur Ql Scn Negative Normal 08/25/2023 - CCT PCP Ur Ql Scn>25 ng/mL Negative Normal 08/25/2023 - CCT Cannabinoids Ur Ql Scn>50 ng/mL Negative Normal 08/25/2023 - CCT Amphetamines Ur Ql Negative Normal 08/25/2023 - CCT Benzodiaz Ur Ql Scn>200 ng/mL Negative Normal 08/25/2023 - CCT Opiates Ur Ql Scn>300 ng/mL Negative Normal 08/25/2023 - CCT BZE Ur Ql Negative Normal 08/25/2023 - [facility] Folate SerPl-mCnc 17.7 ng/mL Normal 08/25/2023 7.2 - [facility] Trigl SerPl-mCnc 93.0 mg/dL Normal 08/25/2023 - 150 H [facility] LDLc SerPl Calc-mCnc 89.0 mg/dL Normal 08/25/2023 - 130 [facility] HDLc SerPl-mCnc 67.0 mg/dL Normal 08/25/2023 39 - HH CCT HDLc SerPl 2.6 Ratio Normal 08/25/2023 0 - 5 [facility] Cholest SerPl-mCnc 175.0 mg/dL Normal 08/25/2023 - 200 [facility] Albumin/Glob SerPl 1.2 Ratio Normal 08/25/2023 1 - 3 [facility] BUN/Creat SerPl 12.0 Ratio Normal 08/25/2023 10 - 25 HH CCT AST SerPl-cCnc 18.0 U/L Normal 08/25/2023 10 - 50 [facility] T ALP SerPl-cCnc 80.0 U/L Normal 08/25/2023 32 - 122 [facility] T Globulin Ser Calc-mCnc 3.3 g/dL Normal 08/25/2023 1.5 - 3.9 [facility] Bilirub SerPl-mCnc 0.2 mg/dL Normal 08/25/2023 0.2 - 1 [facility] Potassium SerPl-sCnc 3.3 mmol/L Below low normal 08/25/2023 3.4 - 5.3 [facility] Chloride SerPl-sCnc 99.0 mmol/L Normal 08/25/2023 98 - 10 7 [facility] Albumin SerPl-mCnc 4.1 g/dL Normal 08/25/2023 3.5 - 5 [facility] Creat SerPl-mCnc 0.5 mg/dL Normal 08/25/2023 0.4 - 1.1 HH CCT Sodium SerPl-sCnc 134.0 mmol/L Below low normal 08/25/2023 1 36 - 145 [facility] CO2 SerPl-sCnc 24.0 mmol/L Normal 08/25/2023 22 - 33 HH CCT Glucose SerPl-mCnc 136.0 mg/dL Above high normal 08/25/2023 65 - 99 [facility] GFR/BSA.pred SerPlBld EYL-IAY-VaGNcv >90.0 Normal 08/25/2023 59 - [facility] Calcium SerPl-mCnc 9.0 mg/dL Normal 08/25/2023 8.7 - 10.5 [facility] Prot SerPl-mCnc 7.4 g/dL Normal 08/25/2023 6.3 - 8.[address] Anion Gap Bld-sCnc 11.0 Normal 08/25/2023 7 - 17 [facility] ALT SerPl-cCnc 13.0 U/L Normal 08/25/2023 10 - 50 [facility] T BUN SerPl-mCnc 6.0 mg/dL Below low normal 08/25/2023 8 - 21 [facility] Vit B12 SerPl-mCnc 301.0 pg/mL Normal 08/25/2023 243 - 89 4 [facility] TSH SerPl DL<=0.005 mIU/L-aCnc 2.15 mIU/L Normal 08/25/2023 0.27 - 4.2 [facility] Est. average glucose Bld gHb Est-mCnc 103.0 mg/dL Normal 08/25/2023 [facility] Hgb A1c MFr Bld 5.2 % Normal 08/25/2023 - 5.[address] Lymphocytes num Bld Auto 1.75 Thou/uL Normal 08/25/2023 1.5 - 4.5 [facility] Imm Granulocytes/leuk NFr Bld Auto 0.3 % Normal 08/25/2023 [facility] Basophils num Bld Auto 0.02 Thou/uL Normal 08/25/2023 0 - 0.2 [facility] Hgb Bld-mCnc 10.5 g/dL Below low normal 08/25/2023 11.7 - 15 .7 [facility] Neutrophils/leuk NFr Bld Auto 68.1 % Normal 08/25/2023 [facility] WBC num Bld Auto 7.8 Thou/uL Normal 08/25/2023 4 - 11 [facility] MCH RBC Qn Auto 23.3 pg Below low normal 08/25/2023 26 - 3 4 [facility] PMV Bld Auto 10.8 fL Normal 08/25/2023 7.5 - 12.5 [facility] Monocytes/leuk NFr Bld Auto 7.3 % Normal 08/25/2023 [facility] Eosinophil num Bld Auto 0.12 Thou/uL Normal 08/25/2023 0 - 0.7 [facility] Basophils/leuk NFr Bld Auto 0.3 % Normal 08/25/2023 [facility] Monocytes num Bld Auto 0.57 Thou/uL Normal 08/25/2023 0.2 - 1.5 [facility] Eosinophil/leuk NFr Bld Auto 1.5 % Normal 08/25/2023 [facility] RBC num Bld Auto 4.5 Mil/uL Normal 08/25/2023 4 - 5.4 H [facility] Hct VFr Bld Auto 34.4 % Below low normal 08/25/2023 35 - 47 [facility] MCHC RBC Auto-mCnc 30.5 g/dL Normal 08/25/2023 30 - 36 [facility] RDW RBC Auto-Rto 17.2 % Above high normal 08/25/2023 11.5 - 14.5 [facility] Lymphocytes/leuk NFr Bld Auto 22.5 % Normal 08/25/2023 [facility] Imm Granulocytes num Bld Auto 0.02 Thou/uL Normal 08/25/2023 0 - 0.1 [facility] MCV RBC Auto 76.0 fL Below low normal 08/25/2023 80 - 100 [facility] Neutrophils num Bld Auto 5.3 Thou/uL Normal 08/25/2023 2 - 7.5 [facility] Platelet num Bld Auto 273.0 Thou/uL Normal 08/25/2023 150 - 450 [facility] Encounters Encounter Type Encounter Reason Primary Diagnosis Location Date Observation Bipolar disorder, unspecified Bipolar disorder, unspecified [facility] 08[facility]23 Care Team Organization Name Specialty Phone Email Start Date End Da te [facility] 08/25/2023 06/08/2024 [facility] 08/25/2023
--- OUTSIDE RECORDS SUMMARY | 2024-12-15 21:28 | XMS_ITS | Clinical Summary ---
Author Organization [employer] Address [address] [facility] [address] [place] [address] Care Team Providers Care Spinner Fixer Name Role Phone Rahda Cherry MD Primary Care Provider + Allergies [...] in 4 month Continue to FU with [employer]. Colitis 02/11/2022 Dysuria 02/11/2022 Incontinence of feces [...] Encounters Date Type Department Care Team Description 12/15/2024 Orders Only GENERIC EXTERNAL DATA DEPARTMENT Provider, Generic External Data 09/17/2024 Orders Only [facility] External Provider, [facility] from Last 3 Months Immunizations Immunization Administration Dates Next Due Influenza injectable quadriv [...] 78 03/05/2022 11:21 AM EST Temperature 36.2 C (97.2 F) 03/05/2022 11:21 AM EST Respiratory Rate 16 03/05/2022 11:21 AM EST [...] 1986 HIV Screening 1986 SDOH Screening 1986 Disability Screening 1986 Alcohol/Substance Use Screening 1998 Family Planning (PISQ) 2001 HPV Vaccines (1 - 3-dose series) 2001 Hepatitis C Screening 2004 Hepatitis B Vaccines (1 of 3 - 19+ 3-dose series) 2005 Pneumococcal Vaccine: Pediatrics (0 to 5 Years) and At-Risk Patients (6 to 49) Years (1 of 2 - PCV) 2005 Tobacco Screening 03/05/2023 03/05/2022 DTaP/Tdap/Td Vaccines (3 - T d or Tdap) 06/15/2024 06/15/2014, 06/08/2008 COVID-19 Vaccine (4 - 2024-2 6 season) 2024 01/06/2022, 08/27/2020, 07/26/2020 Influenza Vaccine (#1) 2024 2, 12/17/2015 Cervical Cancer Screening 03/11/2025 HPV/Cotest 03/11/2025 Pap [...] patient's age to complete this topic Meningococcal B Vaccine Aged Out No l onger eligible based on patient's age to complete [...] PELVIS TRANSVAGINAL Routine 12/15/2024 8:27 PM EDT HCG, TOTAL, QN Routine 12/15/2024 7:35 PM EDT MAGNESIUM Routine 12/15/2024 7:35 PM EDT BASIC METABOLIC PANEL Routine 12/15/2024 7:35 PM EDT HEPATIC FUNCTION PANEL Routine 12/15/2024 7:35 PM EDT CBC WITH AUTO DIFFERENTIAL Routine 12/15/2024 7:35 PM EDT XR KNEE 3 VIEWS LEFT Routine 09/18/2024 12:44 AM EDT XR TIBIA FIBULA 2 VIEWS LEFT Routine 09/17/2024 11:42 PM EDT XR ANKLE 2 VIEWS LEFT Routine 09/17/2024 10:44 PM EDT PAP SMEAR Routine 03/11/2022 12:00 AM EST from Last 3 Months or Most Recently Relevant to Health Maintenance Results * US Pelvis Transvaginal (12/15/2024 8:27 PM EDT) Anatomical Region Laterality Modality Pelvis Ultrasound 12/15/2024 8:27 PM EDT Narrative 12/15/2024 8:28 PM EDT [address] [address] Ultrasound Report Signed Patient: Peri Blank MR#: [id number] 030 : 1985 Acct:[id number] Age/Sex: 39 / F ADM Date: 12/15/24 Loc: HO.ED Attending Dr: Ordering Physician: Fernanda Ng Date of Service: 12/15/24 Procedure(s): US pelvic and transvaginal Accession Number(s): [id number] cc: Radha Cherry MD; Fernanda Ng Reason for Exam: suprapubic pain, hx of ovarian cysts CLINICAL HISTORY: suprapubic pain, hx of ovarian cysts US pelvis transabdominal and transvaginal with Doppler Comparison: US/WA/SR - US PELVIS - 04/11/22 10:57 EST [...] in OV> 12/15/242027 DD/ 26 TD/TT: 12/15/242026 Song Lyricist: Procedure Note Donotuseinterpreter, Image - 12/15/2024 [place] [address] Ultrasound Report Signed Patient: Peri BlankMR#: [id number] 030 : 1985Acct:[id number] Age/Sex: 39 / FADM Date: 12/15/24 Loc: HO.ED Attending Dr: Ordering Physician: Fernanda Ng Date of Service: 12/15/24 Procedure(s): US pelvic and transvaginal Accession Number(s): [id number] cc: Radha Cherry MD; Fernanda Ng Reason for Exam: suprapubic pain, hx of ovarian cysts CLINICAL HISTORY: suprapubic pain, hx of ovarian cysts US pelvis transabdominal and transvaginal with Doppler Comparison: US/WA/SR - US PELVIS - 04/11/22 10:57 EST [...] in OV> 12/15/242027 DD/ 26 TD/TT: 12/15/242026 Song Lyricist: us [facility] External Provider IMG US PROCEDURES Final Result * (ABNORMAL) CBC auto differential (12/15/2024 7:35 PM EDT) White Blood Count 8.4 4.8 - 10.8 X10*3/uL [facility] Red Blood Count 4.30 4.20 - 5.50 X10*6/uL [facility] Hemoglobin 10.3(L) 12.0 - 16.0 g/dl [facility] Hematocrit 34.0(L) 37.0 - 47.0 % [facility] Mean Corpuscular Volume 79.1(L) 80.0 - 98.0 fL [facility] Mean Corpuscular Hemoglobin 24.0(L) 27.0 - 33.0 pg [facility] Mean Corpuscular HGB Conc 30.3(L) 31.0 - 35.0 g/dl [facility] Red Cell Distribution Width 17.4(H) 11.0 - 16.0 % [facility] Platelet Count 241 160 - 400 X10*3/uL [facility] Mean Platelet Volume 11.1 9.4 - 12.3 fL [facility] Neutrophils Percent Auto 69.0 45 - 73 % [facility] Imm Gran Pct Auto 0.4 0.0 - 0.4 % [facility] Lymphocytes Percent Auto 21.1 20 - 40 % [facility] Monocytes Percent Auto 7.4 2 - 11 % [facility] Eosinophils Percent Auto 2.0 0 - 4 % [facility] Basophils Percent Auto 0.1 0 - 2 % [facility] NRBC Pct Auto 0.0 0.0 - 0.2 /100WBC [facility] Neutrophils Absolute Auto 5.8 2.0 - 8.3 x10*3/uL [facility] Imm Gran Abs Auto 0.03 0.00 - 0.03 X10*3/uL [facility] Lymphocytes Absolute Auto 1.8 1.2 - 4.9 X10*3/uL [facility] Monocytes Absolute Auto 0.6 0.1 - 1.2 X10*3/uL [facility] Eosinophils Absolute Auto 0.2 0.0 - 0.4 X10*3/uL [facility] Basophils Absolute Auto 0.0 0.0 - 0.2 X10*3/uL [facility] NRBC Abs Auto 0.000 0.0 - 0.012 X10*3/uL [facility] 12/15/2024 7:35 PM EDT 12/15/2024 7:35 PM EDT us Generic External Data Provider LAB BLOOD ORDERAB LES Final Result [facility] [address] [place] [phone] * hCG, Total, Quantitative (12/15/2024 7:35 PM EDT) HCG Quantitative <2 mIU/mL [facility] Comment:Weeks post LMP Appro ximate hCG(Last Menstrual Period) Range (mIU/ml)3 - 4 weeks 9 - 1304 - 5 weeks 75 - 2,6005 - 6 weeks 850 - 20,8006 - 7 weeks 4000 - 100,2007 - 12 weeks 11,500 - 289,78582 - 16 weeks 18,300 - 137,44675 - 29 weeks (2nd trimester) 1,400 - 53,58477 - 41 weeks (3rd trimester) 940 - [...] ORDERAB LES Final Result Performing Organization Address [facility] [address]/[facility] Co de Phone Number [facility] [address] [place] [phone] * Magnesium (12/15/2024 7:35 PM EDT) Pathologist [facility] Magnesium 2.0 1.6 - 2.6 mg/dL [facility] 12/15/2024 7:35 PM EDT 12/15/2024 7:35 PM EDT us Generic External Data Provider LAB BLOOD ORDERAB LES Final Result Performing Organization Address [facility] de Phone Number [facility] [address] [place] [phone] * Hepatic Function Panel (12/15/2024 7:35 PM EDT) Bilirubin, Total 0.1 0.0 - 1.0 mg/dL [facility] Bilirubin, Direct <0.2 0.0 - 0.5 mg/dL [facility] Aspartate Amino Transferase 20 5 - 31 U/L [facility] Alanine Aminotransferase 19 0 - 31 U/L [facility] Total Protein 7.4 6.5 - 8.0 g/dL [facility] Albumin Level 4.0 3.5 - 5.0 g/dL [facility] Alkaline Phosphatase 103 39 - 117 U/L [facility] 12/15/2024 7:35 PM EDT 12/15/2024 7:35 PM EDT us Generic External Data Provider LAB BLOOD ORDERAB LES Final Result Performing Organization Address [facility] [address]/ZIP Co de Phone Number [facility] [address] [place] [phone] * (ABNORMAL) Basic Metabolic Panel (12/15/2024 7:35 PM EDT) Sodium 138 135 - 145 mmol/L [facility] Potassium 4.3 3.3 - 5.1 mmol/L [facility] Chloride 105 96 - 108 mmol/L [facility] Carbon Dioxide 27 22 - 29 mmol/L [facility] Anion Gap 10(L) 12 - 20 [facility] Urea Nitrogen (BUN) 11 9 - 16 mg/dL [facility] Creatinine, Serum 0.65 0.5 - 1.4 mg/dL [facility] Creatinine Clr Calc Pharmacy 123.7 [facility] Comment:Provided height and weight: 154.94 cm,95.3 kg.eGFR (calculated from the MDRD study equation) and eCrCl(calculated from the Cockcroft-Gault equation) are based ondifferent parameters and may not yield comparable results.If eCrCl result is absurd, please check patient'sheight/weight. Estimated Glomerular Filt Rate >60 [facility] Comment:Chronic Kidney Disea se: Estimated GFR < 60 mL/min/1.56p5Ezyrbp Kidney Disease: Estimated GFR < 15 mL/min/1.73m2 Glucose 97 60 - 115 mg/dL [facility] Calcium 8.6 8.4 - 10.2 mg/dL [facility] 12/15/2024 7:35 PM EDT 12/15/2024 7:35 PM EDT us Generic External Data Provider LAB BLOOD ORDERAB LES Final Result Performing Organization Address [facility] [address]/ZIP Co de Phone Number [facility] [address] [place] [phone] * XR Knee 3 Views Left (09/18/2024 12:44 AM EDT) Anatomical Region Laterality Modality Lower Extremities, Knee Left Radiogra phic Imaging 09/18/2024 12:4 4 AM EDT Narrative 09/18/2024 12:46 AM EDT [address] [address] XRay Report Signed Patient: Peri Blank MR#: [id number] 030 : 1985 Acct:[id number] Age/Sex: 38 / F ADM Date: 09/17/24 Loc: HO.ED Attending Dr: Ordering Physician: Haley Medina MD Date of Service: 09/17/24 Procedure(s): XR knee LT 3V Accession Number(s): [id number] cc: Radha Cherry MD; Haley Medina MD CLINICAL HISTORY: pain 4 view left knee Comparison: None provided Findings: Bones intact. No dislocations. No significant arthritic change or erosions. No joint effusion. No radiopaque foreign body. IMPRESSION: 1. No acute findings. This document has been electronically signed by: Paty Germain MD on 09/18/2024 00:44:33 Dictated By: Paty Germain MD Signed By: <Electronically signed by Paty Germain MD in OV> 09/18/2444 DD/ TD/TT: 09/18/2443 Song Lyricist: Procedure Note Donotuseinterpreter, Image - 09/18/[address] [address] XRay Report Signed Patient: Peri BlankMR#: [id number] 030 : 1985Acct:[id number] Age/Sex: 38 / FADM Date: 09/17/24 Loc: HO.ED Attending Dr: Ordering Physician: Haley Medina MD Date of Service: 09/17/24 Procedure(s): XR knee LT 3V Accession Number(s): [id number] cc: Radha Cherry MD; Haley Medina MD CLINICAL HISTORY: pain 4 view left knee Comparison: None provided Findings: Bones intact. No dislocations. No significant arthritic change or erosions. No joint effusion. No radiopaque foreign body. IMPRESSION: 1. No acute findings. This document has been electronically signed by: Paty Germain MD on 09/18/2024 00:44:33 Dictated By: Paty Germain MD Signed By: <Electronically signed by Paty Germain MD in OV> 09/18/2444 DD/ TD/TT: 09/18/2443 Song Lyricist: [facility] External Provider IMG XR PROCEDURES Edited Result - Final * XR Tibia Fibula 2 Views Left (09/17/2024 11:42 PM EDT) Anatomical Region Laterality Modality Lower Extremities, Lower Leg Left Rad iographic Imaging 09/17/2024 11:4 2 PM EDT Narrative 09/17/2024 11:44 PM EDT [place] [address] XRay Report Signed Patient: Peri Blank MR#: [id number] 030 : 1985 Acct:[id number] Age/Sex: 38 / F ADM Date: 09/17/24 Loc: HO.ED Attending Dr: Ordering Physician: Haley Medina MD Date of Service: 09/17/24 Procedure(s): XR tibia fibula LT 2V Accession Number(s): [id number] cc: Radha Cherry MD; Haley Medina MD CLINICAL HISTORY: pain 2 view left tibia-fibula Comparison: None provided Findings No fractures or dislocations. No joint effusion. No significant arthritic change. No radiopaque foreign body. IMPRESSION: 1. No Acute fracture or dislocation. This document has been electronically signed by: Paty Germain MD on 09/17/2024 23:42:45 Dictated By: Paty Germain MD Signed By: <Electronically signed by Paty Germain MD in OV> 09/17/242343 DD/ 41 TD/TT: 09/17/242341 Song Lyricist: Procedure Note Claireter, Image - 06/28/[address] [address] XRay Report Signed Patient: Peri BlankMR#: [id number] 030 : 1985Acct:[id number] Age/Sex: 38 / FADM Date: 09/17/24 Loc: HO.ED Attending Dr: Ordering Physician: Haley Medina MD Date of Service: 09/17/24 Procedure(s): XR tibia fibula LT 2V Accession Number(s): [id number] cc: Radha Cherry MD; Haley Medina MD CLINICAL HISTORY: pain 2 view left tibia-fibula Comparison: None provided Findings No fractures or dislocations. No joint effusion. No significant arthritic change. No radiopaque foreign body. IMPRESSION: 1. No Acute fracture or dislocation. This document has been electronically signed by: Paty Germain MD on 09/17/2024 23:42:45 Dictated By: Paty Germain MD Signed By: <Electronically signed by Paty Germain MD in OV> 09/17/242343 DD/ 41 TD/TT: 09/17/242341 Song Lyricist: [facility] External Provider IMG XR PROCEDURES Edited Result - Final * XR Ankle 2 Views Left (09/17/2024 10:44 PM EDT) Anatomical Region Laterality Modality Lower Extremities, Ankle Left Radiogr aphic Imaging 09/17/2024 10:4 4 PM EDT Narrative 09/17/2024 10:45 PM EDT [address] [address] XRay Report Signed Patient: Peri Blank MR#: [id number] 030 : 1985 Acct:[id number] Age/Sex: 38 / F ADM Date: 09/17/24 Loc: HO.ED Attending Dr: Ordering Physician: Haley Medina MD Date of Service: 09/17/24 Procedure(s): XR ankle LT 2V Accession Number(s): [id number] cc: Radha Cherry MD; Haley Medina MD CLINICAL HISTORY: pain swelling s p trauma 3 view left ankle Comparison: None provided Findings: No acute fractures. Ankle mortise intact. No significant arthritic change or erosions. No ankle effusion. Diffuse soft tissue prominence either swelling or body habitus. IMPRESSION: 1. No acute fracture or dislocation. This document has been electronically signed by: Paty Germain MD on 09/17/2024 22:44:05 Dictated By: Paty Germain MD Signed By: <Electronically signed by Paty Germain MD in OV> 09/17/242244 DD/ 43 TD/TT: 09/17/242243 Song Lyricist: Procedure Note Jose C, Rigo - 09/17/2024 [place] [address] XRay Report Signed Patient: Peri BlankMR#: [id number] 030 : 1985Acct:[id number] Age/Sex: 38 / FADM Date: 09/17/24 Loc: .ED Attending Dr: Ordering Physician: Haley Medina MD Date of Service: 09/17/24 Procedure(s): XR ankle LT 2V Accession Number(s): [id number] cc: Radha Cherry MD; Haley Medina MD CLINICAL HISTORY: pain swelling s p trauma 3 view left ankle Comparison: None provided Findings: No acute fractures. Ankle mortise intact. No significant arthritic change or erosions. No ankle effusion. Diffuse soft tissue prominence either swelling or body habitus. IMPRESSION: 1. No acute fracture or dislocation. This document has been electronically signed by: Paty Germain MD on 09/17/2024 22:44:05 Dictated By: Paty Germain MD Signed By: <Electronically signed by Paty Germain MD in OV> 09/17/242244 DD/ 43 TD/TT: 09/17/242243 Song Lyricist: [facility] External Provider IMG XR PROCEDURES Edited Result - Final * Pap Smear (03/11/2022 12:00 AM EST) Swab Radha Cherry MD LAB CYTOLOGY ORDERABLES Final Result [facility] [address] [facility], [place] [phone] from Last 3 Months or Most Recently Relevant to Health Maintenance Insurance [employer] C3 Care Teams Spinner Fixer Relationship Specialty Start Date End Date Radha Cherry MD [address] [place] [phone] PCP - General Family Medicine 07/23/18
--- OUTSIDE RECORDS SUMMARY | 2024-12-15 21:28 | XMS_ITS | Clinical Summary ---
Author Organization [facility] Address [address] [place] [address] Care Team Providers Care Waste Water Operator Name Role Phone Unavailable Primary Care Provider Unavailabl e Source Comments PLEASE NOTE, if this patient is a minor, it may be UNLAWFUL to discuss sensitive information that is contained in these records (such as FAMILY PLANNING, MENTAL HEALTH or SUBSTANCE ABUSE) with the minor patient's parent or other person without the patient's specific authorization.[facility] Encounters Date Type Department Care Team Description 10/04/2024 1:00 PM EDT Office Visit [facility] [address] [place] [phone] John Reyes DDS from Last 3 Months Social History Tobacco Use Types Packs/Day Years Used Date Smoking Tobacco: Never Assessed Comments Unknown Sex and Gender Information Value Date Recorded Sex Assigned at Not on file Legal Sex Female 11:36 AM PDT Gender Identity Not on file Sexual Orientation Not on file Last Filed Vital Signs Vital Sign Reading Time Taken Comments Blood Pressure 126/77 10/04/2024 1:21 PM EDT Pulse 75 10/04/2024 1:21 PM EDT Temperature - - Respiratory Rate - - Oxygen Saturation - - Inhaled Oxygen Concentration - - Weight - - Height - - Body Mass Index - - Plan of Treatment Health Maintenance Due Date Last Done Comments Anxiety Screening 1986 HPV Screening 1986 Hepatitis C Screening 1986 Pap + HPV 1986 Tobacco Screening 1986 HIV Screening 2001 Relationship Safety Screening/Counseling 2001 Imm-Hepatitis B (1 of 3 - 19 + 3-dose series) 2005 Cervical Cancer Screening 10/30/2007 Pap Smear 10/30/2007 Imm-HPV (1 - 3-dose SCDM series) 2013 Alcohol and Drug Screen 03/23/2024 Depression Annual Screen 03/23/2024 Imm-DTaP/Tdap/Td (3 - Td or Tdap) 06/15/2024 015, 06/08/2008 [id number] (4 - season) 2024 01/06/2022, 08/27/2020, 07/26/2020 Imm-Influenza (#1) 2024 01/06/2022, 12/17/2015 Dental BW 05/22/2025 05/20/2024 Dental Examination 05/22/2025 05/20/2024 Dental Perio Charting 05/22/2025 05/20/2024 Dental Prophy 05/22/2025 05/20/2024 Diabetes Screening 07/09/2027 07/08/2024, 08/25/2023 Hypertension Screening (#1) 10/04/2027 Dental FMX/Pano 05/22/2029 05/20/2024 Cervical Ablation/Cold-Knife Conization Discontinued Cervical Cryotherapy Discontinued Colposcopy Discontinued Endometrial Biopsy Discontinued Excision/Leep Discontinued HPV Genotyping Discontinued Vaginal Pap Discontinued Vulvoscopy Discontinued Procedures Procedure Name Priority Date/Time Associated Diagnosis Comments 28 B(V) RESIN-BASED COMPOSITE - ONE SURFACE POSTERIOR Routine 10/04/2024 1:00 PM EDT [facility] 21 B(V) RESIN-BASED COMPOSITE - ONE SURFACE POSTERIOR Routine 10/04/2024 1:00 PM EDT Caries 26 F(V) RESIN-BASED COMPOSITE ONE SURFACE ANTERIOR Routine 10/04/2024 1:00 PM EDT Caries 27 F(V) RESIN-BASED COMPOSITE ONE SURFACE ANTERIOR Routine 10/04/2024 1:00 PM EDT [facility] INTRAORAL - COMP SERIES OF RADIOGRAPHIC IMAGES Routine 05/20/2024 1:00 PM EST [facility]ies of enamel (incipient) [facility] PROPHYLAXIS - ADULT Routine 05/20/2024 1 :00 PM EST Caries of enamel (incipient) [facility] COMP ORAL EVALUATION - NEW/ESTABLISHED PATIENT Routine 05/20/2024 1:00 PM EST Caries of enamel (incipient) Caries from Last 3 Months or Most Recently Relevant to Health Maintenance Insurance [place] MEDICAID [place]ENT[place]
[2024-12-15 22:26] LABS: Appearance Urine Clear; Glucose Urine UA Negative (Negative); PH 7.5 (5.0-9.0); Specific Gravity - Urine 1.015 (1.005-1.025); UMIC TRIGGER UACC YES
[2024-12-15 22:32] VITALS: BP 108/53; PULSE 69; RESP 16; TEMP 36.7; O2SAT 100
[2024-12-15] MEDS: iohexoL 350 MG/ML 100 ML INFUS..BTL 85 ML IV (23:57)
[2024-12-16 01:22] VITALS: BP 118/68; PULSE 83; RESP 16; TEMP 37; O2SAT 98
[2024-12-16 01:27] VITALS: BP 118/68; PULSE 83; RESP 16; TEMP 37; O2SAT 98
== END 2024-12-16 01:28 | disposition home or self-care (01) ==
PROVIDERS: Physician Assistant Medical; Emergency Provider Student in an Organized Health Care Education/Training Program; PCP Internal Medicine
DX: N83.201 Unspecified ovarian cyst, right side (principal); I49.9 Cardiac arrhythmia, unspecified; R42 Dizziness and giddiness; R10.31 Right lower quadrant pain; K92.1 Melena; Z79.899 Other long term (current) drug therapy
CPT/HCPCS: 36415; 74177; 76830; 76856; 80048; 80076; 81001; 83735; 84702; 85025; 93005; 96374; 99285; J1885; Q9967

== ENCOUNTER → 2024-12-15 19:11 | Outpatient (BNV) | payer MEDICAID, SELFPAY | PROVIDERS: PCP Internal Medicine; Visit Provider Student in an Organized Health Care Education/Training Program | DX: E27.8 Other specified disorders of adrenal gland (principal) | CPT/HCPCS: 74177; 76830; 76856 ==

== ENCOUNTER → 2024-12-15 19:13 | Outpatient (BNV) | payer MEDICAID, SELFPAY | PROVIDERS: Emergency Provider Student in an Organized Health Care Education/Training Program; PCP Internal Medicine; Visit Provider Internal Medicine Cardiovascular Disease | DX: R42 Dizziness and giddiness (principal) | CPT/HCPCS: 93010 ==